=== PATIENT | male | born 1950 | race Caucasian/White ===

== ENCOUNTER 2017-02-25 14:01 | Inpatient (IN) | payer OTHER ==
[~2017-02-25] VITALS: Ht 179.1 cm; Wt 104.2 kg
[2017-02-25] VITALS (11 sets, daily range): BP systolic 132–155; BP diastolic 59–81; PULSE 60–100; RESP 14–20; TEMP 98.4; O2SAT 95–98
[2017-02-25] MEDS ORDERED: SODIUM CHLORIDE 0.9% FLUSH 10 ML FLUSH IVF PRN (14:15)
[2017-02-25] MEDS ORDERED: NITROGLYCERIN 2% OINT 1 GM PACKET TOPICAL ONE (14:15)
[2017-02-25] MEDS ORDERED: ASPIRIN 325 MG TAB PO ONE (14:15)
--- NOTE | 2017-02-25 14:19 | PD ---
HPI Chief Complaint: postcode Time Seen by Provider: 14:11 Travel History International Travel<30 days: No Contact w/Intl Traveler<30days: No Traveled to known affect area: No History of Present Illness HPI 66-year-old male with history of hypertension, presents to the ER today because he states that he was on the beach with [place] when he started not feeling well , collapsed, and his son got help from [employer], and AED was placed and recommended defibrillation, he was defibrillated with return of spontaneous circulation. He is awake, alert, and but does not recall the episode. He is currently complaining of 6 out of 10 substernal sharp left-sided chest pains with some nausea. He denies any shortness of breath or any other symptoms. Modifying Factors: None Associated Signs & Symptoms: Defibrillated, syncope, chest pain Risk Factors: None PFSH Social History Tobacco Use: No Allergies-Medications (Allergen,Severity, Reaction): Coded Allergies: Penicillin (Verified Allergy, Unknown, 02/25/17) Reported Meds & Prescriptions Reported Meds & Active Scripts Active Reported Vitamin E (Vitamin E Acetate) 400 Unit Capsule 400 Units PO DAILY B Complex (B-Complex Vitamins) 1 Cap 1 Cap PO DAILY Ginkgo Biloba (Ginkgo Biloba [place] Extract) 60 Mg Tablet Unknown Dose PO DAILY Ascorbic Acid 500 Mg Tab 500 Mg PO DAILY Vitamin D3 (Cholecalciferol) 1,000 Unit Tab 1,000 Units PO DAILY Turmeric (Turmeric (Curcuma Longa)) 500 Mg Cap 500 Mg PO DAILY Oxycodone (Oxycodone HCl) 10 Mg Tab 10 Mg PO Q6H PRN Review of Systems Except as stated in HPI: all other systems reviewed are Neg Physical Exam Narrative GENERAL: Well-developed elderly white male patient currently in moderate distress. Awake and oriented 3. SKIN: Focused skin assessment warm/dry. HEAD: Atraumatic. Normocephalic. EYES: Pupils equal and round. No scleral icterus. No injection or drainage. ENT: No nasal bleeding or discharge. Mucous membranes pink and moist. NECK: Trachea midline. No JVD. CARDIOVASCULAR: Regular rate and rhythm. No murmur appreciated. Pulses are present and equal bilaterally. RESPIRATORY: No accessory muscle use. Clear to auscultation. Breath sounds equal bilaterally. GASTROINTESTINAL: Abdomen soft, non-tender, nondistended. Hepatic and splenic margins not palpable. MUSCULOSKELETAL: No obvious deformities. No clubbing. No cyanosis. No edema. NEUROLOGICAL: Awake and alert. No obvious cranial nerve deficits. Motor grossly within normal limits. Normal speech. PSYCHIATRIC: Appropriate mood and affect; insight and judgment normal. Data Data Last Documented VS Vital Signs Date Time Temp Pulse Resp B/P Pulse Ox O2 Delivery O2 Flow Rate FiO2 02/25/17 16:28 74 14 136/81 96 Room Air 02/25/17 14:18 2 02/25/17 14:06 98.4 Orders Electrocardiogram (02/25/17 14:11) Ckmb (Isoenzyme) Profile (02/25/17 14:11) Complete Blood Count With Diff (02/25/17 14:11) Comprehensive Metabolic Panel (02/25/17 14:11) Magnesium (Mg) (02/25/17 14:11) Prothrombin Time / Inr (Pt) (02/25/17 14:11) Act Partial Throm Time (Ptt) (02/25/17 14:11) Troponin I (02/25/17 14:11) Chest, Single Ap (02/25/17 14:11) Ecg Monitoring (02/25/17 14:11) Bilateral Bp Monitoring (02/25/17 14:11) Iv Access Insert/Monitor (02/25/17 14:11) Oximetry (02/25/17 14:11) Oxygen Administration (02/25/17 14:11) Sodium Chloride 0.9% Flush (Ns Flush) (02/25/17 14:15) Aspirin (Aspirin) (02/25/17 14:15) Nitroglycerin 2% Oint (Nitroglycerin 2% (02/25/17 14:15) CKMB (02/25/17 14:15) CKMB% (02/25/17 14:15) Heparin Infusion CLAIRE.Q1H (02/25/17 15:34) Heparin Inj (Heparin Inj) (02/25/17 15:45) Heparin Inj (Heparin Inj) (02/25/17 21:45) Heparin Inj (Heparin Inj) (02/25/17 21:45) Heparin-D5w Inj (Heparin-D5w Inj) (02/25/17 15:45) Act Partial Throm Time (Ptt) (02/25/17 15:34) Cbc No Diff, Includes Plts (02/25/17 15:34) Cbc No Diff, Includes Plts (02/28/17 06:00) Act Partial Throm Time (Ptt) (02/25/17 22:34) Occult Blood (Hemoccult) Stool (02/25/17 15:34) Consult Cardiology (02/25/17 ) (Hub Use Only)Inp Phy Cons/Ref (02/25/17 ) Labs Laboratory Tests Test 02/25/17 14:15 White Blood Count 20.5 TH/MM3 Red Blood Count 5.15 MIL/MM3 Hemoglobin 15.6 GM/DL Hematocrit 47.1 % Mean Corpuscular Volume 91.3 FL Mean Corpuscular Hemoglobin 30.3 PG Mean Corpuscular Hemoglobin 33.2 % Concent Red Cell Distribution Width 14.1 % Platelet Count 218 TH/MM3 Mean Platelet Volume 9.1 FL Neutrophils (%) (Auto) 78.0 % Lymphocytes (%) (Auto) 15.8 % Monocytes (%) (Auto) 4.9 % Eosinophils (%) (Auto) 1.0 % Basophils (%) (Auto) 0.3 % Neutrophils # (Auto) 16.0 TH/MM3 Lymphocytes # (Auto) 3.2 TH/MM3 Monocytes # (Auto) 1.0 TH/MM3 Eosinophils # (Auto) 0.2 TH/MM3 Basophils # (Auto) 0.1 TH/MM3 CBC Comment DIFF FINAL Differential Comment Prothrombin Time 10.2 SEC Prothromb Time International 0.9 RATIO Ratio Activated Partial 24.6 SEC Thromboplast Time Sodium Level 143 MEQ/L Potassium Level 3.9 MEQ/L Chloride Level 113 MEQ/L Carbon Dioxide Level 20.0 MEQ/L Anion Gap 10 MEQ/L Blood Urea Nitrogen 22 MG/DL Creatinine 1.33 MG/DL Estimat Glomerular Filtration 54 ML/MIN Rate Random Glucose 177 MG/DL Calcium Level 8.8 MG/DL Magnesium Level 2.1 MG/DL Total Bilirubin 0.7 MG/DL Aspartate Amino Transf 855 U/L (AST/SGOT) Alanine Aminotransferase 946 U/L (ALT/SGPT) Alkaline Phosphatase 82 U/L Total Creatine Kinase 401 U/L Creatine Kinase MB 6.6 NG/ML Creatine Kinase MB % 1.6 % Troponin I 0.07 NG/ML Total Protein 7.1 GM/DL Albumin 3.8 GM/DL MDM Medical Decision Making Medical Screen Exam Complete: Yes Emergency Medical Condition: Yes Medical Record Reviewed: Yes Interpretation(s) EKG shows normal sinus rhythm at a rate of [address] changes in the inferior leads and aVR. Subcentimeter changes. It is unclear whether these are new. Patient has no previous EKG here. Laboratory Tests Test 02/25/17 14:15 White Blood Count 20.5 TH/MM3 (4.0-11.0) Neutrophils (%) (Auto) 78.0 % (16.0-70.0) Neutrophils # (Auto) 16.0 TH/MM3 (1.8-7.7) Monocytes # (Auto) 1.0 TH/MM3 (0-0.9) Chloride Level 113 MEQ/L (98-107) Carbon Dioxide Level 20.0 MEQ/L (21.0-32.0) Blood Urea Nitrogen 22 MG/DL (7-18) Creatinine 1.33 MG/DL (0.60-1.30) Estimat Glomerular Filtration 54 ML/MIN (>89) Rate Random Glucose 177 MG/DL (74-106) Aspartate Amino Transf 855 U/L (15-37) (AST/SGOT) Alanine Aminotransferase 946 U/L (12-78) (ALT/SGPT) Total Creatine Kinase 401 U/L (39-308) Creatine Kinase MB 6.6 NG/ML (0.5-3.6) Troponin I 0.07 NG/ML (0.02-0.05) Last 24 hours Impressions Chest X-Ray 02/25/17 1411 Signed Impressions: Service Date/Time: Saturday, February 25, 2017 14:11 - CONCLUSION: No acute cardiopulmonary disease. Willis Reid MD Differential Diagnosis Defibrillation, chest pain, postcodeACS versus dysrhythmias versus metabolic issues Narrative Course Chest x-ray did not show any signs of acute processes. EKG showed nonspecific ST changes. Lab work shows mild elevation of troponin 0.07. There is mild elevation of LFTs and white blood cell count. His believe this may be secondary to his code, defibrillation, do marginalization. Vital signs are stable in the ER. Case was discussed with Dr. Shrestha who states that he would like the patient to be initiated on heparin. Aspirin and nitroglycerin have been given in the ER. He states that patient will likely need catheterization tomorrow. Planning to admit to medicine [facility]. Case is discussed with Dr. Trinidad for admission. Diagnosis Primary Impression: Cardiac arrest Additional Impression: Chest pain Admitting Information Admitting Physician Requests: Admit Soren Pino MD Feb 25, 2017 14:19 Soren Pino MD Feb 25, 2017 14:19
[2017-02-25 14:57] LABS: BASOPHIL # 0.1 TH/MM3 (0-0.2); BASOPHIL % 0.3 % (0.0-2.0); EOSINOPHIL # 0.2 TH/MM3 (0-0.4); HEMATOCRIT 47.1 % (39.0-51.0); HEMO FLAGS DIFF FINAL; LYMPH % 15.8 % (9.0-44.0); LYMPHOCYTE # 3.2 TH/MM3 (1.0-4.8); MEAN CELL VOLUME 91.3 FL (80.0-100.0); MEAN CORPUSCULAR HEMOGLOBIN 30.3 PG (27.0-34.0); MEAN CORPUSCULAR HGB CONC 33.2 % (32.0-36.0); MONO % 4.9 % (0.0-8.0); PLATELET COUNT 218 TH/MM3 (150-450); RED BLOOD COUNT 5.15 MIL/MM3 (4.50-5.90); RED CELL DISTRIBUTION WIDTH 14.1 % (11.6-17.2); WHITE BLOOD COUNT 20.5 TH/MM3 (4.0-11.0)
--- NOTE | 2017-02-25 14:57 | RADRPT ---
EXAM DATE/TIME: 02/25/2017 14:11 [facility] COMPARISON: No previous studies available for comparison. INDICATIONS : Chest pain and shortness of breath. Passed out in the water at the beach. MEDICAL HISTORY : None. SURGICAL HISTORY : None. ENCOUNTER: Initial ACUITY: 1 day PAIN SCORE: 6/10 LOCATION: Bilateral chest FINDINGS: The lungs are clear without infiltrate, nodule, or mass. There is no appreciable pleural effusion fo r technique. Heart and mediastinum are unremarkable. CONCLUSION: No acute cardiopulmonary disease. Willis Reid MD on February 25, 2017 at 14:55 Board Certified Radiologist. This report was verified electronically.
[2017-02-25 15:04] LABS: APTT (PATIENT) 24.6 SEC (24.3-30.1); INTERNATIONAL NORMALIZED RATIO 0.9 RATIO; PROTHROMBIN TIME - PATIENT 10.2 SEC (9.8-11.6)
[2017-02-25] MEDS ORDERED: TURM500C3 PO (15:14)
[2017-02-25] MEDS ORDERED: GINK60TA10 PO (15:14)
[2017-02-25] MEDS ORDERED: OXYC-395 PO (15:14)
[2017-02-25] MEDS ORDERED: VITA100064 PO (15:14)
[2017-02-25] MEDS ORDERED: ASCO500T PO (15:14)
[2017-02-25 15:16] LABS: ANION GAP 10 MEQ/L (5-15); AST (GOT) 855 U/L (15-37); BLOOD UREA NITROGEN 22 MG/DL (7-18); CHLORIDE 113 MEQ/L (98-107); GLOMERULAR FILTRATION RATE 54 ML/MIN (>89); MAGNESIUM 2.1 MG/DL (1.5-2.5); POTASSIUM 3.9 MEQ/L (3.5-5.1); SODIUM (NA) 143 MEQ/L (136-145)
[2017-02-25 15:17] LABS: ALT (GPT) 946 U/L (12-78)
[2017-02-25] MEDS ORDERED: VITA-136 PO (15:17)
[2017-02-25] MEDS ORDERED: VITACAP7 PO (15:17)
[2017-02-25 15:21] LABS: ALKALINE PHOSPHATASE 82 U/L (45-117); CREATINE KINASE 401 U/L (39-308); TOTAL BILIRUBIN ADULT 0.7 MG/DL (0.2-1.0)
[2017-02-25] MEDS ORDERED: HEPARIN-D5W INJ 250 ML IV SCH (15:45)
[2017-02-25] MEDS ORDERED: HEPARIN SODIUM - IV 10,000 UNITS/10 ML VIAL IV ONE (15:45)
[2017-02-25 15:47] LABS: CKMB 6.6 NG/ML (0.5-3.6)
--- NOTE | 2017-02-25 16:29 | MB ---
cc: RUTHIE RODRIGUEZ MD DATE OF CONSULTATION: 02/25/2017. REASON FOR CONSULTATION: Syncope with apparent ventricular dysrhythmia status post defibrillation HISTORY OF PRESENT ILLNESS: The patient is a very pleasant 66-year gentleman with no prior cardiac history who is visiting from [place]. He was in the water with his son when he began feeling generally unwell as if he might pass out. The next thing he realized was that he is being rushed away by EMS. Apparently per reports of EMS and bystanders, the patient had syncopized, CPR was begun, [employer] used an automatic external defibrillator which indicated defibrillation was required and a shock was delivered. The patient did regain consciousness thereafter. Unfortunately because it was an AED, I do not have any strips or any direct confirmation that it was a ventricular dysrhythmia. Currently the patient is asymptomatic with the exception of reproducible lower chest tenderness where he received CPR. He had no chest pain prior to the syncopal episode. He has no other symptoms such as shortness breath, lightheadedness, dizziness or recent episodes of syncope. PAST MEDICAL HISTORY: As above. CURRENT MEDICATIONS: Heparin drip. ALLERGIES: PENICILLIN. PHYSICAL EXAMINATION: VITAL SIGNS: Afebrile, pulse 97, respiratory rate 19, blood pressure 132/76, satting 96% on two liters. GENERAL: A very pleasant well-appearing gentleman in no distress. NECK: No jugular venous distention. CHEST: Chest wall is reproducibly tender. LUNGS: Clear to auscultation bilaterally. CARDIOVASCULAR: Regular rate and rhythm. No murmurs appreciated. ABDOMEN: Benign. EXTREMITIES: No edema. LABORATORY DATA: White count 20.5, hematocrit 47.1, platelets 218,000. Sodium 143, potassium 3.9, chloride 113, bicarb 20, BUN 22, creatinine 1.3, glucose 177. Liver function tests are notably elevated. Troponin 0.07. IMAGING STUDIES: Chest x-ray shows no acute cardiopulmonary disease. EKGS: EKG shows sinus rhythm with possible old inferior infarct, nonspecific lateral S-T changes. Minimal / nonspecific elevation in aVr. IMPRESSION: Syncope. The patient seems to have had an episode of cardiogenic syncope / aborted sudden cardiac that was successfully defibrillated. He will require a cardiac catheterization to exclude coronary artery disease, which would be the most likely diagnosis for a ventricular dysrhythmia which an AED would determine required defibrillation. He is on a heparin drip currently. He does not have any angina type chest pain and his EKG does not show any definitive S-T elevations. Thus, I believe a cardiac catheterization can occur non- emergently, though if his clinical condition changes then a cardiac catheterization could be done more urgently. He will be monitored closely on a cardiac floor. At the moment, I will hold off on amiodarone given the LFT elevation and also renal insufficiency, but if significant ectopy is seen on the monitor, I would likely initiate it at that time. Further recommendations will be based on the clinical course. Thank you again for the opportunity to participate in this patient's care. MD DEBORAH Fermin/KELECHI /4:08 PM /4:23 PM
[2017-02-25] MEDS ORDERED: MORPHINE SULFATE 4 MG/ML INJ IV PUSH ONE (17:15)
[2017-02-25] MEDS ORDERED: SENNOSIDES 8.6 MG TAB PO PRN (17:15)
[2017-02-25] MEDS ORDERED: ONDANSETRON HCL 4 MG/2 ML VIAL IVP PRN (17:15)
[2017-02-25] MEDS ORDERED: NALOXONE HCL 0.4 MG/ML AMP IV PRN (17:15)
[2017-02-25] MEDS ORDERED: MORPHINE SULFATE 4 MG/ML INJ IV PRN (17:15)
[2017-02-25] MEDS ORDERED: BISACODYL 10 MG SUPP RECTAL PRN (17:15)
[2017-02-25] MEDS ORDERED: LACTULOSE SYRUP 20 GM/30 ML CUP PO PRN (17:15)
[2017-02-25] MEDS ORDERED: MAGNESIUM HYDROXIDE SUSP 30 ML CUP PO PRN (17:15)
[2017-02-25] MEDS ORDERED: SODIUM CHLORIDE 0.9% FLUSH 10 ML FLUSH IV FLUSH PRN (17:15)
--- NOTE | 2017-02-25 17:47 | HHI.HP ---
HPI Service [facility] Hospitalists Primary Care Physician Non-Staff Admission Diagnosis dysrhythmia/chest pain/syncope Diagnoses: Chief Complaint: "I passed out and they did CPR on me." Travel History International Travel<30 Days: No Contact w/Intl Traveler <30 Da: No Traveled to Known Affected Are: No History of Present Illness Written by Ham Coronel, acting as scribe for Dr. Preston Knowles on 02/25/17 at 17:45. Mr. Reyes is 66, visiting from [place] with previous history of hypertension and stenosis of L4-L5. Mr. Reyes reported waking well except for some pain leading him to take an Aleve. He then reportedly went to a local beach to watch his son surf. He stated he was standing in the water watching his son with the development of dizziness and "I felt like I was going to go down." Pt stated he started to walk into shore and then does not recall succeeding events. Per reports, he did collapse and the [employer] began CPR, placed an AED on him and it indicated shock was required. One shock was delivered and Mr. Reyes's had spontaneous return of circulation. He was subsequently brought to [facility] ED for further treatment. At present, Mr. Reyes reports rib pain and noted "it feels like I got the crap kicked out of me." He denied headache, blurred vision, nausea, vomiting , shortness of breath. He did endorse "maybe having some diarrhea." Review of Systems Except as stated in HPI: all other systems reviewed are Neg Past Family Social History Past Medical History Hypertension. Past Surgical History Bilateral wrist repair Hernia repair Reported Medications Reported Meds & Active Scripts Active Reported Vitamin E (Vitamin E Acetate) 400 Unit Capsule 400 Units PO DAILY B Complex (B-Complex Vitamins) 1 Cap 1 Cap PO DAILY Ginkgo Biloba (Ginkgo Biloba [place] Extract) 60 Mg Tablet Unknown Dose PO DAILY Ascorbic Acid 500 Mg Tab 500 Mg PO DAILY Vitamin D3 (Cholecalciferol) 1,000 Unit Tab 1,000 Units PO DAILY Turmeric (Turmeric (Curcuma Longa)) 500 Mg Cap 500 Mg PO DAILY Oxycodone (Oxycodone HCl) 10 Mg Tab 10 Mg PO Q6H PRN Allergies: Coded Allergies: Penicillin (Verified Allergy, Unknown, 02/25/17) Active Ordered Medications Current Medications Medications (Trade) Dose Ordered Sig/Esteban Route Start Time Stop Time Status Last Admin (NS Flush) 2 ml UNSCH PRN IVF 02/25/17 14:15 (Heparin Inj) 5,000 units UNSCH PRN IV 02/25/17 21:45 Heparin Sodium (Porcine) 2500 units 2,500 units UNSCH PRN IV 02/25/17 21:45 (Heparin-D5W Inj) 250 ml @ 0 mls/hr TITRATE IV 02/25/17 15:45 02/25/17 16:40 (Morphine Inj) 2 mg ONCE ONCE IV PUSH 02/25/17 17:15 02/25/17 17:16 Family History Half brother reported to have hypertension and hyperlipidemia. Otherwise, he denied significant family medical history Social History He endorsed smoking cigarettes (pack year history and length of use not disclosed) two years ago. Currently, he "vapes." No alcohol use for the past 13 years. Recreational and illicit drug use was denied. Physical Exam Vital Signs Vital Signs Date Time Temp Pulse Resp B/P Pulse Ox O2 Delivery O2 Flow Rate FiO2 02/25/17 16:28 74 14 136/81 96 Room Air 02/25/17 15:30 90 141/72 02/25/17 14:18 97 132/76 96 Nasal Cannula 2 02/25/17 14:18 99 19 134/75 02/25/17 14:18 96 Nasal Cannula 2 02/25/17 14:06 98.4 100 16 132/76 95 Physical Exam GENERAL: This is a well-nourished, well-developed patient, in no apparent distress. SKIN: No rashes, ecchymoses or lesions. Cool and dry. HEAD: Atraumatic. Normocephalic. EYES: Pupils equal round and reactive. Extraocular motions intact. No scleral icterus. No injection or drainage. ENT: Nose without bleeding or purulent drainage. Uvula midline. Airway patent. Bite graves noted on surface of tongue. NECK: Trachea midline. No JVD or lymphadenopathy. Supple and nontender. CARDIOVASCULAR: Regular rate and rhythm without murmurs, gallops, or rubs. RESPIRATORY: Clear to auscultation. Breath sounds equal bilaterally. No wheezes , rales, or rhonchi. GASTROINTESTINAL: Abdomen soft, non-tender, nondistended. No hepato- splenomegaly or guarding. MUSCULOSKELETAL: Extremities without clubbing, cyanosis, or edema. No joint tenderness, effusion, or edema noted. NEUROLOGICAL: Awake, alert and oriented x3. Cranial nerves II through XII intact. Motor and sensory grossly within normal limits. Five out of 5 muscle strength in all muscle groups. Speech was clear and fluent. Laboratory Laboratory Tests Test 02/25/17 14:15 White Blood Count 20.5 Red Blood Count 5.15 Hemoglobin 15.6 Hematocrit 47.1 Mean Corpuscular Volume 91.3 Mean Corpuscular Hemoglobin 30.3 Mean Corpuscular Hemoglobin 33.2 Concent Red Cell Distribution Width 14.1 Platelet Count 218 Mean Platelet Volume 9.1 Neutrophils (%) (Auto) 78.0 Lymphocytes (%) (Auto) 15.8 Monocytes (%) (Auto) 4.9 Eosinophils (%) (Auto) 1.0 Basophils (%) (Auto) 0.3 Neutrophils # (Auto) 16.0 Lymphocytes # (Auto) 3.2 Monocytes # (Auto) 1.0 Eosinophils # (Auto) 0.2 Basophils # (Auto) 0.1 CBC Comment DIFF FINAL Differential Comment Prothrombin Time 10.2 Prothromb Time International 0.9 Ratio Activated Partial 24.6 Thromboplast Time Sodium Level 143 Potassium Level 3.9 Chloride Level 113 Carbon Dioxide Level 20.0 Anion Gap 10 Blood Urea Nitrogen 22 Creatinine 1.33 Estimat Glomerular Filtration 54 Rate Random Glucose 177 Calcium Level 8.8 Magnesium Level 2.1 Total Bilirubin 0.7 Aspartate Amino Transf 855 (AST/SGOT) Alanine Aminotransferase 946 (ALT/SGPT) Alkaline Phosphatase 82 Total Creatine Kinase 401 Creatine Kinase MB 6.6 Creatine Kinase MB % 1.6 Troponin I 0.07 Total Protein 7.1 Albumin 3.8 Result Diagram: 02/25/17 1415 02/25/17 1415 Imaging Last Impressions Chest X-Ray 02/25/17 1411 Signed Impressions: Service Date/Time: Saturday, February 25, 2017 14:11 - CONCLUSION: No acute cardiopulmonary disease. Willis Reid MD Assessment and Plan Problem List: (1) Cardiac arrest ICD Code: I46.9 Status: Acute (2) Chest pain ICD Code: R07.9 Status: Acute (3) Creatinine elevation ICD Code: R79.89 Status: Acute (4) Shock liver ICD Code: K72.00 Status: Acute Assessment and Plan Mr. Reyes is 66, visiting from [place] with previous history of hypertension and stenosis of L4-L5. Cardiac arrest Chest pain Creatine elevation Shock liver -Admit to Cardiac unit -Telemetry -Serial troponin and CPK ordered, trend -Cardiology consulted, seen, and following pt, cardiac catheterization likely in near future. -Heparin drip -Hepatitis panel, liver ultrasound ordered. -Labs ordered for am -Gentle IV hydration -Avoid nephrotoxic agents. Diet: healthy heart DVT prophylaxis: Heparin I spoke with Dr. Shrestha, Cardiology, who recommended admission to [facility] for close monitoring. This note was transcribed by suad Coronel. I, Dr. Greg Knowles personally performed the history, physical exam, and medical decision making; and confirmed the accuracy of the information in the transcribed note. Authenticated by Dr. Greg Knowles on 02/25/17 at 17:54. Code Status Full Discussed Condition With Pt and ED staff Physician Certification 2 Midnight Certification Type: Admission for Inpatient Services Order for Inpatient Services The services are ordered in accordance with Medicare regulations or non- Medicare payer requirements, as applicable. In the case of services not specified as inpatient-only, they are appropriately provided as inpatient services in accordance with the 2-midnight benchmark. Estimated LOS (days): 3 Three days is the estimated time the patient will need to remain in the hospital , assuming treatment plan goals are met and no additional complications. Post-Hospital Plan: Not yet determined Problem Qualifiers (1) Chest pain: Qualified Code: R07.89 - Other chest pain Ham Coronel Jr. Feb 25, 2017 17:47 Greg Knowles MD Feb 25, 2017 17:55
[2017-02-25] MEDS ORDERED: MORPHINE SULFATE 8 MG/ML INJ IV PUSH ONE (18:00)
[2017-02-25] MEDS ORDERED: NS + KCL 20 MEQ INJ 1,000 ML IV SCH (20:00)
[2017-02-25] MEDS: SODIUM CHLORIDE 0.9% FLUSH 10 ML FLUSH IV FLUSH SCH (21:17)
[2017-02-25] MEDS: DOCUSATE SODIUM 50 MG/SENNA 8.6 MG TAB PO SCH (21:17)
[2017-02-25] MEDS ORDERED: HEPARIN SODIUM - IV 10,000 UNITS/10 ML VIAL IV PRN ×2 (21:45)
[2017-02-25 21:57] LABS: CKMB 10.6 NG/ML (0.5-3.6)
[2017-02-25] MEDS: MORPHINE SULFATE 4 MG/ML INJ IV PRN (22:14)
--- NOTE | 2017-02-25 23:13 | RADRPT ---
EXAM DATE/TIME: 02/25/2017 22:28 [facility] COMPARISON: No previous studies available for comparison. INDICATIONS : Increased lab values. MEDICAL HISTORY : Hypertension. SURGICAL HISTORY : Tonsillectomy. Hernia repair. Bilateral wrist repair. ENCOUNTER: Initial ACUITY: 1 day PAIN SCORE: 10/10 LOCATION: Right upper quadrant MEASUREMENTS: LIVER: 16.5 cm length COMMON DUCT: 3 mm RIGHT KIDNEY: 11.1 x 6.4 x 6.0 cm SPLEEN: 9.6 cm length FINDINGS: LIVER: Increased echotexture without focal mass or ductal dilatation. The liver parenchyma is inhomogeneous and there is mild hepatomegaly. Main portal vein is patent with hepatofugal flow. COMMON DUCT: No intraluminal mass or stone visualized. GALLBLADDER: Contains no stones, or pericholecystic fluid. Mild wall thickening PANCREAS: The visualized portions are within normal limits. RIGHT KIDNEY: No hydronephrosis, stone or mass. SPLEEN: No focal lesion. CONCLUSION: 1. Increased echotexture of the liver parenchyma which is inhomogeneous and there is borderline hepat omegaly. This can be seen with hepatocellular disease or hepatic steatosis. 2. Mild gallbladder wall thickening is noted. No stones are identified. Yves Zepeda MD on February 25, 2017 at 23:10 Board Certified Radiologist. This report was verified electronically.
[2017-02-25 23:35] LABS: APTT (PATIENT) 35.5 SEC (24.3-30.1)
[2017-02-26] VITALS (19 sets, daily range): BP systolic 156–180; BP diastolic 76–90; PULSE 53–75; RESP 18–20; TEMP 97.5–98.7; O2SAT 95–100
[2017-02-26 02:15] LABS: AUTOMATED NEUTROPHIL # 7.9 TH/MM3 (1.8-7.7); BASOPHIL # 0.1 TH/MM3 (0-0.2); BASOPHIL % 0.5 % (0.0-2.0); EOSINOPHIL # 0.1 TH/MM3 (0-0.4); EOSINOPHIL % 0.6 % (0.0-4.0); HEMATOCRIT 39.1 % (39.0-51.0); HEMO FLAGS DIFF FINAL; LYMPH % 16.2 % (9.0-44.0); LYMPHOCYTE # 1.8 TH/MM3 (1.0-4.8); MEAN CELL VOLUME 90.2 FL (80.0-100.0); MEAN CORPUSCULAR HEMOGLOBIN 30.3 PG (27.0-34.0); MEAN CORPUSCULAR HGB CONC 33.6 % (32.0-36.0); MONO % 10.8 % (0.0-8.0); NEUT % 71.9 % (16.0-70.0); PLATELET COUNT 169 TH/MM3 (150-450); RED BLOOD COUNT 4.34 MIL/MM3 (4.50-5.90); RED CELL DISTRIBUTION WIDTH 14.1 % (11.6-17.2)
[2017-02-26 03:02] LABS: ALT (GPT) 632 U/L (12-78); ANION GAP 10 MEQ/L (5-15); AST (GOT) 496 U/L (15-37); BICARBONATE 21.5 MEQ/L (21.0-32.0); BLOOD UREA NITROGEN 23 MG/DL (7-18); CHLORIDE 113 MEQ/L (98-107); GLOMERULAR FILTRATION RATE 82 ML/MIN (>89); POTASSIUM 4.1 MEQ/L (3.5-5.1); SODIUM (NA) 144 MEQ/L (136-145)
[2017-02-26 03:17] LABS: ALKALINE PHOSPHATASE 51 U/L (45-117); CREATINE KINASE 637 U/L (39-308); TOTAL BILIRUBIN ADULT 0.6 MG/DL (0.2-1.0)
[2017-02-26 03:37] LABS: CKMB 10.5 NG/ML (0.5-3.6)
[2017-02-26] MEDS: MORPHINE SULFATE 4 MG/ML INJ IV PRN ×3 (05:06→12:57)
[2017-02-26 05:50] LABS: APTT (PATIENT) 41.3 SEC (24.3-30.1)
--- NOTE | 2017-02-26 08:40 | HHI.PR ---
Subjective Remarks Follow up cardiac arrest, elevated LFTs. The patient states that he is still having significant chest pain, worse with movement and coughing. Denies shortness of breath. Denies nausea, vomiting, abdominal pain. Objective Vitals Vital Signs Date Time Temp Pulse Resp B/P Pulse Ox O2 Delivery O2 Flow Rate FiO2 02/26/17 08:00 56 02/26/17 07:00 61 02/26/17 07:00 98.6 62 20 156/85 97 02/26/17 06:00 60 02/26/17 05:31 18 02/26/17 05:00 64 02/26/17 04:00 64 02/26/17 03:00 98.7 75 18 159/76 98 02/26/17 03:00 74 02/26/17 02:00 60 02/26/17 01:00 62 02/26/17 00:00 62 02/25/17 23:00 80 02/25/17 23:00 98.4 61 18 148/74 98 02/25/17 22:00 60 02/25/17 21:00 66 02/25/17 20:00 64 02/25/17 19:00 72 02/25/17 19:00 98.4 71 20 150/77 97 02/25/17 18:49 74 16 155/76 96 02/25/17 18:02 78 20 147/59 02/25/17 16:28 74 14 136/81 96 Room Air 02/25/17 15:30 90 141/72 02/25/17 14:18 97 132/76 96 Nasal Cannula 2 02/25/17 14:18 99 19 134/75 02/25/17 14:18 96 Nasal Cannula 2 02/25/17 14:06 98.4 100 16 132/76 95 I/O 02/25/17 02/25/17 02/25/17 02/26/17 02/26/17 02/26/17 07:00 15:00 23:00 07:00 15:00 23:00 Intake Total 785 ml Output Total 175 ml Balance 610 ml Intake Oral 240 ml IV Total 545 ml Output Urine Total 175 ml # Voids 1 # Bowel Movements 1 Result Diagram: 02/26/17 0154 02/26/17 0154 Imaging Last Impressions Chest X-Ray 02/25/17 1411 Signed Impressions: Service Date/Time: Saturday, February 25, 2017 14:11 - CONCLUSION: No acute cardiopulmonary disease. Willis Reid MD Liver Ultrasound 02/25/17 0000 Signed Impressions: Service Date/Time: Saturday, February 25, 2017 22:28 - CONCLUSION: 1. Increased echotexture of the liver parenchyma which is inhomogeneous and there is borderline hepatomegaly. This can be seen with hepatocellular disease or hepatic steatosis. 2. Mild gallbladder wall thickening is noted. No stones are identified. Yves Zepeda MD Objective Remarks General: No acute distress. Heart: Regular rate and rhythm. No murmur. Lungs: Clear to auscultation bilaterally. No wheezes, rales, or rhonchi. Breathing is nonlabored. Abdomen: Soft, nontender, nondistended. Extremities: No lower extremity edema. Psych: Alert and oriented. Procedures None Urinary Catheter: No Vascular Central Line Catheter: No A/P Problem List: (1) Cardiac arrest ICD Code: I46.9 Status: Acute (2) Chest pain ICD Code: R07.9 Status: Acute (3) Creatinine elevation ICD Code: R79.89 Status: Acute (4) Shock liver ICD Code: K72.00 Status: Acute (5) Leukocytosis ICD Code: D72.829 Status: Acute (6) Elevated LFTs ICD Code: R79.89 Status: Acute (7) Acute kidney injury ICD Code: N17.9 Status: Acute (8) Elevated troponin I level ICD Code: R74.8 Status: Acute Assessment and Plan 1. Cardiac arrest: [place] AED was applied and determined a shockable rhythm. One shock was delivered. He continues to report significant chest pain with movement, deep breaths, coughing. Appreciate cardiology recommendations. Serial cardiac enzymes show increased troponin. Continue heparin drip. Patient will likely need cardiac catheterization soon. Continue telemetry monitoring. 2. Elevated LFTs: Likely secondary to shock liver. Improving. Liver ultrasound noted. Hepatitis panel pending. 3. Acute kidney injury: BUN/creatinine improving. Continue gentle IV fluid hydration. 4. DVT prophylaxis: On heparin drip. 5. Leukocytosis: Resolved. Likely stress reaction. Problem Qualifiers (1) Chest pain: Qualified Code: R07.89 - Other chest pain Greg Knowles MD Feb 26, 2017 08:39
[2017-02-26] MEDS: DOCUSATE SODIUM 50 MG/SENNA 8.6 MG TAB PO SCH ×2 (08:59→21:00)
[2017-02-26] MEDS: SODIUM CHLORIDE 0.9% FLUSH 10 ML FLUSH IV FLUSH SCH ×2 (09:00→21:00)
--- NOTE | 2017-02-26 12:46 | EKG ---
Date Performed: 02/25/2017 Time Performed: 14:15:06 PTAGE: 66 years EKG: SINUS TACHYCARDIA POSSIBLE LEFT ATRIAL ENLARGEMENT INFERIOR MYOCARDIAL INFARCTION ABNORMAL ECG INTERPRETATION BASED ON A DEFAULT AGE OF 40 YEARS NO PREVIOUS TRACING Lateral and anterolateral changes are suggestive of ischemia DOCTOR: Christian Shrestha Interpretating Date/Time 02/26/2017 12:45:00
--- NOTE | 2017-02-26 12:47 | EKG ---
Date Performed: 02/25/2017 Time Performed: 21:51:34 PTAGE: 66 years EKG: Sinus rhythm Leftward axis Inferior infarct - age undetermined Abnormal ECG PREVIOUS TRACING : 02/25/2017 14.15 Since prior tracing, sinus rate has slowed. Previously seen ST changes have improved. DOCTOR: Christian Shrestha Interpretating Date/Time 02/26/2017 12:45:38
--- NOTE | 2017-02-26 12:47 | EKG ---
Date Performed: 02/26/2017 Time Performed: 03:41:08 PTAGE: 66 years EKG: Sinus rhythm Inferior infarct - age undetermined Abnormal ECG PREVIOUS TRACING : 02/25/2017 21.51 Compared to prior tracing no significant change. DOCTOR: Christian Shrestha Interpretating Date/Time 02/26/2017 12:45:51
--- NOTE | 2017-02-26 13:17 | MB ---
cc: ELMER ARCOS DATE OF CONSULTATION: 02/26/2017. REASON FOR CONSULTATION: Ventricular fibrillation arrest / syncope status post defibrillation. HISTORY OF PRESENT ILLNESS: 66-year-old male with no prior cardiac medical history who was brought into the emergency department via EMS after a witnessed syncopal event. The patient has no recollection of the event that brought him into the hospital; however, per records [place] when all of a sudden he loss consciousness, he got CPR and automated external defibrillator indicated the fibrillation and he was shocked apparently once; however, there is no documentation on the chart. The patient regained a spontaneous circulation. He was admitted to the hospital and admitted to [facility] on telemetry. No acute S-T changes. Troponins are elevated. He has no complaints of chest pain, shortness of breath, dizziness or recent episode syncope. He does report chest pain on palpation today. Interventional cardiology has been consulted for left heart catheterization. REVIEW OF SYSTEMS: Negative except for what is mentioned in the history of present illness. PAST MEDICAL HISTORY: None. CARDIAC MEDICATIONS AT HOME: None. ALLERGIES: PENICILLIN. FAMILY HISTORY: No cardiac history. SOCIAL HISTORY: Denies illicit drug use, smoking or alcohol use. PHYSICAL EXAMINATION: VITAL SIGNS: Temperature 98, pulse 61, respiratory rate 20, blood pressure 156/ 85, O2 sat 97% room air. GENERAL: He is awake, alert and oriented times three in no acute distress. NECK: No jugular venous distention. CHEST: Regular rate and rhythm. No murmurs, rubs or gallops. He is tender on palpation across the chest. LUNGS: Clear to auscultation bilaterally. No wheezing. No rales. No rhonchi. ABDOMEN: The abdomen is soft, nontender and nondistended with positive bowel sounds. EXTREMITIES: There is no cyanosis or edema. Pulses throughout. LABS: CBC: White count 11, hemoglobin 13, hematocrit 39, platelet count 169,000. Chemistries: Sodium 144, potassium 4.1, BUN 23, creatinine 0.92. Troponin 0.07, 1.7 and 1.7. INR 0.9 Microbiology - none. IMAGING STUDIES: Chest x-ray: No acute cardiopulmonary process. Liver ultrasound: There is borderline hepatomegaly. EKGS: EKG shows normal sinus rhythm with nonspecific S-T changes. ASSESSMENT AND PLAN: 66-year-old male presented with syncope aborted with successful AED. His cardiac risk factors are age, hypertension. Troponins elevated. Unclear in the reason for the syncope, but likely to be cardiac in nature. I think it is reasonable to risk stratify coronary artery disease with a left heart catheterization. The risks and benefits of left cardiac catheterization and possible PCI including but not limited to neurovascular trauma, infection, bleeding acute kidney injury, stroke, emergent bypass surgery and have been explained to the patient. The patient understands the risks and is willing to proceed new. Will keep him n.p.o. We will take him to the orthodontic laboratory technician today. Further therapy to be determined. MD GERTRUDIS Funes/KELECHI /12:33 PM /1:08 PM IVONE
[2017-02-26 13:42] LABS: APTT (PATIENT) 40.9 SEC (24.3-30.1)
[2017-02-26] MEDS ORDERED: IOHEXOL 350 MG/ML 100 ML BTL (for Cath Lab) OTHER ONE (14:20)
[2017-02-26] MEDS ORDERED: IOHEXOL 350 MG/ML 50 ML BTL (for Cath Lab) OTHER ONE (14:20)
[2017-02-26] MEDS ORDERED: HEPARIN-NS/PF INJ 500 ML ONE (14:27)
[2017-02-26] MEDS ORDERED: MIDAZOLAM HCL 2 MG/2 ML VIAL ONE ×2 (14:28→14:47)
[2017-02-26] MEDS ORDERED: HEPARIN SODIUM - IV 10,000 UNITS/10 ML VIAL ONE (14:47)
[2017-02-26] MEDS ORDERED: SODIUM CHLOR 0.9% 1000 ML INJ 1,000 ML IV SCH (15:49)
--- NOTE | 2017-02-26 15:50 | CATHPROC ---
[employer] HIS Report Study Information Study Number Admission Scheduled Start Study Start [id number] Feb 25 2017 4:37PM 02/26/2017 Feb 26 2017 2:26PM Study Type [place] Service Left Heart Cath Cardiac Catheterization Admit Source Facility Department Emergency department [facility] [place] Physician and Clinical Staff Initial Aris Cedeño Critical Care Registered Nurse Francisco Jewell,[place] Critical Care Registered Nurse Lakia Do RN Recorder Ileana Estrella,RT(R) Scrub Zunilda Ordoñez,EULALIA TECH2 Procedures Performed Procedure Location (Site) Vessel Name Coronary Angiograms RCA Right Coronary LV Gram-hand inj. LV LV Ventricle PTCA ADD ON'S Wire insertion Fem Art (right) Femoral Art Equipment Time Purse Maker Description Size Mfg Part Number Used/Scraped PERCLOSE, PRO GLIDE CLOSER 15:35 [employer] FR 6 [id number] *[id number] Used DEVICE WIRE, BALANCE MIDDLEWEIGHT [id number] 14:48 [employer] 190CM Used 190CM *[id number] WIRE, BALANCE MIDDLEWEIGHT [id number] 14:48 [employer] 190CM Used 190CM *[id number] 15:22 [employer] WIRE, DOC EXTENSION 145CM 145CM 53515 *[id number] Used TRANSDUCER, TRUWAVE [id number] 14:34 PEREZ DO * Used W/STOCKCOCK *[id number] 15:15 [employer] WIRE, CHOICE EXTRA 182CM 182CM Used *[id number]-502-10.0- INTRODUCER SET, 14:34 [employer] FR 5 SC-NT-U-SST Used MICROPUNCTURE, STIFFENED *[id number] 534-520T *[id number] 534-521T *[id number] 14:34 [employer] PACK, CCL CUSTOM * Used *[id number] BALLOON, 1.25 X 6MM SPRINTER [id number] 15:22 MEDTRONIC 6MM Used LEGEND OTW *[id number] 15:11 [employer] BALLOON, 2.0 X 6MM EUPHORA 6MM Used *[id number] 14:48 [employer]/AVE EBU 3.0 Z2 GUIDE CATHETER FR 6 Used *[id number] 15:06 [employer]/AVE EBU 4.0 Z2 GUIDE CATHETER FR 6 Used *[id number] 14:49 [employer] 30 AMITA INDEFLATOR Used *[id number] 15:34 [employer] - Dein Lernprogramm im Leben MEDICAL SHEATH, FR6.5 PRELUDE 11CM FR 6.5 038ACT Used *[id number] 14:34 [employer] - Dein Lernprogramm im Leben MEDICAL WIRE, 3MMJ .035 180CM 180CM Used *[id number] [id number] 14:34 NAMIC MANIFOLD, 4 PORT * Used *[id number] 14:34 NYCOMED OMNIPAQUE, 350 MG, 150ML 150ML [id number] Used 14:49 NYCOMED OMNIPAQUE, 350 MG, 150ML 150ML [id number] Used 14:50 NYCOMED OMNIPAQUE, 350 MG, 150ML 150ML [id number] Used [id number] 14:34 [employer] BL[employer]ET,WARM AIR CCL * Used *[id number] 14:34 [employer]ox MEDICAL SHEATH, FR5 TERUMO (10CM) FR 5 [id number] Used WIRE, RUNTHROUGH NS FLOPPY 25-1011 15:01 TERUMO MEDICAL 180CM Used .014 180CM *[id number] History: Allergies Allergy Reaction Penicillin History: Risk Factors Family History of Hypertension Dyslipidemia Previous OR Previous Heart Failure Premature CAD Yes Yes No No No Prior Valve Prior PCI Prior CABG Surgery No No No Cerebrovascular Peripheral Artery Chronic Lung On Dialysis Diabetes Disease Disease Disease No No No No No History: Stress Tests Stress or Imaging Studies Performed No History: Arrhythmias Selection Items Sustained VT History: Other Disease Selection Items HTN History: Other Current Smoker Method Yes Cigarettes Labs Hgb (g/dl) Hct (%) RBC (MIL/MM3) WBC (l/cumm) Platelets (thousands) 11.60-17.00 35.00-51.00 4.00-5.90 4.00-11.00 150.00-450.00 13.1 39.1 4.3 11 169 Glucose (mg/dl) BUN (mg/dl) Creatinine (mg/dl) BUN:Creatinine (1:x) 74.00-106.00 7.00-18.00 0.50-1.30 10.00-20.00 106 23 0.9 25.6 Na (meq/l) K (meq/l) Cl (meq/l) CO2 (mmol/L) Ca (mg/dl) 136.00-145.00 3.50-5.10 98.00-107.00 21.00-32.00 8.50-10.10 144 4.1 113 21.5 7.9 PT (sec) PTT (sec) INR (PTT:PT) 9.80-11.60 24.30-30.10 0.90-1.10 10.2 40.9 0.9 Troponin I (ng/ml) CPK (u/l) CPK-MB (ng/ML) 0.02-0.05 26.00-308.00 0.50-3.60 1.7 637 10.5 Medication Medication Total Dose (Bolus/Oral) Medication Total Dosage/Unit 1% XYLOCAINE 20 mL FENTANYL 50 mcg HEPARIN 8000 units VERSED 4 mg Medications (Bolus/Oral) Medication Time Given Dosage/Unit Administered By Reason VERSED 02/26/2017 2:31:17 PM 2 mg Lakia Do 2 mg VERSED given in lab by Lakia Do RN via Peripheral IV. FENTANYL 02/26/2017 2:32:00 PM 50 mcg Lakia Do 50 mcg FENTANYL given in lab by Lakia Do RN via Peripheral IV. 1% XYLOCAINE 02/26/2017 2:35:50 PM 20 mL Aris Henriquez 20 mL 1% XYLOCAINE given in lab by Aris Henriquez in Right Groin via Subcutaneous. VERSED 02/26/2017 2:48:37 PM 1 mg Francisco Jewell 1 mg VERSED given in lab by Francisco Jewell RN via Peripheral IV. HEPARIN 02/26/2017 2:49:46 PM 5000 units Francisco Jewell 5000 units HEPARIN given in lab by Francisco Jewell RN via Peripheral IV. VERSED 02/26/2017 3:06:30 PM 0.5 mg Francisco Jewell 0.5 mg VERSED given in lab by Francisco Jewell RN via Peripheral IV. HEPARIN 02/26/2017 3:09:15 PM 3000 units Lakia Do 3000 units HEPARIN given in lab by Lakia Do RN via Peripheral IV. VERSED 02/26/2017 3:25:23 PM 0.5 mg Francisco Jewell 0.5 mg VERSED given in lab by Francisco Jewell RN via Peripheral IV. Medication (Drip) Medication Time Given Dosage/Unit Concentration/Unit Diluent (ml) Solution IV Solutions 02/26/2017 2:34:28 PM 0 mL (IV) 500 NaCl .9 Patient arrived on IV Solutions in Left Antecubital via Peripheral IV. Pump/Drip Flow = 20 ml/hr usin g NaCl .9. Initial Case Assessment Cardiovascular HR Rhythm NIBP Chest Pain 46 eliud 180/80 0 Edema Present Skin color Skin None Normal Warm Circulatory - Right Pulses Dorsalis Pedis Femoral 2 2 Scale (0,1,2,3,4,d) Circulatory - Left Pulses Dorsalis Pedis Femoral 2 2 Scale (0,1,2,3,4,d) Circulatory - Lower Extremities Color Lower Right Color Lower Left Normal Normal Neurological State Oriented to time-place- Alert Moves all extremities person Respiration - General Respiration Rate SpO2 (%) O2 (lpm) (B/min) 15 98 2 Final Case Assessment Cardiovascular HR Rhythm Chest Pain 54 ELIUD 0 Edema Present Skin color Skin None Normal Warm Circulatory - Right Pulses Dorsalis Pedis Femoral 2 2 Scale (0,1,2,3,4,d) Circulatory - Left Pulses Dorsalis Pedis Femoral 2 2 Scale (0,1,2,3,4,d) Circulatory - Lower Extremities Color Lower Right Color Lower Left Normal Normal Neurological State Oriented to time-place- Alert Moves all extremities person Respiration - General Respiration Rate SpO2 (%) O2 (lpm) (B/min) 18 93 2 Chronological Log Time Study Chronological Log 14:20:57 Patient arrived via Bed. Vitals capture started with the following parameters, Patient=Adult, Interval=5 min, Initial Pr mfevnd=426 mmHg, 14:25:52 Deflation Rate=5 mmHg Vitals capture started with the following parameters, Patient=Adult, Interval=5 min, Initial Pr jzodtx=743 mmHg, 14:27:46 Deflation Rate=5 mmHg 14:28:28 HR=54 bpm, XPDZ=489/74 mmhg, SpO2=99.0 %, Resp=13 B/min, Pain=0, Miki=10, Abdullahi=2 14:31:17 2 mg VERSED given in lab by Lakia Do, RN via Peripheral IV. 14:32:00 50 mcg FENTANYL given in lab by Lakia Do, RN via Peripheral IV. 14:32:53 Reference ECG taken 14:33:10 Patient Name, D.O.B, / Armband Verified By R.N. 14:33:11 Consent signed by the physician and the patient and verified by the [place] staff. 14:33:13 Pre-op and post- op instructions given; patient acknowledges understanding of instructions. 14:33:14 Skin Breakdown-none 14:33:29 HR=63 bpm, XLOH=515/80 mmhg, SpO2=97.0 %, Resp=13 B/min, Pain=0, Miki=10, Abdullahi=2 14:33:55 Pressure channel 1 zeroed. 14:34:15 Patient Warmer Placed on the Table. 14:34:17 A # 20 IV was noted in the Antecubital (left). Grade = 0 14:34:28 Patient arrived on IV Solutions in Left Antecubital via Peripheral IV. Pump/Drip Flow = 20 ml/hr using NaCl .9. 14:34:41 History and physical on the chart or being dictated. Assessment: Initial Case, HR=46 BPM, Rhythm=eliud, RIMG=556/80 mmhg, Chest Pain=0, Edema=None, Color=Normal, Skin = Warm Right Pulses: Jonas Ped=2, Femoral=2 Left Pulses: Jonas Ped=2, Femoral=2 14:34:51 Lower Right Extremities: Color=Normal Lower Left Extremities: Color=Normal Neurological: State=Alert, Ox3, HERBERT Respiration: Resp=15 B/min, SpO2=98 %, O2=2 lpm 14:35:25 Bilateral groins prepped with 2% chlorhexidine, and with a 3 min. waiting time. 14:35:30 MD arrived. Time Out. Correct patient, correct procedure,correct physician, ,power injector not loaded with contrast with surgical 14:35:34 team present. Time Out Concurred by MD, individual staff and NETWORK DEVELOPER in procedure 14:35:42 Case Start 14:35:43 Verbal Stimulation=2 Physical Stimulation=2 Airway=2 Respiration=2 TOTAL=8. (0=absent, 1=li mited, 2=present) 14:35:50 20 mL 1% XYLOCAINE given in lab by Aris Henriquez in Right Groin via Subcutaneous. 14:36:01 Access site was Right Femoral Artery. 14:36:11 A wire was inserted via Fem Art (right). 14:36:13 A SHEATH, FR5 TERUMO (10CM) FR 5 was advanced into the Fem Art (right) using the Percutaneo us technique. A JR 4.0 INFINITI CATHETER FR 5 was advanced over a wire. OMNIPAQUE, 350 MG, 150ML 150ML was us ed for 14:36:19 injections. Recorded Pressure: LV, HR=58, Condition=Condition 1 14:36:42 (Left Ventricle) LV 145/10/22 14:37:23 The LV was manually injected with 10 cc's and visualized. OMNIPAQUE, 350 MG, 150ML 150ML us ed. Recorded Pressure: LV, Ao, HR=55, Condition=Condition 1 14:37:52 (Left Ventricle) LV 124/9/22, (Aorta) Ao 112/53/78 14:38:34 HR=55 bpm, MMUT=797/72 mmhg, SpO2=96.0 %, Resp=21 B/min, Pain=0, Miki=10, Abdullahi=2 14:38:37 The RCA was injected and visualized at various angles. OMNIPAQUE, 350 MG, 150ML 150ML used . 14:39:02 Catheter was removed A JL 4.0 INFINITI CATHETER FR 5 was advanced over a wire. OMNIPAQUE, 350 MG, 150ML 150ML was us ed for 14:39:16 injections. Recorded Pressure: Ao, HR=54, Condition=Condition 1 14:39:30 (Aorta) Ao 124/48/77 14:44:14 HR=56 bpm, GAWJ=078/60 mmhg, SpO2=95.0 %, Resp=24 B/min, Pain=0, Miki=10, Abdullahi=2 14:47:40 Catheter was removed 14:48:28 HR=55 bpm, VBKD=657/70 mmhg, SpO2=96.0 %, Resp=20 B/min, Pain=0, Miki=10, Abdullahi=2 A SHEATH, FR6.5 PRELUDE 11CM FR 6.5 was exchanged in the Fem Art (right). This was necessary in order to 14:48:30 accomodate a larger catheter. 14:48:37 1 mg VERSED given in lab by Francisco Jewell, RN via Peripheral IV. A EBU 3.0 Z2 GUIDE CATHETER FR 6 was advanced over a wire. OMNIPAQUE, 350 MG, 150ML 150ML was u sed for 14:49:09 injections. 14:49:16 OMNIPAQUE, 350 MG, 150ML 150ML and 30 AMITA INDEFLATOR added. 14:49:45 A WIRE, BALANCE MIDDLEWEIGHT 190CM 190CM was inserted via Fem Art (right). 14:49:46 5000 units HEPARIN given in lab by Francisco Jewell, RN via Peripheral IV. 14:53:06 Interventional wire has crossed the lesion 14:53:29 HR=57 bpm, XXTB=692/69 mmhg, SpO2=96.0 %, Resp=21 B/min, Pain=0, Miki=10, Abdullahi=2 14:55:39 A WIRE, BALANCE MIDDLEWEIGHT 190CM 190CM was inserted via Fem Art (right). 14:58:31 HR=54 bpm, PWSA=264/69 mmhg, SpO2=96.0 %, Resp=13 B/min, Pain=0, Miki=10, Abdullahi=2 14:59:41 Wire removed 15:03:32 HR=53 bpm, RTKQ=331/68 mmhg, SpO2=97.0 %, Resp=17 B/min, Pain=0, Miki=10, Abdullahi=2 15:04:23 A WIRE, RUNTHROUGH NS FLOPPY .014 180CM 180CM was inserted via Fem Art (right). 15:05:33 Wire removed 15:05:39 Wire removed After removing the current catheter a EBU 4.0 Z2 GUIDE CATHETER FR 6 was advanced over a WIRE, 3MMJ .035 15:05:50 180CM 180CM. 15:06:30 0.5 mg VERSED given in lab by Francisco Jewell, ENR[place] via Peripheral IV. 15:06:47 A WIRE, RUNTHROUGH NS FLOPPY .014 180CM 180CM was inserted via Fem Art (right). 15:08:35 HR=53 bpm, AHPU=204/73 mmhg, SpO2=96.0 %, Resp=13 B/min, Pain=0, Miki=10, Abdullahi=2 A BALLOON, 2.0 X 6MM EUPHORA 6MM was inserted over WIRE, RUNTHROUGH NS FLOPPY .014 180CM 180CM via 15:08:49 the CIRC Prox. 15:09:15 3000 units HEPARIN given in lab by Lakia Do, RN via Peripheral IV. 15:13:36 HR=52 bpm, CIPO=879/75 mmhg, SpO2=97.0 %, Resp=13 B/min, Pain=0, Miki=10, Abdullahi=2 15:14:08 Wire removed 15:14:13 A WIRE, CHOICE EXTRA 182CM 182CM was inserted via Fem Art (right). 15:18:33 HR=50 bpm, GMEI=840/67 mmhg, SpO2=97.0 %, Resp=19 B/min, Pain=0, Miki=10, Abdullahi=2 15:23:36 HR=51 bpm, BQNE=155/72 mmhg, SpO2=99.0 %, Resp=18 B/min, Pain=0, Miki=10, Abdullahi=2 15:23:54 DOC wire attached to CHOICE WIRE A BALLOON, 1.25 X 6MM SPRINTER LEGEND OTW 6MM was inserted over WIRE, DOC EXTENSION 145CM 145CM via 15:24:21 the CIRC Prox. 15:25:23 0.5 mg VERSED given in lab by Francisco Jewell, RN via Peripheral IV. 15:25:49 Wire removed 15:28:35 HR=58 bpm, YBUC=675/74 mmhg, SpO2=93.0 %, Resp=21 B/min, Pain=0, Miki=10, Abdullahi=2 15:32:18 Catheter was removed 15:32:27 An injection in the Fem Art (right) was made through the SHEATH, FR6.5 PRELUDE 11CM FR 6.5. Assessment: Final Case, HR=54 BPM, Rhythm=ELIUD, Chest Pain=0, Edema=None, Color=Normal, Skin = Warm Right Pulses: Jonas Ped=2, Femoral=2 Left Pulses: Jonas Ped=2, Femoral=2 15:33:43 Lower Right Extremities: Color=Normal Lower Left Extremities: Color=Normal Neurological: State=Alert, Ox3, HERBERT Respiration: Resp=18 B/min, SpO2=93 %, O2=2 lpm 15:34:23 HR=58 bpm, GROR=144/96 mmhg, SpO2=96 %, Resp=13 B/min, Pain=0, Miki=10, Abdullahi=2 15:34:39 PERCLOSE, PRO GLIDE CLOSER DEVICE FR 6 placement in the Fem Art (right) 15:35:03 ACT (Normal Range 90-180) = 1533 15:39:22 HR=55 bpm, HEUZ=916/71 mmhg, SpO2=94.0 %, Resp=26 B/min, Pain=0, Miki=10, Abdullahi=2 End Study - Contrast Media Used In Study Contrast Total Opened (mL) Total Used (mL) Total Wasted (mL) Omnipaque 135 135 0 End Study - Maximum Contrast Load Max Contrast Load (mL) 533.3 End Study - Radiation Exposure Fluoro Time (minutes) 21.9 End Study - Sheaths Sheaths Pulled By Sheath Hold Time (min) Aris Henriquez End Study - Patient Disposition Complications Transferred To No Critical Care Bed
[2017-02-26] MEDS ORDERED: LIDOCAINE HCL 1% 50 ML VIAL INFIL PRN (16:00)
[2017-02-26] MEDS ORDERED: ONDANSETRON HCL 4 MG/2 ML VIAL IV PRN (16:00)
[2017-02-26] MEDS ORDERED: ATROPINE SULFATE 1 MG/ML VIAL IV PRN (16:00)
[2017-02-26] MEDS ORDERED: MISC INFORMATION XX ONE (16:00)
[2017-02-26] MEDS ORDERED: MORPHINE SULFATE 4 MG/ML INJ ONE (16:40)
[2017-02-26] MEDS ORDERED: MORPHINE SULFATE 8 MG/ML INJ IV PUSH PRN (16:45)
[2017-02-26] MEDS: MORPHINE SULFATE 8 MG/ML INJ IV PUSH PRN (16:48)
[2017-02-26 19:34] LABS: BLOOD, URINE NEG (NEG); COMMENT (UR) CULT NOT INDICATED; CULTURE IF INDICATED CULT NOT INDICATED; GLUCOSE,URINE NEG (NEG); KETONE, URINE 10 mg/dL (NEG); MUCUS URINE MOD /lpf (OCC); NITRITE,URINE NEG (NEG); PH, URINE 5.5 (5.0-8.5); SQUAMOUS EPITHELIAL CELL URINE <1 /hpf (0-5); URINE COLOR YELLOW (YELLW/STRAW)
--- NOTE | 2017-02-26 20:05 | RADRPT ---
EXAM DATE/TIME: 02/26/2017 18:25 [place] COMPARISON: No previous studies available for comparison. INDICATIONS : Pre-op cardiac surgery. MEDICAL HISTORY : Hypertension. Syncope. Gastrointestinal disorder. Nephrolithiasis. Musculoskeletal disorder. SURGICAL HISTORY : Tonsillectomy. Hernia repair. Bilateral wrist repair. ENCOUNTER: Initial ACUITY: 1 day PAIN SCORE: 7/10 LOCATION: Bilateral neck PEAK SYSTOLIC VELOCITIES (cm/sec): ICA/CCA RATIO: Right: 1.2 Left: 1.5 ICA: Right: 122.6 Left: 120.1 CCA: Right: 100.00 Left: 77.9 ECA: Right: 106.9 Left: 88.3 VERTEBRAL: Right: 94.7 antegrade Left: 59.0 antegrade Elevated flow velocities and ICA/CCA ratios have been found to correlate with increased degrees of vessel stenosis, calculated as percentage of diameter relative to a normal segment of distal ICA/CCA FINDINGS: Antegrade flow is seen in both vertebral arteries. There is mild to moderate atherosclerotic plaquing at the origin of both ICAs without any significant stenosis. CONCLUSION: No evidence for hemodynamically significant stenosis. Willis Reid MD on February 26, 2017 at 20:04 Board Certified Radiologist. This report was verified electronically.
[2017-02-26 21:06] LABS: BLOOD GAS BASE EXCESS -3.4 mmol/L (-2-2); BLOOD GAS CARBOXYHEMOGLOBIN 1.7 % (0-4); BLOOD GAS HCO3 20 mmol/L (22-26); BLOOD GAS O2 HGB SATURATION 94 % (90-100); BLOOD GAS OXYGEN CONTENT 16.4 Vol % (12.0-20.0); BLOOD GAS PCO2 32 mmHg (38-42); BLOOD GAS PO2 80 mmHg (61-120); BLOOD GAS TOTAL HGB 12.4 G/DL (12.0-16.0); CRITICAL VALUE NO; DRAW SITE LT RADIAL; FIO2 21 %; NUMBER OF ARTERIAL PUNCTURES 1; TEMP CORR TO 98.6
[2017-02-26 21:07] LABS: STAT NO
[2017-02-26 22:45] LABS: MRSA PCR NEGATIVE (NEGATIVE); STAPH AUREUS PCR POSITIVE (NEGATIVE)
--- NOTE | 2017-02-26 23:43 | RADRPT ---
EXAM DATE/TIME: 02/26/2017 18:49 [facility] COMPARISON: No previous studies available for comparison. INDICATIONS : Pre-op cardiac surgery. MEDICAL HISTORY : Hypertension. Syncope. Gastrointestinal disorder. Nephrolithiasis. Musculoskeletal disorder. SURGICAL HISTORY : Tonsillectomy. Hernia repair. Bilateral wrist repair. ENCOUNTER: Initial ACUITY: 2 day PAIN SCORE: 10/10 LOCATION: Bilateral legs. TECHNIQUE: Venous ultrasound of the left and right leg was performed from the inguinal ligament to the proximal calf. Real-time, color Doppler and spectral tracing, compression and augmentation techniques were us ed. FINDINGS: RIGHT LEG: There is normal compressibility of the deep venous system from the inguinal region to the proximal ca lf. No echogenic clot is seen in the lumen of the common femoral, femoral, popliteal, and posterior tibial veins. There is a normal response of the venous system to proximal and distal augmentation an d respiration. There is a large well-defined Pack's cyst in the popliteal f trent measuring 5.7 x 4.3 x 1.5 cm. LEFT LEG: There is normal compressibility of the deep venous system from the inguinal region to the proximal ca lf. No echogenic clot is seen in the lumen of the common femoral, femoral, popliteal, and posterior tibial veins. There is a normal response of the venous system to proximal and distal augmentation an d respiration. CONCLUSION: 1. No evidence of DVT. 2. Large well-defined Pack's cyst right popliteal fossa. Nish Nevarez MD on February 26, 2017 at 23:40 Board Certified Radiologist. This report was verified electronically.
--- NOTE | 2017-02-26 23:51 | RADRPT ---
EXAM DATE/TIME: 02/26/2017 19:03 [facility] COMPARISON: No previous studies available for comparison. INDICATIONS : Pre-op cardiac surgery. MEDICAL HISTORY : Hypertension. Syncope. Gastrointestinal disorder. Nephrolithiasis. Musculoskeletal disorder. SURGICAL HISTORY : Tonsillectomy. Hernia repair. Bilateral wrist repair. ENCOUNTER: Initial ACUITY: 2 day PAIN SCORE: 10/10 LOCATION: Bilateral legs. GREATER SAPHENOUS VEIN THIGH: PROXIMAL: Right 6 mm Left 5 mm MID: Right 3 mm Left 4 mm DISTAL: Right 3 mm Left 4 mm CALF: PROXIMAL: Right 3 mm Left 4 mm MID: Right 2 mm Left 2 mm DISTAL: Right 2 mm Left 2 mm FINDINGS: The venous system of the lower extremities are patent by color Doppler imaging. Measurements of the leg veins (in mm) are listed above. CONCLUSION: Venous mapping as above. Nish Nevarez MD on February 26, 2017 at 23:49 Board Certified Radiologist. This report was verified electronically.
[2017-02-27] VITALS (8 sets, daily range): BP systolic 152–198; BP diastolic 72–90; PULSE 57–87; RESP 18–24; TEMP 98–99.1; O2SAT 94–96
[2017-02-27 06:01] LABS: AUTOMATED NEUTROPHIL # 6.7 TH/MM3 (1.8-7.7); BASOPHIL # 0.1 TH/MM3 (0-0.2); BASOPHIL % 0.8 % (0.0-2.0); EOSINOPHIL # 0.2 TH/MM3 (0-0.4); EOSINOPHIL % 1.9 % (0.0-4.0); HEMATOCRIT 39.5 % (39.0-51.0); HEMO FLAGS DIFF FINAL; LYMPH % 13.5 % (9.0-44.0); LYMPHOCYTE # 1.3 TH/MM3 (1.0-4.8); MEAN CELL VOLUME 89.9 FL (80.0-100.0); MEAN CORPUSCULAR HEMOGLOBIN 30.6 PG (27.0-34.0); MEAN CORPUSCULAR HGB CONC 34.1 % (32.0-36.0); NEUT % 70.8 % (16.0-70.0); PLATELET COUNT 145 TH/MM3 (150-450); RED BLOOD COUNT 4.39 MIL/MM3 (4.50-5.90); RED CELL DISTRIBUTION WIDTH 13.7 % (11.6-17.2); WHITE BLOOD COUNT 9.5 TH/MM3 (4.0-11.0)
[2017-02-27 06:25] LABS: ANION GAP 9 MEQ/L (5-15); AST (GOT) 241 U/L (15-37); BICARBONATE 22.1 MEQ/L (21.0-32.0); BLOOD UREA NITROGEN 14 MG/DL (7-18); CHLORIDE 112 MEQ/L (98-107); GLOMERULAR FILTRATION RATE 114 ML/MIN (>89); POTASSIUM 3.8 MEQ/L (3.5-5.1); SODIUM (NA) 143 MEQ/L (136-145)
[2017-02-27 06:30] LABS: ALKALINE PHOSPHATASE 49 U/L (45-117); ALT (GPT) 521 U/L (12-78); CREATINE KINASE 610 U/L (39-308); TOTAL BILIRUBIN ADULT 0.7 MG/DL (0.2-1.0)
[2017-02-27 06:47] LABS: CKMB 4.2 NG/ML (0.5-3.6)
[2017-02-27] MEDS: SODIUM CHLORIDE 0.9% FLUSH 10 ML FLUSH IV FLUSH SCH ×2 (09:00→20:20)
[2017-02-27] MEDS: DOCUSATE SODIUM 50 MG/SENNA 8.6 MG TAB PO SCH ×2 (09:00→20:19)
--- NOTE | 2017-02-27 09:15 | PD.CARD.PN ---
Subjective Subjective Remarks Pt feels well, no complaints. Objective Medications Administered Medications Medications (Trade) Dose Ordered Sig/Esteban Route PRN Reason Start Time Stop Time Status Last Admin Dose Admin Sodium Chloride (NS Flush) 2 ml BID IV FLUSH 02/25/17 21:00 02/26/17 21:00 Senna/Docusate Sodium (Devika-Colace) 1 tab BID PO 02/25/17 21:00 02/26/17 21:00 Morphine Sulfate (Morphine Inj) 4 mg Q3H PRN IV PUSH PAIN SCALE 6-10 02/26/17 16:45 02/26/17 16:48 Vital Signs / I&O Vital Signs Date Time Temp Pulse Resp B/P Pulse Ox O2 Delivery O2 Flow Rate FiO2 02/27/17 07:00 94 Room Air 02/27/17 07:00 59 02/27/17 04:00 86 02/27/17 04:00 95 Room Air 02/27/17 04:00 98.5 87 22 172/73 95 02/27/17 00:00 60 02/27/17 00:00 98.8 60 18 175/72 95 02/27/17 00:00 95 Room Air 02/26/17 20:00 98.4 69 20 160/76 95 02/26/17 20:00 95 Room Air 02/26/17 20:00 68 02/26/17 18:00 67 02/26/17 17:00 54 02/26/17 16:58 18 02/26/17 16:00 55 02/26/17 16:00 97.5 55 20 180/90 97 02/26/17 14:00 60 02/26/17 13:00 59 02/26/17 12:00 53 02/26/17 11:00 66 02/26/17 11:00 97.9 61 20 175/88 100 02/26/17 10:00 55 I/O 02/26/17 02/26/17 02/26/17 02/27/17 02/27/17 02/27/17 07:00 15:00 23:00 07:00 15:00 23:00 Intake Total 785 ml 1440 ml Output Total 175 ml 800 ml Balance 610 ml 640 ml Intake Oral 240 ml 440 ml IV Total 545 ml 1000 ml Output Urine Total 175 ml 800 ml # Voids 1 # Bowel Movements 2 Physical Exam GENERAL: This is a well-nourished, well-developed patient, in no apparent distress. CARDIOVASCULAR: Regular rate and rhythm without murmurs, gallops, or rubs. RESPIRATORY: Clear to auscultation. Breath sounds equal bilaterally. No wheezes , rales, or rhonchi. GASTROINTESTINAL: Abdomen soft, non-tender, nondistended. Normal active bowel sounds MUSCULOSKELETAL: Extremities without clubbing, cyanosis, or edema. NEURO: Alert & Oriented x4 to person, place, time, situation. Moves all ext x4 Laboratory Laboratory Tests Test 02/26/17 02/26/17 02/26/17 02/26/17 13:05 17:34 18:40 19:44 Activated Partial 40.9 SEC Thromboplast Time Nasal Screen MRSA (PCR) NEGATIVE Staphylococcus aureus POSITIVE (PCR)(LAB) Urine Color YELLOW Urine Turbidity CLEAR Urine pH 5.5 Urine Specific [place] GREATER THAN 1.050 Urine Protein 30 mg/dL Urine Glucose (UA) NEG mg/dL Urine Ketones 10 mg/dL Urine Occult Blood NEG Urine Nitrite NEG Urine Bilirubin NEG Urine Urobilinogen LESS THAN 2.0 MG/DL Urine Leukocyte Esterase NEG Urine RBC 1 /hpf Urine WBC 1 /hpf Urine Squamous Epithelial <1 /hpf Cells Urine Mucus MOD /lpf Microscopic Urinalysis Comment CULT NOT INDICATED Blood Type A POSITIVE Antibody Screen NEGATIVE Blood Bank Comment Test 02/26/17 02/27/17 21:00 05:00 Blood Gas Puncture Site LT RADIAL Blood Gas Patient Temperature 98.6 Blood Gas HCO3 20 mmol/L Blood Gas Base Excess -3.4 mmol/L Blood Gas Oxygen Saturation 94 % Arterial Blood pH 7.42 Arterial Blood Partial 32 mmHg Pressure CO2 Arterial Blood Partial 80 mmHg Pressure O2 Arterial Blood Oxygen Content 16.4 Vol % Arterial Blood 1.7 % Carboxyhemoglobin Arterial Blood Methemoglobin 1.0 % Blood Gas Hemoglobin 12.4 G/DL Blood Gas Inspired Oxygen 21 % White Blood Count 9.5 TH/MM3 Red Blood Count 4.39 MIL/MM3 Hemoglobin 13.5 GM/DL Hematocrit 39.5 % Mean Corpuscular Volume 89.9 FL Mean Corpuscular Hemoglobin 30.6 PG Mean Corpuscular Hemoglobin 34.1 % Concent Red Cell Distribution Width 13.7 % Platelet Count 145 TH/MM3 Mean Platelet Volume 9.5 FL Neutrophils (%) (Auto) 70.8 % Lymphocytes (%) (Auto) 13.5 % Monocytes (%) (Auto) 13.0 % Eosinophils (%) (Auto) 1.9 % Basophils (%) (Auto) 0.8 % Neutrophils # (Auto) 6.7 TH/MM3 Lymphocytes # (Auto) 1.3 TH/MM3 Monocytes # (Auto) 1.2 TH/MM3 Eosinophils # (Auto) 0.2 TH/MM3 Basophils # (Auto) 0.1 TH/MM3 CBC Comment DIFF FINAL Differential Comment Sodium Level 143 MEQ/L Potassium Level 3.8 MEQ/L Chloride Level 112 MEQ/L Carbon Dioxide Level 22.1 MEQ/L Anion Gap 9 MEQ/L Blood Urea Nitrogen 14 MG/DL Creatinine 0.69 MG/DL Estimat Glomerular Filtration 114 ML/MIN Rate Random Glucose 95 MG/DL Calcium Level 8.3 MG/DL Total Bilirubin 0.7 MG/DL Aspartate Amino Transf 241 U/L (AST/SGOT) Alanine Aminotransferase 521 U/L (ALT/SGPT) Alkaline Phosphatase 49 U/L Total Creatine Kinase 610 U/L Creatine Kinase MB 4.2 NG/ML Creatine Kinase MB % 0.7 % Total Protein 6.1 GM/DL Albumin 3.3 GM/DL Imaging Last Impressions Lower Extremity Ultrasound 02/26/17 0000 Signed Impressions: Service Date/Time: Sunday, February 26, 2017 18:49 - CONCLUSION: 1. No evidence of DVT. 2. Large well-defined Pack's cyst right popliteal fossa. Nish Nevarez MD Carotid Artery Ultrasound 02/26/17 0000 Signed Impressions: Service Date/Time: Sunday, February 26, 2017 18:25 - CONCLUSION: No evidence for hemodynamically significant stenosis. Willis Reid MD Chest X-Ray 02/25/17 1411 Signed Impressions: Service Date/Time: Saturday, February 25, 2017 14:11 - CONCLUSION: No acute cardiopulmonary disease. Willis Reid MD Liver Ultrasound 02/25/17 0000 Signed Impressions: Service Date/Time: Saturday, February 25, 2017 22:28 - CONCLUSION: 1. Increased echotexture of the liver parenchyma which is inhomogeneous and there is borderline hepatomegaly. This can be seen with hepatocellular disease or hepatic steatosis. 2. Mild gallbladder wall thickening is noted. No stones are identified. Yves Zepeda MD Assessment and Plan Problem List: (1) Cardiac arrest Assessment and Plan: s/p AED defibrillation (2) CAD (coronary artery disease) Assessment and Plan: multi ves dz; on asa/bb, holding statin for now due to LFT elevation Assessment and Plan multi-ves dz by cath, for CABG. Christian Shrestha MD Feb 27, 2017 09:15
--- NOTE | 2017-02-27 09:16 | HHI.PR ---
Subjective Remarks Follow-up coronary artery disease, V. fib arrest. Patient had cardiac catheterization yesterday, which showed 80% blockage of the LAD and 90% blockage of the circumflex artery. He reports ongoing chest discomfort, unchanged compared to yesterday. Shortness of breath is secondary to pain with taking a deep breath. Objective Vitals Vital Signs Date Time Temp Pulse Resp B/P Pulse Ox O2 Delivery O2 Flow Rate FiO2 02/27/17 07:00 94 Room Air 02/27/17 07:00 59 02/27/17 04:00 86 02/27/17 04:00 95 Room Air 02/27/17 04:00 98.5 87 22 172/73 95 02/27/17 00:00 60 02/27/17 00:00 98.8 60 18 175/72 95 02/27/17 00:00 95 Room Air 02/26/17 20:00 98.4 69 20 160/76 95 02/26/17 20:00 95 Room Air 02/26/17 20:00 68 02/26/17 18:00 67 02/26/17 17:00 54 02/26/17 16:58 18 02/26/17 16:00 55 02/26/17 16:00 97.5 55 20 180/90 97 02/26/17 14:00 60 02/26/17 13:00 59 02/26/17 12:00 53 02/26/17 11:00 66 02/26/17 11:00 97.9 61 20 175/88 100 02/26/17 10:00 55 I/O 02/26/17 02/26/17 02/26/17 02/27/17 02/27/17 02/27/17 07:00 15:00 23:00 07:00 15:00 23:00 Intake Total 785 ml 1440 ml Output Total 175 ml 800 ml Balance 610 ml 640 ml Intake Oral 240 ml 440 ml IV Total 545 ml 1000 ml Output Urine Total 175 ml 800 ml # Voids 1 # Bowel Movements 2 Result Diagram: 02/27/17 0500 02/27/17 0500 Imaging Last Impressions Lower Extremity Ultrasound 02/26/17 0000 Signed Impressions: Service Date/Time: Sunday, February 26, 2017 18:49 - CONCLUSION: 1. No evidence of DVT. 2. Large well-defined Pack's cyst right popliteal fossa. Nish J. Siragusa, MD Carotid Artery Ultrasound 02/26/17 0000 Signed Impressions: Service Date/Time: Sunday, February 26, 2017 18:25 - CONCLUSION: No evidence for hemodynamically significant stenosis. Willis Reid MD Chest X-Ray 02/25/17 1411 Signed Impressions: Service Date/Time: Saturday, February 25, 2017 14:11 - CONCLUSION: No acute cardiopulmonary disease. Willis Reid MD Liver Ultrasound 02/25/17 0000 Signed Impressions: Service Date/Time: Saturday, February 25, 2017 22:28 - CONCLUSION: 1. Increased echotexture of the liver parenchyma which is inhomogeneous and there is borderline hepatomegaly. This can be seen with hepatocellular disease or hepatic steatosis. 2. Mild gallbladder wall thickening is noted. No stones are identified. Yves Zepeda MD Objective Remarks General: No acute distress. Sitting up in a chair. Heart: Regular rate and rhythm. No murmur. Lungs: Clear to auscultation bilaterally. No wheezes, rales, or rhonchi. Breathing is nonlabored. Abdomen: Soft, nontender, nondistended. Extremities: No lower extremity edema. Psych: Alert and oriented. Procedures None Urinary Catheter: No Vascular Central Line Catheter: No A/P Problem List: (1) Cardiac arrest ICD Code: I46.9 Status: Resolved (2) Chest pain ICD Code: R07.9 Status: Acute (3) Creatinine elevation ICD Code: R79.89 Status: Acute (4) Shock liver ICD Code: K72.00 Status: Acute (5) Leukocytosis ICD Code: D72.829 Status: Acute (6) Elevated LFTs ICD Code: R79.89 Status: Acute (7) Acute kidney injury ICD Code: N17.9 Status: Acute (8) Elevated troponin I level ICD Code: R74.8 Status: Acute Assessment and Plan 1. Cardiac arrest: [place] An AED was applied and determined a shockable rhythm. One shock was delivered. He continues to report chest pain with movement, deep breaths, coughing. Appreciate cardiology recommendations. Serial cardiac enzymes show increased troponin. Cardiac catheterization shows 80% blockage of the LAD and 90% of the circumflex. Cardiothoracic surgery consulted for CABG. Heparin drip discontinued by cardiology. 2. Elevated LFTs: Likely secondary to shock liver. LFTs are trending down. Liver ultrasound noted. Hepatitis panel pending. 3. Acute kidney injury: BUN/creatinine improving. Continue gentle IV fluid hydration. 4. Leukocytosis: Resolved. Likely stress reaction. 5. DVT prophylaxis: Will need anticoagulation postoperatively. Problem Qualifiers (1) Chest pain: Qualified Code: R07.89 - Other chest pain Greg Knowles MD Feb 27, 2017 09:16
--- NOTE | 2017-02-27 10:05 | MA ---
cc: JOSSELYNYSDNEYELMER DATE: 02/26/2017 DATE OF 1950 PROCEDURE PERFORMED 1. Left heart catheterization. 2. Selective right and left coronary angiography. 3. Left ventriculogram. INDICATIONS Syncope outside hospital ventricular fibrillation arrest. DESCRIPTION OF PROCEDURE Consent signed. The patient was taken to the cardiac manager labor delivery in a fasting state. The right groin was prepped and draped in sterile fashion. Using 1% lidocaine for local anesthesia and micropuncture kit a 6-[place] sheath was inserted into the right common femoral artery. Selective right common femoral artery angiography was performed to confirm position of the sheath. Then selective right and left coronary angiography was performed with a JR-4 and JL- 4 diagnostic catheters. Angiography was taken in multiple views. The JR-4 catheter was introduced over a wire to the ventricle followed by pressure recordings, ventriculogram and pullback. The patient had a lesion in the left circumflex artery which was calcified, however, having some ALONSO II flow. On discussing it with the patient before coming to the catheterization lab he wanted to try a stent first so we tried to do a percutaneous intervention. For this we engaged the left main with an EBU 3.5 6Fr. We did use heparin for IV anticoagulation. We tried to wire the circumflex several times, however, this proximal segment lesion of the left circumflex was significantly calcified with collaterals coming from the septals of the LAD that looked like a chronic total occlusion. Different wires were used and techniques to cross the TESTER ELECTRONIC SCALE, however, we were not successful. Thus procedure was aborted. The patient tolerated procedure well. Blood loss less than 40 mL. Total contrast 150 cc. The right groin access site was closed with a Perclose device. RESULTS LEFT VENTRICLE The left ventricle pressure was 124/9 with an LVEDP of 22. The aortic pressure was 124/40 with a mean of 77. Left ventriculogram revealed a symmetric carmen ventricle with an estimated ejection fraction of 50%. ANGIOGRAPHIC RESULTS 1. Right coronary artery is a nondominant vessel. It is diffusely diseased. 2. Left main. The left main is patent with nonobstructive coronary artery disease to LAD. The LAD is a transapical vessel giving off two diagonals and a prominent first septal. The LAD has a significant 90% lesion in its proximal segment. 3. Left circumflex artery. The left circumflex artery is diffusely diseased. It has significant 90% lesion in its proximal segment. This seemed to be calcified and chronic. Beside the lesion the vessel is diffusely diseased however, getting collaterals from the septals. There are two OM branches which are of significant size and patent. 4. The ramus. The ramus is a tortuous vessel. It is patent with nonobstructive coronary artery disease. CONCLUSION 1. 2 Vessel CAD. The patient has a severe stenosis in the proximal left main and TESTER ELECTRONIC SCALE of the left circumflex artery. 2. Elevated LVEDP. RECOMMENDATIONS The patient has been consulted to CT surgery for two-vessel bypass surgery. Currently he is stable, hemodynamically stable, chest pain free. He will be admitted to [facility] ICU pending open heart surgery tomorrow. MD GERTRUDIS Funes/KK /3:49 PM /9:53 AM [facility]
[2017-02-27] MEDS: ASPIRIN EC 81 MG TABEC PO SCH (10:54)
[2017-02-27] MEDS: METOPROLOL TARTRATE 25 MG TAB PO SCH ×2 (10:54→20:19)
--- NOTE | 2017-02-27 13:20 | PD.CAR.PN ---
CVT Progress Note Subjective/Hospital Course: sts data discussed with pt RISK SCORES About the STS Risk Calculator Procedure: CAB Only Risk of Mortality: 0.504% Morbidity or Mortality: 6.109% Long Length of Stay: 2.203% Short Length of Stay: 67.144% Permanent Stroke: 0.372% Prolonged Ventilation: 4.005% DSW Infection: 0.301% Renal Failure: 0.52% Reoperation: 3.373% Objective: Vital Signs Date Time Temp Pulse Resp B/P Pulse Ox O2 Delivery O2 Flow Rate FiO2 02/27/17 11:13 94 Room Air 02/27/17 11:13 73 02/27/17 11:00 99.1 76 24 198/90 94 02/27/17 07:00 94 Room Air 02/27/17 07:00 99.0 59 18 184/74 94 02/27/17 07:00 59 02/27/17 04:00 86 02/27/17 04:00 95 Room Air 02/27/17 04:00 98.5 87 22 172/73 95 02/27/17 00:00 60 02/27/17 00:00 98.8 60 18 175/72 95 02/27/17 00:00 95 Room Air 02/26/17 20:00 98.4 69 20 160/76 95 02/26/17 20:00 95 Room Air 02/26/17 20:00 68 02/26/17 18:00 67 02/26/17 17:00 54 02/26/17 16:58 18 02/26/17 16:00 55 02/26/17 16:00 97.5 55 20 180/90 97 02/26/17 14:00 60 Labs: Laboratory Tests Test 02/27/17 05:00 White Blood Count 9.5 TH/MM3 (4.0-11.0) Red Blood Count 4.39 MIL/MM3 (4.50-5.90) Hemoglobin 13.5 GM/DL (13.0-17.0) Hematocrit 39.5 % (39.0-51.0) Mean Corpuscular Volume 89.9 FL (80.0-100.0) Mean Corpuscular Hemoglobin 30.6 PG (27.0-34.0) Mean Corpuscular Hemoglobin 34.1 % Concent (32.0-36.0) Red Cell Distribution Width 13.7 % (11.6-17.2) Platelet Count 145 TH/MM3 (150-450) Mean Platelet Volume 9.5 FL (7.0-11.0) Neutrophils (%) (Auto) 70.8 % (16.0-70.0) Lymphocytes (%) (Auto) 13.5 % (9.0-44.0) Monocytes (%) (Auto) 13.0 % (0.0-8.0) Eosinophils (%) (Auto) 1.9 % (0.0-4.0) Basophils (%) (Auto) 0.8 % (0.0-2.0) Neutrophils # (Auto) 6.7 TH/MM3 (1.8-7.7) Lymphocytes # (Auto) 1.3 TH/MM3 (1.0-4.8) Monocytes # (Auto) 1.2 TH/MM3 (0-0.9) Eosinophils # (Auto) 0.2 TH/MM3 (0-0.4) Basophils # (Auto) 0.1 TH/MM3 (0-0.2) CBC Comment DIFF FINAL Differential Comment Sodium Level 143 MEQ/L (136-145) Potassium Level 3.8 MEQ/L (3.5-5.1) Chloride Level 112 MEQ/L (98-107) Carbon Dioxide Level 22.1 MEQ/L (21.0-32.0) Anion Gap 9 MEQ/L (5-15) Blood Urea Nitrogen 14 MG/DL (7-18) Creatinine 0.69 MG/DL (0.60-1.30) Estimat Glomerular Filtration 114 ML/MIN Rate (>89) Random Glucose 95 MG/DL (74-106) Calcium Level 8.3 MG/DL (8.5-10.1) Total Bilirubin 0.7 MG/DL (0.2-1.0) Aspartate Amino Transf 241 U/L (15-37) (AST/SGOT) Alanine Aminotransferase 521 U/L (12-78) (ALT/SGPT) Alkaline Phosphatase 49 U/L (45-117) Total Creatine Kinase 610 U/L (39-308) Creatine Kinase MB 4.2 NG/ML (0.5-3.6) Creatine Kinase MB % 0.7 % (0.0-4.0) Total Protein 6.1 GM/DL (6.4-8.2) Albumin 3.3 GM/DL (3.4-5.0) Result Diagram: 02/27/17 05002/27/17499 (1) Cardiac arrest Plan: s/p AED defibrillation (2) CAD (coronary artery disease) Plan: multi ves dz; on asa/bb, holding statin for now due to LFT elevation Milana Brush Feb 27, 2017 13:20
--- NOTE | 2017-02-27 14:39 | MB ---
cc: EVELYN BARRON DATE OF CONSULTATION: 02/27/2017 DATE OF : 1950 HISTORY OF PRESENT ILLNESS A 66-year-old male visiting from [place] with a history of some hypertension who complained of a little bit of pain the morning of admission on the . He took Aleve, went to a local beach to watch his son surf. While he was standing n the water watching his son he felt a little bit dizzy like he was going to go down. He started walking to shore and apparently he collapsed and had a syncopal episode per report. He did collapse and the beach patrol began CPR, placed an AED on him and it indicated shock. One shock was delivered and he had spontaneous return of circulation. He was subsequently brought to [facility] for further treatment. The patient complained afterwards of chest discomfort related to the CPR. On admission he had some elevated troponins, no acute ST changes. The patient underwent a cardiac cath yesterday and was found to have 80% proximal LAD and 90% circumflex. We were consulted to evaluate for coronary artery bypass grafting x2, ejection fraction of 60%. PAST MEDICAL HISTORY 1. Hypertension. 2. Chronic back pain. PAST SURGICAL HISTORY 1. Bilateral wrist repair due to some fractures from participating in martial arts. 2. Right inguinal hernia repair. ALLERGIES PENICILLIN. MEDICATIONS Home medications include: 1. Vitamin-E. 2. Vitamin-B complex. 3. Ginkgo biloba, 4. Vitamin-D3. 5. Tumeric. 6. Oxycodone p.r.n. for chronic back pain. FAMILY HISTORY Mother at his . Father at 52 from alcoholism. SOCIAL HISTORY The patient , two children. Smoked for 10 years one pack, now smoking vapor cigarettes. No alcohol. 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 No illicit drugs. REVIEW OF SYSTEMS GENERAL: In general no night sweats, fever, heat or cold intolerance. SKIN: No psoriasis, itching or hives. HEENT: No blurred vision or hearing loss. RESPIRATORY: No cough or shortness of breath. CARDIOVASCULAR: As above in the HPI. GASTROINTESTINAL: No diarrhea or vomiting. GENITOURINARY: No burning, frequency, urgency. RADIO INTERFERENCE TROUBLE SHOOTER: No history of TIA, CVA, seizure disorder. ENDOCRINE: No history of diabetes and/or hypothyroidism. PHYSICAL EXAMINATION VITAL SIGNS: Blood pressure 180/70, heart rate 76. GENERAL: Patient is awake and alert, in no acute distress. HEENT: Head is normocephalic, atraumatic. Pupils equal and reactive. Oral mucosa pink and moist. NECK: Supple. No JVD. HEART: Heart sounds S1, S2, regular rate and rhythm. No audible rubs, murmurs or gallops. LUNGS: Clear to auscultation. No wheezes, rales or rhonchi. ABDOMEN: Soft. He does have some tenderness across his chest from the CPR. ABDOMEN: Nontender. No hepatosplenomegaly. EXTREMITIES: No cyanosis, clubbing or edema. Good distal pulses. No focal deficits. Moves all extremities 5/5. LABORATORY Hemoglobin 13, hematocrit 39, white cell count 9.5, platelet count 145. Sodium 143, potassium 3.8, BUN 14, creatinine 0.69, was 1.3 on admission. Hemoglobin A1c is pending. AST 855, ALT 946. The AST is down to 241 and the ALT is down to 521. CPK is 610. Troponin 1.70. INR 0.9. Urinalysis is unremarkable. MRSA screen PCR negative. Hepatitis C, B and A are all negative. Blood gas on arrival showed pH 742, CO2 32, PO2 80. Heme negative stools. IMAGING Carotid ultrasound: No significant hemodynamic stenosis. Lower extremity ultrasound with adequate vein mapping and no evidence of DVT. Chest x-ray: No acute process. Ultrasound of the liver: Some increased echotexture of the liver parenchyma which is inhomogeneous and borderline hepatomegaly, can be seen with hepatocellular disease and hepatic steatosis. Mild gallbladder thickening with no stones identified. IMPRESSION This is a very pleasant 66-year-old male visiting from [place] with a syncopal episode resulting in a ventricular fibrillation arrest which was successfully shocked with an AED with return of spontaneous circulation, elevated troponins, nonspecific ST changes. He underwent a cardiac cath by Dr. Gaona with two-vessel disease, EF of 60%. The cardiac films will be evaluated by Dr. Evelyn Barron and evaluation for coronary artery bypass graft x2. Will repeat and follow his LFTs. His hepatitis screen is negative. No statin at this time because of his elevated LFTs. Continue aspirin and beta zulma. Further planning as per Dr. Evelyn Barron as far as timing of surgery. Dictated by: BLANCO Amezcua Evelyn MD ANJANA Perez /1:28 PM /2:42 PM
[2017-02-27] MEDS: MORPHINE SULFATE 8 MG/ML INJ IV PUSH PRN ×2 (16:19→20:27)
[2017-02-27] MEDS ORDERED: CHLORHEXIDINE GLUCONATE 4% SOLN 120 ML BTL TOPICAL SCH (16:45)
[2017-02-27] MEDS ORDERED: PAPAVERINE INJ 60 MG, NITROGLYCERIN INJ 100 MCG, DILTIAZEM INJ 100 MG in SODIUM CHLORID... IRRIGATION SCH (16:45)
[2017-02-27] MEDS ORDERED: INSULIN REGULAR (IV INFUSION) 100 UNITS in SODIUM CHLORIDE 0.9% INJ 100 ML IV SCH (16:45)
[2017-02-27] MEDS ORDERED: VANCOMYCIN INJ 1,000 MG in SODIUM CHLOR 0.9% 250 ML INJ 250 ML IV SCH (16:45)
[2017-02-27] MEDS ORDERED: METOPROLOL TARTRATE 25 MG TAB PO SCH (16:45)
[2017-02-27] MEDS ORDERED: VANCOMYCIN INJ 1,000 MG in SODIUM CHLORIDE 0.9% IRR BTL 1,000 ML IRRIGATION SCH (16:45)
[2017-02-27] MEDS ORDERED: SODIUM CHLORIDE 0.9% FLUSH 10 ML FLUSH IV FLUSH PRN (16:45)
[2017-02-27 16:57] LABS: HEMOGLOBIN A1a 1.1 %; HEMOGLOBIN A1b 1.7 %; HEMOGLOBIN Ao 85.4 %; HEMOGLOBIN LA1C 1.8 %; HEMOGLOBIN P3 3.9 %
[2017-02-27 22:05] LABS: HEMOGLOBIN A1a 0.9 %; HEMOGLOBIN A1b 1.7 %; HEMOGLOBIN Ao 85.3 %; HEMOGLOBIN LA1C 1.9 %; HEMOGLOBIN P3 4.1 %
[2017-02-28] VITALS (16 sets, daily range): BP systolic 119–161; BP diastolic 58–91; PULSE 55–88; RESP 16–20; TEMP 98.2–98.9; O2SAT 93–98
[2017-02-28] MEDS: MORPHINE SULFATE 8 MG/ML INJ IV PUSH PRN ×2 (02:17→09:08)
[2017-02-28 04:43] LABS: HEMATOCRIT 40.8 % (39.0-51.0); MEAN CELL VOLUME 90.8 FL (80.0-100.0); MEAN CORPUSCULAR HEMOGLOBIN 30.3 PG (27.0-34.0); MEAN CORPUSCULAR HGB CONC 33.4 % (32.0-36.0); PLATELET COUNT 162 TH/MM3 (150-450); RED CELL DISTRIBUTION WIDTH 13.7 % (11.6-17.2); REVIEW FLAG FINAL; WHITE BLOOD COUNT 11.3 TH/MM3 (4.0-11.0)
--- NOTE | 2017-02-28 08:56 | HHI.PR ---
Subjective Remarks Follow up CAD. Patient still reporting significant chest discomfort with movement, coughing, deep breaths. Denies dyspnea, other than difficulty with deep breaths due to pain. No nausea/vomiting. Objective Vitals Vital Signs Date Time Temp Pulse Resp B/P Pulse Ox O2 Delivery O2 Flow Rate FiO2 02/28/17 03:00 55 02/28/17 03:00 98.2 55 18 119/58 95 02/28/17 03:00 95 Room Air 02/27/17 23:00 57 02/27/17 23:00 94 Room Air 02/27/17 23:00 98.0 67 20 152/75 95 02/27/17 19:00 98.6 76 20 177/77 95 02/27/17 19:00 80 02/27/17 19:00 95 Room Air 02/27/17 16:24 14 02/27/17 15:00 96 Room Air 02/27/17 15:00 98.8 87 20 163/74 96 02/27/17 15:00 58 02/27/17 11:13 94 Room Air 02/27/17 11:13 73 02/27/17 11:00 99.1 76 24 198/90 94 I/O 02/27/17 02/27/17 02/27/17 02/28/17 02/28/17 02/28/17 07:00 15:00 23:00 07:00 15:00 23:00 Intake Total 1440 ml 480 ml 480 ml Output Total 800 ml 700 ml Balance 640 ml 480 ml -220 ml Intake Oral 440 ml 480 ml 480 ml IV Total 1000 ml Output Urine Total 800 ml 700 ml # Voids 4 1 # Bowel Movements 2 3 1 Result Diagram: 02/28/17 0424 02/27/17 0500 Imaging Last Impressions Lower Extremity Ultrasound 02/26/17 0000 Signed Impressions: Service Date/Time: Sunday, February 26, 2017 18:49 - CONCLUSION: 1. No evidence of DVT. 2. Large well-defined Pack's cyst right popliteal fossa. Nish Nevarez MD Carotid Artery Ultrasound 02/26/17 0000 Signed Impressions: Service Date/Time: Sunday, February 26, 2017 18:25 - CONCLUSION: No evidence for hemodynamically significant stenosis. Willis Reid MD Chest X-Ray 02/25/17 1411 Signed Impressions: Service Date/Time: Saturday, February 25, 2017 14:11 - CONCLUSION: No acute cardiopulmonary disease. Willis Reid MD Liver Ultrasound 02/25/17 0000 Signed Impressions: Service Date/Time: Saturday, February 25, 2017 22:28 - CONCLUSION: 1. Increased echotexture of the liver parenchyma which is inhomogeneous and there is borderline hepatomegaly. This can be seen with hepatocellular disease or hepatic steatosis. 2. Mild gallbladder wall thickening is noted. No stones are identified. Yves Zepeda MD Objective Remarks General: No acute distress. Sitting up in a chair. Heart: Regular rate and rhythm. No murmur. Lungs: Clear to auscultation bilaterally. No wheezes, rales, or rhonchi. Breathing is nonlabored. Abdomen: Soft, nontender, nondistended. Extremities: No lower extremity edema. Psych: Alert and oriented. Procedures None Urinary Catheter: No Vascular Central Line Catheter: No A/P Problem List: (1) Cardiac arrest ICD Code: I46.9 Status: Resolved (2) Chest pain ICD Code: R07.9 Status: Acute (3) Creatinine elevation ICD Code: R79.89 Status: Acute (4) Shock liver ICD Code: K72.00 Status: Acute (5) Leukocytosis ICD Code: D72.829 Status: Acute (6) Elevated LFTs ICD Code: R79.89 Status: Acute (7) Acute kidney injury ICD Code: N17.9 Status: Acute (8) Elevated troponin I level ICD Code: R74.8 Status: Acute Assessment and Plan 1. Cardiac arrest: [place] AED was applied and determined a shockable rhythm. One shock was delivered. He continues to report chest pain with movement, deep breaths, coughing. Appreciate cardiology recommendations. Serial cardiac enzymes show increased troponin. Cardiac catheterization shows 80% blockage of the LAD and 90% of the circumflex. Cardiothoracic surgery consulted for CABG, planning surgery tomorrow. Heparin drip discontinued by cardiology. 2. Elevated LFTs: Likely secondary to shock liver. LFTs are trending down. Liver ultrasound noted. Hepatitis panel is negative. 3. Acute kidney injury: Improved. 4. Leukocytosis: Resolved. Likely stress reaction. 5. DVT prophylaxis: Will need anticoagulation postoperatively. Problem Qualifiers (1) Chest pain: Qualified Code: R07.89 - Other chest pain Greg Knowles MD Feb 28, 2017 08:56
[2017-02-28] MEDS ORDERED: oxyCODONE/ACETAMINOPHEN 5 MG/325 MG TAB PO PRN (09:00)
[2017-02-28] MEDS: DOCUSATE SODIUM 50 MG/SENNA 8.6 MG TAB PO SCH ×2 (09:00→21:23)
[2017-02-28] MEDS: SODIUM CHLORIDE 0.9% FLUSH 10 ML FLUSH IV FLUSH SCH ×2 (09:08→21:23)
[2017-02-28] MEDS: METOPROLOL TARTRATE 25 MG TAB PO SCH ×2 (09:08→21:23)
[2017-02-28] MEDS: ASPIRIN EC 81 MG TABEC PO SCH (09:08)
[2017-02-28] MEDS ORDERED: MORPHINE SULFATE 4 MG/ML INJ IV PUSH PRN (09:47)
--- NOTE | 2017-02-28 12:04 | PD.CARD.PN ---
Subjective Subjective Remarks Pt feels well, still pain from cpr Administered Medications Medications (Trade) Dose Ordered Sig/Esteban Route PRN Reason Start Time Stop Time Status Last Admin Dose Admin Senna/Docusate Sodium (Devika-Colace) 1 tab BID PO 02/25/17 21:00 02/26/17 21:00 Metoprolol Tartrate (Lopressor) 25 mg Q12HR PO 02/27/17 10:00 02/28/17 09:08 Aspirin (Ecotrin Ec) 81 mg DAILY PO 02/27/17 10:00 02/28/17 09:08 Sodium Chloride (NS Flush) 2 ml BID IV FLUSH 02/27/17 21:00 02/28/17 09:08 Objective Medications Administered Medications Medications (Trade) Dose Ordered Sig/Esteban Route PRN Reason Start Time Stop Time Status Last Admin Dose Admin Senna/Docusate Sodium (Devika-Colace) 1 tab BID PO 02/25/17 21:00 02/26/17 21:00 Metoprolol Tartrate (Lopressor) 25 mg Q12HR PO 02/27/17 10:00 02/28/17 09:08 Aspirin (Ecotrin Ec) 81 mg DAILY PO 02/27/17 10:00 02/28/17 09:08 Sodium Chloride (NS Flush) 2 ml BID IV FLUSH 02/27/17 21:00 02/28/17 09:08 Vital Signs / I&O Vital Signs Date Time Temp Pulse Resp B/P Pulse Ox O2 Delivery O2 Flow Rate FiO2 02/28/17 08:00 98 Nasal Cannula 3.00 02/28/17 07:00 94 Nasal Cannula 2.00 02/28/17 07:00 68 02/28/17 07:00 98.7 68 18 152/68 94 02/28/17 03:00 55 02/28/17 03:00 98.2 55 18 119/58 95 02/28/17 03:00 95 Room Air 02/27/17 23:00 57 02/27/17 23:00 94 Room Air 02/27/17 23:00 98.0 67 20 152/75 95 02/27/17 19:00 98.6 76 20 177/77 95 02/27/17 19:00 80 02/27/17 19:00 95 Room Air 02/27/17 16:24 14 02/27/17 15:00 96 Room Air 02/27/17 15:00 98.8 87 20 163/74 96 02/27/17 15:00 58 I/O 02/27/17 02/27/17 02/27/17 02/28/17 02/28/17 02/28/17 07:00 15:00 23:00 07:00 15:00 23:00 Intake Total 1440 ml 480 ml 480 ml Output Total 800 ml 700 ml Balance 640 ml 480 ml -220 ml Intake Oral 440 ml 480 ml 480 ml IV Total 1000 ml Output Urine Total 800 ml 700 ml # Voids 4 1 # Bowel Movements 2 3 1 Physical Exam GENERAL: This is a well-nourished, well-developed patient, in no apparent distress. CARDIOVASCULAR: Regular rate and rhythm without murmurs, gallops, or rubs. RESPIRATORY: Clear to auscultation. Breath sounds equal bilaterally. No wheezes , rales, or rhonchi. GASTROINTESTINAL: Abdomen soft, non-tender, nondistended. Normal active bowel sounds MUSCULOSKELETAL: Extremities without clubbing, cyanosis, or edema. NEURO: Alert & Oriented x4 to person, place, time, situation. Moves all ext x4 Laboratory Laboratory Tests Test 02/28/17 04:24 White Blood Count 11.3 TH/MM3 Red Blood Count 4.50 MIL/MM3 Hemoglobin 13.6 GM/DL Hematocrit 40.8 % Mean Corpuscular Volume 90.8 FL Mean Corpuscular Hemoglobin 30.3 PG Mean Corpuscular Hemoglobin 33.4 % Concent Red Cell Distribution Width 13.7 % Platelet Count 162 TH/MM3 Mean Platelet Volume 8.8 FL Blood Type A POSITIVE Antibody Screen NEGATIVE Crossmatch Leukocyte-Reduced Red Blood Cells Blood Bank Comment Imaging Last Impressions Lower Extremity Ultrasound 02/26/17 0000 Signed Impressions: Service Date/Time: Sunday, February 26, 2017 18:49 - CONCLUSION: 1. No evidence of DVT. 2. Large well-defined Pack's cyst right popliteal fossa. Nish Nevarez MD Carotid Artery Ultrasound 02/26/17 0000 Signed Impressions: Service Date/Time: Sunday, February 26, 2017 18:25 - CONCLUSION: No evidence for hemodynamically significant stenosis. Willis Reid MD Chest X-Ray 02/25/17 1411 Signed Impressions: Service Date/Time: Saturday, February 25, 2017 14:11 - CONCLUSION: No acute cardiopulmonary disease. Willis Reid MD Liver Ultrasound 02/25/17 0000 Signed Impressions: Service Date/Time: Saturday, February 25, 2017 22:28 - CONCLUSION: 1. Increased echotexture of the liver parenchyma which is inhomogeneous and there is borderline hepatomegaly. This can be seen with hepatocellular disease or hepatic steatosis. 2. Mild gallbladder wall thickening is noted. No stones are identified. Yves Zepeda MD Assessment and Plan Problem List: (1) Cardiac arrest (2) CAD (coronary artery disease) Assessment and Plan multi-ves dz by cath, for CABG. Christian Shrestha MD Feb 28, 2017 12:04
[2017-02-28] MEDS: oxyCODONE/ACETAMINOPHEN 10 MG/325 MG TAB PO PRN ×2 (13:18→21:34)
--- NOTE | 2017-02-28 16:04 | PD.CAR.PN ---
CVT Progress Note Subjective/Hospital Course: 66/ male visiting from [place], s/p vfib arrest while at [place], successfully resuscitated and ROSC after AED defib, underwent cardia cath by Dr Gaona : EF 60% prox LAD 80%, CX 90% eval for coronary artery bypass grafting, ECG q waves inferior leads PMH: HTN, chronic back pain , prior tobacco abuse, now uses vapor cigs, recovering alcoholic 02/28 pt denies chest pain last pm scheduled for surgery 03/01 carotid US : ok elevated LFT's ? post shock liver/ neg Hep panel / enzymes improving / no statin with elevated LFT Objective: GENERAL: c/o of chest soreness SKIN: Warm and dry. HEAD: Normocephalic. EYES: No scleral icterus. No injection or drainage. NECK: Supple, trachea midline. No JVD or lymphadenopathy. CARDIOVASCULAR: Regular rate and rhythm without murmurs, gallops, or rubs. RESPIRATORY: Breath sounds equal bilaterally. No accessory muscle use. GASTROINTESTINAL: Abdomen soft, non-tender, nondistended. MUSCULOSKELETAL: No cyanosis, or edema. BACK: Nontender without obvious deformity. No CVA tenderness. Vital Signs Date Time Temp Pulse Resp B/P Pulse Ox O2 Delivery O2 Flow Rate FiO2 02/28/17 15:00 98 Nasal Cannula 1.50 02/28/17 15:00 98.6 75 20 159/91 98 02/28/17 15:00 68 02/28/17 14:08 77 02/28/17 11:00 98.9 88 20 161/70 93 02/28/17 11:00 93 Nasal Cannula 2.00 02/28/17 11:00 68 02/28/17 08:00 98 Nasal Cannula 3.00 02/28/17 07:00 94 Nasal Cannula 2.00 02/28/17 07:00 68 02/28/17 07:00 98.7 68 18 152/68 94 02/28/17 03:00 55 02/28/17 03:00 98.2 55 18 119/58 95 02/28/17 03:00 95 Room Air 02/27/17 23:00 57 02/27/17 23:00 94 Room Air 02/27/17 23:00 98.0 67 20 152/75 95 02/27/17 19:00 98.6 76 20 177/77 95 02/27/17 19:00 80 7/17/17 19:00 95 Room Air 02/27/17 16:24 14 Labs: Laboratory Tests Test 02/28/17 04:24 White Blood Count 11.3 TH/MM3 (4.0-11.0) Red Blood Count 4.50 MIL/MM3 (4.50-5.90) Hemoglobin 13.6 GM/DL (13.0-17.0) Hematocrit 40.8 % (39.0-51.0) Mean Corpuscular Volume 90.8 FL (80.0-100.0) Mean Corpuscular Hemoglobin 30.3 PG (27.0-34.0) Mean Corpuscular Hemoglobin 33.4 % Concent (32.0-36.0) Red Cell Distribution Width 13.7 % (11.6-17.2) Platelet Count 162 TH/MM3 (150-450) Mean Platelet Volume 8.8 FL (7.0-11.0) Blood Type A POSITIVE Antibody Screen NEGATIVE Crossmatch Leukocyte-Reduced Red Blood Cells Blood Bank Comment Result Diagram: 02/28/17 0424 02/27/17 0500 Telemetry: NSR (1) Cardiac arrest (2) CAD (coronary artery disease) Plan: on ASA, BB no statin 2/2 elevated LFT for surgery in am (3) Elevated LFTs Plan: indices improving / hep panel pending Milana Brush Feb 28, 2017 16:04
[2017-02-28 18:42] LABS: INTERNATIONAL NORMALIZED RATIO 0.9 RATIO; PROTHROMBIN TIME - PATIENT 10.3 SEC (9.8-11.6)
[2017-02-28 19:01] LABS: ANION GAP 7 MEQ/L (5-15); AST (GOT) 79 U/L (15-37); BICARBONATE 25.4 MEQ/L (21.0-32.0); BLOOD UREA NITROGEN 18 MG/DL (7-18); CHLORIDE 108 MEQ/L (98-107); GLOMERULAR FILTRATION RATE 96 ML/MIN (>89); POTASSIUM 3.7 MEQ/L (3.5-5.1); SODIUM (NA) 140 MEQ/L (136-145)
[2017-02-28 19:02] LABS: ALT (GPT) 301 U/L (12-78)
[2017-02-28 19:04] LABS: ALKALINE PHOSPHATASE 52 U/L (45-117); TOTAL BILIRUBIN ADULT 0.6 MG/DL (0.2-1.0)
[2017-03-01] VITALS (23 sets, daily range): BP systolic 97–150; BP diastolic 44–79; PULSE 53–77; RESP 16–18; TEMP 98.1–98.7; O2SAT 93–96
[2017-03-01] MEDS: oxyCODONE/ACETAMINOPHEN 10 MG/325 MG TAB PO PRN (04:28)
[2017-03-01] MEDS ORDERED: NEOSTIGMINE METHYLSULFATE 10 MG/10 ML VIAL IV PUSH ONE (05:00)
[2017-03-01] MEDS ORDERED: VECURONIUM BROMIDE 10 MG VIAL IV ONE (05:00)
[2017-03-01] MEDS ORDERED: EPINEPHrine HCL (1:1000) 1 MG/ML VIAL IV ONE (05:00)
[2017-03-01] MEDS ORDERED: HEPARIN SODIUM - SQ 10,000 UNITS/ML VIAL SQ ONE (05:00)
[2017-03-01] MEDS ORDERED: MAGNESIUM SULFATE 1000 MG/2 ML VIAL (PED) IV ONE (05:00)
[2017-03-01] MEDS ORDERED: AMINOCAPROIC ACID INJ 250 MG/ML 20 ML VIAL IV ONE (05:00)
[2017-03-01] MEDS ORDERED: PROTAMINE SULFATE 250 MG/25 ML VIAL IV ONE (05:00)
[2017-03-01] MEDS ORDERED: CALCIUM CHLORIDE 10% SOLN 1 GRAM/10 ML SYR IV ONE (05:00)
[2017-03-01] MEDS ORDERED: PHENYLEPHRINE HCL 10 MG/ML VIAL IV ONE (05:00)
[2017-03-01] MEDS ORDERED: GLYCOPYRROLATE 0.2 MG/ML VIAL IV ONE (05:00)
[2017-03-01] MEDS ORDERED: NITROGLYCERIN-DEXTROSE INJ 250 ML IV ONE (05:00)
[2017-03-01] MEDS ORDERED: FUROSEMIDE 100 MG/10 ML VIAL IV PUSH ONE (05:00)
[2017-03-01] MEDS: SODIUM CHLORIDE 0.9% FLUSH 10 ML FLUSH IV FLUSH SCH ×3 (08:45→21:35)
[2017-03-01] MEDS: METOPROLOL TARTRATE 25 MG TAB PO SCH (08:45)
[2017-03-01] MEDS: DOCUSATE SODIUM 50 MG/SENNA 8.6 MG TAB PO SCH ×2 (08:45→21:35)
[2017-03-01] MEDS: ASPIRIN EC 81 MG TABEC PO SCH (08:45)
--- NOTE | 2017-03-01 09:36 | RSPPFT ---
DATE OF PROCEDURE: 02/28/17 COMMENTS: Spirometry with FVC of 1.4 predicted 4.3, FEV1 of 0.5 predicted 3.2, FEV1/FVC ratio 41% predicted 74%. IMPRESSION: On the basis of the above, patient has a very severe obstructive lung defect. Post-bronchodilator values have not been measured.
--- NOTE | 2017-03-01 11:10 | PD.CAR.PN ---
CVT Progress Note Subjective/Hospital Course: 66/ male visiting from [place], s/p vfib arrest while at [place], successfully resuscitated and ROSC after AED defib, underwent cardia cath by Dr Gaona : EF 60% prox LAD 80%, CX 90% eval for coronary artery bypass grafting, ECG q waves inferior leads PMH: HTN, chronic back pain , prior tobacco abuse, now uses vapor cigs, recovering alcoholic 02/28 pt denies chest pain last pm scheduled for surgery 03/01 carotid US : ok elevated LFT's ? post shock liver/ neg Hep panel / enzymes improving / no statin with elevated LFT 03/01 LFT's improving , for surgery today no statin 2/2 elevated LFT no chest pain during the night Objective: Vital Signs Date Time Temp Pulse Resp B/P Pulse Ox O2 Delivery O2 Flow Rate FiO2 03/01/17 10:07 55 03/01/17 09:09 67 03/01/17 08:03 55 03/01/17 07:47 96 Room Air 03/01/17 07:30 98.4 60 18 150/76 96 03/01/17 07:03 53 03/01/17 06:16 18 03/01/17 06:14 60 03/01/17 05:00 60 03/01/17 04:00 58 03/01/17 03:30 98.4 69 16 144/69 94 03/01/17 03:27 94 Room Air 03/01/17 03:00 57 03/01/17 02:00 55 03/01/17 01:00 54 03/01/17 00:00 75 02/28/17 23:51 98.5 63 16 143/73 93 02/28/17 23:48 93 Room Air 02/28/17 23:00 73 02/28/17 22:00 70 02/28/17 21:00 75 02/28/17 20:00 70 02/28/17 19:30 96 Room Air 02/28/17 19:30 98.9 61 16 148/62 96 02/28/17 19:00 73 02/28/17 18:01 63 02/28/17 17:17 76 02/28/17 16:07 63 02/28/17 15:00 98 Nasal Cannula 1.50 02/28/17 15:00 98.6 75 20 159/91 98 02/28/17 15:00 68 02/28/17 14:08 77 Result Diagram: 02/28/17 0424 02/28/17 1830 Telemetry: NSR (1) Cardiac arrest (2) CAD (coronary artery disease) Plan: on ASA, BB no statin 2/2 elevated LFT for surgery today (3) Elevated LFTs Plan: indices improving / hep panel neg Milana Brush Mar 01, 2017 11:10
--- NOTE | 2017-03-01 11:40 | HHI.PR ---
Subjective Remarks Follow-up CAD, cardiac arrest. Patient still having musculoskeletal chest discomfort. Going for CABG this afternoon. Denies dyspnea, cough. Objective Vitals Vital Signs Date Time Temp Pulse Resp B/P Pulse Ox O2 Delivery O2 Flow Rate FiO2 03/01/17 11:38 96 Room Air 03/01/17 11:30 98.2 62 18 135/79 96 03/01/17 11:00 62 03/01/17 10:07 55 03/01/17 09:09 67 03/01/17 08:03 55 03/01/17 07:47 96 Room Air 03/01/17 07:30 98.4 60 18 150/76 96 03/01/17 07:03 53 03/01/17 06:16 18 03/01/17 06:14 60 03/01/17 05:00 60 03/01/17 04:00 58 03/01/17 03:30 98.4 69 16 144/69 94 03/01/17 03:27 94 Room Air 03/01/17 03:00 57 03/01/17 02:00 55 03/01/17 01:00 54 03/01/17 00:00 75 02/28/17 23:51 98.5 63 16 143/73 93 02/28/17 23:48 93 Room Air 02/28/17 23:00 73 02/28/17 22:00 70 02/28/17 21:00 75 02/28/17 20:00 70 02/28/17 19:30 96 Room Air 02/28/17 19:30 98.9 61 16 148/62 96 02/28/17 19:00 73 02/28/17 18:01 63 02/28/17 17:17 76 02/28/17 16:07 63 02/28/17 15:00 98 Nasal Cannula 1.50 02/28/17 15:00 98.6 75 20 159/91 98 02/28/17 15:00 68 02/28/17 14:08 77 I/O 02/28/17 02/28/17 02/28/17 03/01/17 03/01/17 03/01/17 07:00 15:00 23:00 07:00 15:00 23:00 Intake Total 480 ml 680 ml 100 ml Output Total 700 ml 100 ml Balance -220 ml 680 ml 0 ml Intake Oral 480 ml 680 ml 100 ml Output Urine Total 700 ml 100 ml # Voids 1 6 # Bowel Movements 1 1 Result Diagram: 02/28/17 0424 02/28/17 1830 Imaging Last Impressions Lower Extremity Ultrasound 02/26/17 0000 Signed Impressions: Service Date/Time: Sunday, February 26, 2017 18:49 - CONCLUSION: 1. No evidence of DVT. 2. Large well-defined Pack's cyst right popliteal fossa. Nish Nevarez MD Carotid Artery Ultrasound 02/26/17 0000 Signed Impressions: Service Date/Time: Sunday, February 26, 2017 18:25 - CONCLUSION: No evidence for hemodynamically significant stenosis. Willis Reid MD Chest X-Ray 02/25/17 1411 Signed Impressions: Service Date/Time: Saturday, February 25, 2017 14:11 - CONCLUSION: No acute cardiopulmonary disease. Willis Reid MD Liver Ultrasound 02/25/17 0000 Signed Impressions: Service Date/Time: Saturday, February 25, 2017 22:28 - CONCLUSION: 1. Increased echotexture of the liver parenchyma which is inhomogeneous and there is borderline hepatomegaly. This can be seen with hepatocellular disease or hepatic steatosis. 2. Mild gallbladder wall thickening is noted. No stones are identified. Yves Zepeda MD Objective Remarks General: No acute distress. Sitting up in a chair. Heart: Regular rate and rhythm. No murmur. Chest wall: Tender to palpation bilaterally. Lungs: Clear to auscultation bilaterally. No wheezes, rales, or rhonchi. Breathing is nonlabored. Abdomen: Soft, nontender, nondistended. Extremities: No lower extremity edema. Psych: Alert and oriented. Procedures None Urinary Catheter: No Vascular Central Line Catheter: No A/P Problem List: (1) Cardiac arrest ICD Code: I46.9 Status: Resolved (2) Chest pain ICD Code: R07.9 Status: Acute (3) Creatinine elevation ICD Code: R79.89 Status: Acute (4) Shock liver ICD Code: K72.00 Status: Acute (5) Leukocytosis ICD Code: D72.829 Status: Acute (6) Elevated LFTs ICD Code: R79.89 Status: Acute (7) Acute kidney injury ICD Code: N17.9 Status: Acute (8) Elevated troponin I level ICD Code: R74.8 Status: Acute Assessment and Plan 1. Cardiac arrest[place]ED was applied and determined a shockable rhythm. One shock was delivered. He continues to report chest pain with movement, deep breaths, coughing. Appreciate cardiology recommendations. Serial cardiac enzymes show increased troponin. Cardiac catheterization shows 80% blockage of the LAD and 90% of the circumflex. CABG today. Heparin drip discontinued by cardiology. 2. Elevated LFTs: Likely secondary to shock liver. LFTs are trending down. Liver ultrasound noted. Hepatitis panel is negative. 3. Acute kidney injury: Improved. 4. Leukocytosis: Resolved. Likely stress reaction. 5. DVT prophylaxis: Will need anticoagulation postoperatively. Problem Qualifiers (1) Chest pain: Qualified Code: R07.89 - Other chest pain Greg Knowles MD Mar 01, 2017 11:40
[2017-03-01] MEDS ORDERED: CARDIOPLEGIC IRR 1,000 ML ONE (12:33)
[2017-03-01] MEDS ORDERED: POTASSIUM CHLORIDE 40 MEQ/20 ML VIAL ONE (12:34)
[2017-03-01] MEDS ORDERED: POTASSIUM CHLORIDE 20 MEQ/10 ML VIAL ONE (12:34)
[2017-03-01] MEDS ORDERED: MANNITOL INJ 50 ML ONE (12:35)
[2017-03-01] MEDS ORDERED: ALBUMIN HUMAN 25% 12.5 GM/50 ML BAGP IV ONE (12:35)
[2017-03-01] MEDS ORDERED: HEPARIN SODIUM - IV 10,000 UNITS/10 ML VIAL ONE (12:36)
[2017-03-01] MEDS ORDERED: HEPARIN SODIUM - SQ 10,000 UNITS/ML VIAL ONE ×2 (12:36→13:02)
[2017-03-01] MEDS ORDERED: methylPREDNISolone SOD SUCC 125 MG/2 ML VIAL ONE (13:02)
[2017-03-01] MEDS ORDERED: VANCOMYCIN HCL 1000 MG VIAL ONE ×2 (13:02→13:35)
[2017-03-01] MEDS ORDERED: LACTATED RINGER'S 1000 ML INJ 500 ML IV PRN (17:47)
[2017-03-01] MEDS ORDERED: DEXTROSE 50% IN WATER 50 ML VIAL(D50) IV PUSH PRN (18:00)
[2017-03-01] MEDS ORDERED: ACETAMINOPHEN 650 MG SUPP RECTAL PRN (18:00)
[2017-03-01] MEDS ORDERED: Post-op Orders (for Pharmacy) MISC OTHER ONE (18:00)
[2017-03-01] MEDS ORDERED: INSULIN REGULAR (IV INFUSION) 100 UNITS in SODIUM CHLORIDE 0.9% INJ 99 ML IV SCH (18:00)
[2017-03-01] MEDS ORDERED: ONDANSETRON HCL 4 MG/2 ML VIAL IV PUSH PRN (18:00)
[2017-03-01] MEDS ORDERED: SODIUM CHLORIDE 0.9% FLUSH 10 ML FLUSH IV FLUSH PRN (18:00)
[2017-03-01] MEDS ORDERED: RESP: ALBUTEROL 2.5 MG/IPRATROPIUM 0.5 MG NEB (PRN) NEB (18:00)
[2017-03-01] MEDS ORDERED: CALCIUM CHLORIDE 10% 1 GRAM/10 ML VIAL IV PRN (18:00)
[2017-03-01] MEDS ORDERED: RESP: RACEPINEPHRINE 2.25% 0.5 ML NEB NEB PRN (18:00)
[2017-03-01] MEDS ORDERED: MAGNESIUM SULFATE INJ 2 GM in SODIUM CHLORIDE 0.9% INJ 100 ML IV PRN ×4 (18:00)
[2017-03-01] MEDS ORDERED: ACETAMINOPHEN 325 MG TAB PO PRN (18:00)
[2017-03-01] MEDS ORDERED: EPINEPHrine (1:1000) INJ 4 MG in DEXTROSE 5% IN WATER INJ 246 ML IV SCH ×2 (18:00)
[2017-03-01] MEDS ORDERED: hydrALAZINE HCL 20 MG/ML VIAL IV PRN (18:00)
[2017-03-01] MEDS ORDERED: METOPROLOL TARTRATE 5 MG/5 ML VIAL IV PUSH PRN (18:00)
[2017-03-01] MEDS ORDERED: CLEVIDIPINE INJ 50 ML IV SCH (18:00)
[2017-03-01] MEDS ORDERED: CALCIUM CHLORIDE INJ 1 GM in SODIUM CHLORIDE 0.9% INJ 100 ML IV PRN (18:00)
[2017-03-01] MEDS ORDERED: POTASSIUM CHLOR 20 MEQ PREMIX 100 ML IV PRN ×2 (18:00)
[2017-03-01] MEDS ORDERED: POTASSIUM CHLORIDE 20 MEQ CONTROLLED RELEASE TAB PO PRN ×2 (18:00)
--- NOTE | 2017-03-01 18:02 | PD.OP ---
cc: Aris Henriquez MD; Evelyn Barron MD Operative Report Date of Surgery: Mar 01, 2017 Preoperative Diagnosis: (1) Cardiac arrest (2) CAD (coronary artery disease) (3) NSTEMI (non-ST elevated myocardial infarction) Postoperative Diagnosis: same Procedure: CABG x 3 LEYVA to LAD - good SVG to OM1 - good SVG to PDA - good EVH Anesthesia: Dr. Chavarria Surgeon: Evelyn Barron [employer]ulic [employer] Mechanic(s): Jeremías Sanford Operation and Findings: The risks, benefits, complications, treatment options, and expected outcomes were discussed with the patient. The possibilities of reaction to medication, pulmonary aspiration, perforation of viscus, bleeding, recurrent infection, the need for additional procedures, failure to diagnose a condition, and creating a complication requiring transfusion or operation were discussed with the patient. The patient concurred with the proposed plan, giving informed consent. The site of surgery properly noted/marked. The patient was taken to Operating Room, identified as Zaid Reyes and the procedure verified as CABG, EVH. A Time Out was held and the above information confirmed. Standard monitoring lines and Hendricks catheter were placed. General anesthesia was induced. The patient was prepped and draped in a sterile fashion. A median sternotomy was performed and electrocautery was used to obtain hemostasis. The left internal mammary artery was procured as a pedicle from the 7th rib to the 1st rib in the usual manner. Simultaneously left greater saphenous vein was procured from the left leg using a minimally invasive endoscopic technique. The vein was prepared for anastomosis and the leg wound was irrigated and closed in 2 layers. The pericardium was opened and a pericardial sling was created using interrupted 0 silk sutures. The patient was heparinized for cardiopulmonary bypass and the distal mammary pedicle was instrumented for anastomosis. The heart was instrumented for cardiopulmonary bypass in the usual manner. Antegrade blood cardioplegia was employed. The patient was placed on cardiopulmonary bypass. An aortic cross-clamp was applied and the heart was arrested using cold blood cardioplegia. Antegrade cardioplegia was administered after he each anastomosis. After adequate arrest, the distal right coronary circulation was investigated and the PDA was opened with a [place]am blade and found to be a 1.5 millimeter good target. Saphenous vein was approximated to the RCA artery using a running 7 0 Prolene suture. The graft was measured for length and orientation and the proximal anastomosis was constructed to the ascending aorta using a running 5 0 Prolene suture after creating an aortotomy with a 5 millimeter punch. The 1st circumflex marginal artery was then opened with a [place]am blade and found to be a 1.5 millimeter good target. The OM1 artery was intramyocardial. Saphenous vein was approximated to the OM1 artery using a running 7 0 Prolene suture. The graft was measured for length and orientation and was suspended from the pericardium. The distal LAD was opened with a [place]am blade and found to be a 1.5 millimeter good target. The left internal mammary artery was approximated to the LAD using a running 7 0 Prolene suture. The pedicle was attached to the epicardium using interrupted 5 0 silk suture. The patient was systemically rewarmed and received a hotshot dose of warm blood cardioplegia. The aorta was vented and the proximal anastomosis to the OM1 graft was accomplished using a running 5 0 Prolene suture after creating an aortotomy was a 5 millimeter punch. The cross-clamp was removed and all proximal and distal anastomoses were examined for hemostasis. The patient was weaned from cardiopulmonary bypass. Protamine was given. There was no adverse reaction. Decannulation was carried out without incident. Wound was checked for hemostasis which was obtained using electrocautery. A 36 [place] mediastinal and 32 [place] left pleural chest tubes were placed and secured to the skin with 0 silk suture. The sternum was closed with stainless steel wire. The fascia was closed with 1. PDS. The subcutaneous tissue was closed using a running 2-0 Vicryl suture. The skin was closed with 4-0 Monocryl. Sterile dressings were placed. At the end of the operation, all sponge, instruments, and needle counts were correct. The patient was transferred to the CVICU in stable condition. Findings: good distal targets, edema and soft tissue contusion of the anterior chest wall related to chest compressions XC: 56 min CPB: 62 min Drains: mediastinal x 1 pleural x 1 Complications: none Disposition: to CVICU in stable condition Evelyn Barron MD Mar 01, 2017 18:02
[2017-03-01] MEDS ORDERED: fentaNYL CITRATE 1000 MCG/20 ML VIAL ONE (18:29)
[2017-03-01] MEDS ORDERED: MIDAZOLAM HCL 5 MG/5 ML VIAL ONE (18:29)
[2017-03-01] MEDS ORDERED: DEXMEDETOMIDINE HCL 200 MCG/2 ML VIAL ONE (18:44)
[2017-03-01] MEDS: POTASSIUM CHLOR 20 MEQ PREMIX 100 ML IV PRN ×3 (19:15→23:10)
[2017-03-01] MEDS: ACETAMINOPHEN 1000 MG/100 ML VIAL IV SCH (19:20)
--- NOTE | 2017-03-01 19:29 | RADRPT ---
EXAM DATE/TIME: 03/01/2017 18:22 [facility] COMPARISON: CHEST SINGLE AP, February 25, 2017, 14:11. INDICATIONS : Post op open heart surgery. MEDICAL HISTORY : Hypertension. Syncope. Gastrointestinal disorder. Nephrolithiasis. Musculoskeletal disorder. SURGICAL HISTORY : Tonsillectomy. Hernia repair. Bilateral wrist repair. ENCOUNTER: Subsequent ACUITY: 1 day PAIN SCORE: Non-responsive. LOCATION: Bilateral chest FINDINGS: Endotracheal tube tip at the inferior margin of the clavicles. Enteric tube courses to at least the l evel of the EEG junction, not clearly seen distal to this point. Mediastinal tube suspected. Left-bi ed chest tube is present. I do not see a pneumothorax. Left lower lobe consolidation. Right jugular l ine tip overlies the SVC. CONCLUSION: Lines and tubes as above. Left lower lobe airspace disease the Yves Zepeda MD on March 01, 2017 at 19:27 Board Certified Radiologist. This report was verified electronically.
[2017-03-01] MEDS ORDERED: DEXMEDETOMIDINE IV SCH (20:15)
[2017-03-01] MEDS ORDERED: SODIUM CHLOR 0.9% IV SCH (20:15)
[2017-03-01] MEDS: ATORVASTATIN 40 MG TAB PO SCH (21:34)
[2017-03-01] MEDS: METOCLOPRAMIDE HCL 10 MG/2 ML VIAL IV PUSH SCH (21:34)
[2017-03-01] MEDS: AMIODARONE 200 MG TAB PO SCH (21:34)
[2017-03-01] MEDS: RESP: ALBUTEROL 2.5 MG/IPRATROPIUM 0.5 MG NEB (SCH) NEB (22:15)
[2017-03-01] MEDS: oxyCODONE/ACETAMINOPHEN 5 MG/325 MG TAB PO PRN (23:44)
[2017-03-02] VITALS (12 sets, daily range): BP systolic 108–147; BP diastolic 54–76; PULSE 57–89; RESP 18–20; TEMP 98.2–99.5; O2SAT 91–100
[2017-03-02] MEDS: ACETAMINOPHEN 1000 MG/100 ML VIAL IV SCH ×3 (00:45→13:35)
[2017-03-02] MEDS: VANCOMYCIN INJ 1,000 MG in SODIUM CHLOR 0.9% 250 ML INJ 250 ML IV SCH ×2 (02:11→13:35)
[2017-03-02] MEDS: RESP: ALBUTEROL 2.5 MG/IPRATROPIUM 0.5 MG NEB (SCH) NEB ×3 (03:23→19:52)
[2017-03-02] MEDS: oxyCODONE/ACETAMINOPHEN 5 MG/325 MG TAB PO PRN ×5 (04:42→21:39)
[2017-03-02 05:07] LABS: HEMATOCRIT 32.8 % (39.0-51.0); MEAN CELL VOLUME 89.3 FL (80.0-100.0); MEAN CORPUSCULAR HEMOGLOBIN 30.5 PG (27.0-34.0); MEAN CORPUSCULAR HGB CONC 34.1 % (32.0-36.0); PLATELET COUNT 115 TH/MM3 (150-450); RED BLOOD COUNT 3.67 MIL/MM3 (4.50-5.90); RED CELL DISTRIBUTION WIDTH 13.2 % (11.6-17.2); REVIEW FLAG FINAL; WHITE BLOOD COUNT 13.3 TH/MM3 (4.0-11.0)
--- NOTE | 2017-03-02 05:10 | RADRPT ---
EXAM DATE/TIME: 03/02/2017 04:07 [facility] COMPARISON: CHEST SINGLE AP, March 01, 2017, 18:22. INDICATIONS : Post CABG. MEDICAL HISTORY : Hypertension. SURGICAL HISTORY : CABG. Hernia repair. ENCOUNTER: Subsequent ACUITY: 2 days PAIN SCORE: Non-responsive. LOCATION: Bilateral chest FINDINGS: The ET tube and NG tube have been removed. The left chest tube remains in place. There is no pneumoth orax. The lungs are grossly clear. The heart size is stable. The bony structures are stable. CONCLUSION: Left chest tube in place with no pneumothorax. The lungs are grossly clear. Nish Nevarez MD on March 02, 2017 at 5:08 Board Certified Radiologist. This report was verified electronically.
[2017-03-02 05:59] LABS: MAGNESIUM 2.3 MG/DL (1.5-2.5); POTASSIUM 4.3 MEQ/L (3.5-5.1)
[2017-03-02] MEDS: METOCLOPRAMIDE HCL 10 MG/2 ML VIAL IV PUSH SCH (06:08)
[2017-03-02] MEDS: AMIODARONE 200 MG TAB PO SCH ×3 (06:09→21:39)
[2017-03-02] MEDS: PANTOPRAZOLE SOD 40 MG DELAYED RELEASE TAB PO SCH (06:09)
--- NOTE | 2017-03-02 08:33 | HHI.PR ---
Subjective Remarks Follow up CAD, cardiac arrest. S/P CABG x 3 vessels yesterday. Reporting chest pain from surgery. No dyspnea at this time. Denies nausea/vomiting. Objective Vitals Vital Signs Date Time Temp Pulse Resp B/P Pulse Ox O2 Delivery O2 Flow Rate FiO2 03/02/17 07:00 68 03/02/17 06:40 18 03/02/17 06:40 18 03/02/17 05:45 18 03/02/17 03:23 95 Simple Mask 10.00 03/02/17 03:00 94 Simple Mask 10.00 03/02/17 03:00 98.2 57 20 108/56 94 111/54 03/01/17 23:00 98.1 74 18 97/44 94 103/53 03/01/17 23:00 94 Simple Mask 10.00 03/01/17 22:15 95 Simple Mask 10.00 03/01/17 19:30 93 Mask 10 03/01/17 19:10 95 70 03/01/17 19:00 94 Mechanical Ventilator 70 03/01/17 19:00 98.7 77 18 115/69 94 137/61 03/01/17 18:45 70 03/01/17 18:45 60 16 104/58 93 121/59 03/01/17 18:45 96 Mechanical Ventilator 70 03/01/17 13:08 69 03/01/17 12:00 65 03/01/17 11:38 96 Room Air 03/01/17 11:30 98.2 62 18 135/79 96 03/01/17 11:00 62 03/01/17 10:07 55 03/01/17 09:09 67 I/O 03/01/17 03/01/17 03/01/17 03/02/17 03/02/17 03/02/17 07:00 15:00 23:00 07:00 15:00 23:00 Intake Total 100 ml 1644 ml Output Total 100 ml 1006 ml 1269 ml Balance 0 ml -1006 ml 375 ml Intake Oral 100 ml 300 ml IV Total 1344 ml Output Urine Total 100 ml 900 ml 875 ml Chest Tube Drainage Total 106 ml 394 ml # Bowel Movements 0 Result Diagram: 03/02/17 0420 03/02/17 042 Imaging Last Impressions Chest X-Ray 03/02/17 0500 Signed Impressions: Service Date/Time: February 04:07 - CONCLUSION: Left chest tube in place with no pneumothorax. The lungs are grossly clear. Nish Nevarez MD Lower Extremity Ultrasound 02/26/17 0000 Signed Impressions: Service Date/Time: Sunday, February 26, 2017 18:49 - CONCLUSION: 1. No evidence of DVT. 2. Large well-defined Pack's cyst right popliteal fossa. Nish Nevarez MD Carotid Artery Ultrasound 02/26/17 0000 Signed Impressions: Service Date/Time: Sunday, February 26, 2017 18:25 - CONCLUSION: No evidence for hemodynamically significant stenosis. Willis Reid MD Liver Ultrasound 02/25/17 0000 Signed Impressions: Service Date/Time: Saturday, February 25, 2017 22:28 - CONCLUSION: 1. Increased echotexture of the liver parenchyma which is inhomogeneous and there is borderline hepatomegaly. This can be seen with hepatocellular disease or hepatic steatosis. 2. Mild gallbladder wall thickening is noted. No stones are identified. Yves Zepeda MD Objective Remarks General: No acute distress. Sitting up in a chair. Heart: Regular rate and rhythm. No murmur. Chest wall: Tender to palpation bilaterally. Lungs: Clear to auscultation bilaterally. No wheezes, rales, or rhonchi. Breathing is nonlabored. Chest tube in place. Abdomen: Soft, nontender, nondistended. Extremities: No lower extremity edema. Psych: Alert and oriented. Procedures None Urinary Catheter: No Vascular Central Line Catheter: No A/P Problem List: (1) Cardiac arrest ICD Code: I46.9 Status: Resolved (2) Chest pain ICD Code: R07.9 Status: Acute (3) Creatinine elevation ICD Code: R79.89 Status: Acute (4) Shock liver ICD Code: K72.00 Status: Acute (5) Leukocytosis ICD Code: D72.829 Status: Acute (6) Elevated LFTs ICD Code: R79.89 Status: Acute (7) Acute kidney injury ICD Code: N17.9 Status: Acute (8) Elevated troponin I level ICD Code: R74.8 Status: Acute Assessment and Plan 1. Cardiac arrest: [place]ED was applied and determined a shockable rhythm. One shock was delivered. He continues to report chest pain with movement, deep breaths, coughing. Appreciate cardiology recommendations. Serial cardiac enzymes show increased troponin. Cardiac catheterization shows 80% blockage of the LAD and 90% of the circumflex. S/P CABG x 3 vessels. Postoperative management per cardiovascular surgery. 2. Elevated LFTs: Likely secondary to shock liver. LFTs are trending down. Liver ultrasound noted. Hepatitis panel is negative. 3. Acute kidney injury: Improved. 4. Leukocytosis: Likely stress reaction. No other signs of infection at this time. Afebrile. Monitor labs. Continue incentive spirometer. 5. DVT prophylaxis: Per CV surgery. Problem Qualifiers (1) Chest pain: Qualified Code: R07.89 - Other chest pain Greg Knowles MD Mar 02, 2017 08:33
[2017-03-02] MEDS: DOCUSATE SODIUM 100 MG CAP PO SCH ×2 (09:30→21:39)
[2017-03-02] MEDS ORDERED: GLUCAGON 1 MG/ML VIAL OTHER PRN (09:30)
[2017-03-02] MEDS ORDERED: DEXTROSE 50% IN WATER 50 ML VIAL(D50) IV PRN (09:30)
[2017-03-02] MEDS ORDERED: BISACODYL 10 MG SUPP RECTAL PRN (09:30)
[2017-03-02] MEDS ORDERED: SOD PHOSPHATE/SOD BIPHOSPHATE (ADULT) ENEMA 133ML RECTAL PRN (09:30)
[2017-03-02] MEDS ORDERED: PILL SPLITTER OTHER PRN (09:45)
[2017-03-02] MEDS: INSULIN ASPART SUPPLEMENTAL SCALE SQ SCH ×5 (10:00→21:50)
[2017-03-02] MEDS: KETOROLAC TROMETHAMINE 30 MG/ML (IVP) VIAL IV PUSH PRN ×2 (10:02→17:49)
[2017-03-02] MEDS: SODIUM CHLORIDE 0.9% FLUSH 10 ML FLUSH IV FLUSH SCH ×2 (10:09→21:00)
[2017-03-02] MEDS: METOPROLOL TARTRATE 25 MG TAB PO SCH ×2 (10:09→21:39)
[2017-03-02] MEDS: ASPIRIN 81 MG CHEW TAB PO SCH (10:09)
[2017-03-02] MEDS: MAGNESIUM HYDROXIDE SUSP 30 ML CUP PO SCH (10:09)
[2017-03-02] MEDS: METOCLOPRAMIDE HCL 10 MG/2 ML VIAL IV SCH ×2 (12:00→17:14)
--- NOTE | 2017-03-02 13:27 | PD.CAR.PN ---
CVT Progress Note CVT: POD #: 1 Subjective/Hospital Course: 66/ male visiting from [place], [place], successfully resuscitated and ROSC after AED defib, underwent cardia cath by Dr Gaona : EF 60% prox LAD 80%, CX 90% eval for coronary artery bypass grafting, ECG q waves inferior leads PMH: HTN, chronic back pain , prior tobacco abuse, now uses vapor cigs, recovering alcoholic 02/28 pt denies chest pain last pm scheduled for surgery 03/01 carotid US : ok elevated LFT's ? post shock liver/ neg Hep panel / enzymes improving / no statin with elevated LFT 03/01 LFT's improving , for surgery today no statin 2/2 elevated LFT no chest pain during the night surgery : CABG x 3, LEYVA to LAD - good, SVG to OM1 - good, SVG to PDA - good, EVH 03/01/17 extubated after surgery , crystalloid 3000cc, 250 EBL, pump time 62min 03/02 up in chair , remains in NSR hold statin , recheck LFT if stable then start statin if still elevated , will need to hold remains in NSR, will transfer to stepdown Objective: GENERAL: SKIN: Warm and dry.prevena to chest , incision intact ot leg HEAD: Normocephalic. EYES: No scleral icterus. No injection or drainage. NECK: Supple, trachea midline. No JVD or lymphadenopathy. CARDIOVASCULAR: Regular rate and rhythm without murmurs, gallops, or rubs. RESPIRATORY: Breath sounds equal bilaterally. No accessory muscle use. chest tube to wall suction, no air leak , drained 390cc/ 12 hrs GASTROINTESTINAL: Abdomen soft, non-tender, nondistended. MUSCULOSKELETAL: No cyanosis, or edema. BACK: Nontender without obvious deformity. No CVA tenderness. Vital Signs Date Time Temp Pulse Resp B/P Pulse Ox O2 Delivery O2 Flow Rate FiO2 03/02/17 12:21 18 03/02/17 11:23 18 03/02/17 11:00 79 03/02/17 11:00 Nasal Cannula 3.00 70 03/02/17 11:00 98.9 77 18 114/76 94 03/02/17 08:30 93 Nasal Cannula 3.00 03/02/17 07:00 68 03/02/17 07:00 98.2 63 20 135/65 97 147/59 03/02/17 07:00 94 Nasal Cannula 2.00 03/02/17 06:40 18 03/02/17 06:40 18 03/02/17 03:23 95 Simple Mask 10.00 03/02/17 03:00 94 Simple Mask 10.00 03/02/17 03:00 98.2 57 20 108/56 94 111/54 03/01/17 23:00 98.1 74 18 97/44 94 103/53 03/01/17 23:00 94 Simple Mask 10.00 03/01/17 22:15 95 Simple Mask 10.00 03/01/17 19:30 93 Mask 10 03/01/17 19:10 95 70 03/01/17 19:00 94 Mechanical Ventilator 70 03/01/17 19:00 98.7 77 18 115/69 94 137/61 03/01/17 18:45 70 03/01/17 18:45 60 16 104/58 93 121/59 03/01/17 18:45 96 Mechanical Ventilator 70 Labs: Laboratory Tests Test 03/02/17 04:20 White Blood Count 13.3 TH/MM3 (4.0-11.0) Red Blood Count 3.67 MIL/MM3 (4.50-5.90) Hemoglobin 11.2 GM/DL (13.0-17.0) Hematocrit 32.8 % (39.0-51.0) Mean Corpuscular Volume 89.3 FL (80.0-100.0) Mean Corpuscular Hemoglobin 30.5 PG (27.0-34.0) Mean Corpuscular Hemoglobin 34.1 % Concent (32.0-36.0) Red Cell Distribution Width 13.2 % (11.6-17.2) Platelet Count 115 TH/MM3 (150-450) Mean Platelet Volume 9.4 FL (7.0-11.0) Sodium Level 141 MEQ/L (136-145) Potassium Level 4.3 MEQ/L (3.5-5.1) Chloride Level 109 MEQ/L (98-107) Carbon Dioxide Level 24.0 MEQ/L (21.0-32.0) Anion Gap 8 MEQ/L (5-15) Blood Urea Nitrogen 20 MG/DL (7-18) Creatinine 0.71 MG/DL (0.60-1.30) Estimat Glomerular Filtration 111 ML/MIN Rate (>89) Random Glucose 127 MG/DL (74-106) Calcium Level 8.0 MG/DL (8.5-10.1) Magnesium Level 2.3 MG/DL (1.5-2.5) Result Diagram: 03/02/1741903/02/17419 Telemetry: NSR (1) Cardiac arrest (2) CAD (coronary artery disease) Plan: on ASA, BB no statin 2/2 elevated LFT for surgery today (3) S/P CABG x 3 Plan: multi ves dz; on asa/bb, holding statin for now due to LFT elevation/ recheck lft in am pulm toileting nebs ezpap acapella OOB, ambulate eval for HHC / will be staying at a friends house (4) Elevated LFTs Plan: indices improving / hep panel neg (5) NSTEMI (non-ST elevated myocardial infarction) Milana Brush Mar 02, 2017 13:27
--- NOTE | 2017-03-02 13:31 | HHI.FF ---
Face to Face Verification Diagnosis: (1) NSTEMI (non-ST elevated myocardial infarction) (2) S/P CABG x 3 (3) Acute kidney injury (4) Elevated LFTs Home Health Nursing Order: Signs/symptoms of disease process Wound care and dressing changes Nursing assessment with vital signs Instructions: Heart and Vascular Surgery patients *Special attention to sternal dressing Mandatory frequency Assess and evaluation, 4 days in a row The next week 3X week 2 times a week for 4 weeks 1 time a week for 5 weeks Schedule Heart and Vascular patients for full 60 day certification period Initial visit Review Open Heart Surgery Discharge Instructions (Sternal precautions, Activity, Elastic hose, Incision care, Driving, Incentive spirometry, Smoking, Watchung, Work and other) Need Betadine to paint incision Medication reconciliation Importance of follow up care/ check on appointments Make calendar record temperature daily When to call [facility] at Home nurse, review instructions, phone list Incentive Spirometry, demonstration Visit 1- Begin discharge instruction for patient family and/ or caregiver using teach back method- Signs and symptoms of infection Disease characteristics Medicines and side effects Foods and nutrition/ appetite Infection control/ hand washing/ hygiene Visit 2- Continue teaching Discharge instructions- include additional information on smoking cessation , sternal dressing (sternal vac) Visit 3- Continue teaching- Cough and deep breathing, incision monitoring. Choose my plate Visit 4- Continue teaching- Discuss limitations Discuss how they are feeling Discuss progress toward goals Remaining visits- continue teaching and monitoring PREVENA Single Use Negative Wound Therapy System Caregiver Instruction Sheet 1. A Prevena dressing system was applied to the chest incision during surgery , to promote wound healing. It works via a suction device (negative pressure wound therapy) to remove low to moderate levels of exudate (drainage) and infectious materials. We recommend that the device stay in place for up to seven days, from day of surgery. 2. Day of Surgery_/ Day of Removal ___03/08/17 3. The dressing should only be removed by a health animal care assistant. Please arrange removal of device to coincide with Home Health visit and or with Nursing staff at Rehab 4. If skin reddening or irritation of skin occurs, or excessive drainage, please notify the Cardiovascular Surgeons office at [phone]. 5. Light showering is permissible; however the pump should be disconnected and placed in safe location, where it will not get wet. The dressing should not be exposed to direct spray or submerged in water. No bath tub / shower only. Ensure the end of the tubing attached to the dressing is facing down so that water does not enter the top of the tube. 6. To remove Prevena dressing: press purple button to turn off device / remove the suction. Then disconnect the tubing from the pump. The fixation strips should be stretched away from the skin and the dressing lifted at one corner and peeled back until it has been fully removed. 7. After removal, it is ok to shower daily using liquid dial soap and clean wash cloth, rinse and pat dry, and leave incision open to air dry. For any concerns regarding Prevena dressing, and or wounds, please contact Tamie Olivas, patient navigator at [phone] or notify the Cardiovascular Surgeons office at [phone]. Incentive spirometry Q1 hr x 10, while awake, also use acapella device hourly whole awake Sternal Breast Bone Precautions: NO pushing or pulling, ( pt must use sternal pillow to support chest with all activities and with coughing ( takes up to 3 months breast bone to heal ) All females to wear sternal bra , launder as needed Daily incision care: ok to shower daily, no tub bath. Wash all incisions with liquid dial soap, clean wash cloth to each site, rinse and pat dry. Observe for any signs of infection, such as drainage which is dark yellow, hopkins, green or foul smelling. Immediately report to the surgeon any drainage from the chest incision, or legs, and for any abnormal drainage from the chest tube sites. Notify surgeon if any temp >101.5 degrees F. When specialty dressing removed/ or if you do not have one, continue to shower daily as above, then rinse and pat incision dry and paint with betadine daily x 5 days. Allow steri strips to fall off if you have any. Avoid lotions, creams, salves, oils, etc. for the first month Please see attached forms for additional instructions regarding post Open Heart specialty wound vacuum dressings. STEPHANIE or Prevena , Dressing to be removed by Nursing staff on ___03/08/17____ For Dr. Barron patients , please obtain CBC, BMP, PA & Lat CXR in 2 weeks, results to Dr. Barron ( prescription will be given) ( ) (Tele: [phone]) , Valve replacement pts will need 2decho in 2 weeks with results to Dr. Barron . Please obtain 2 d echo at your lot associate office if possible F/U appointment: as per HI instructions: PCP in 2 weeks, CV surgeon 2 weeks, Gun [employer] Manager 3-4 weeks For any questions regarding incisions/ dressing / meds / post op care or above Symptoms, Monday 8am-5pm Heart & Vascular Surgery Office ( Dr. Martinez & Dr. Barron), After Hours / Nights (5pm -8am) Weekends and Holidays Please call [facility] Card[facility] ([facility]) Charge Nurse I have seen patient Zaid Reyes on 03/02/17. My clinical findings support the need for the requested home health care services because: Deconditioned w/ increased weakness I certify that my clinical findings support that this patient is homebound because: Post-op weakness Milana Brush Mar 02, 2017 13:31
--- NOTE | 2017-03-02 15:00 | EKG ---
Date Performed: 03/02/2017 Time Performed: 04:53:34 PTAGE: 66 years EKG: Sinus bradycardia with PVC(s). Leftward axis Inferior infarct - age undetermined Nonspecifi c ST-T wave changes Compared to previous tracing, the patient now has new lateral T wave inversions. Abnormal ECG PREVIOUS TRACING : 02/26/2017 03.41 DOCTOR: Valentina Hager Interpretating Date/Time 03/02/2017 14:56:12
[2017-03-02] MEDS ORDERED: ALPRAZolam 0.5 MG TAB PO PRN (18:45)
[2017-03-02] MEDS: SENNOSIDES 8.6 MG TAB PO SCH (21:00)
[2017-03-03] VITALS (29 sets, daily range): BP systolic 108–155; BP diastolic 58–73; PULSE 62–95; RESP 16–20; TEMP 98.1–99.5; O2SAT 92–95
[2017-03-03] MEDS: INSULIN ASPART SUPPLEMENTAL SCALE SQ SCH ×5 (02:00→21:13)
[2017-03-03] MEDS: oxyCODONE/ACETAMINOPHEN 5 MG/325 MG TAB PO PRN ×5 (03:25→21:02)
[2017-03-03] MEDS: VANCOMYCIN INJ 1,000 MG in SODIUM CHLOR 0.9% 250 ML INJ 250 ML IV SCH (03:25)
[2017-03-03] MEDS: METOCLOPRAMIDE HCL 10 MG/2 ML VIAL IV SCH ×2 (06:00)
[2017-03-03] MEDS: AMIODARONE 200 MG TAB PO SCH ×3 (06:38→21:02)
[2017-03-03] MEDS: PANTOPRAZOLE SOD 40 MG DELAYED RELEASE TAB PO SCH (06:38)
[2017-03-03 07:01] LABS: BASOPHIL % 0.2 % (0.0-2.0); EOSINOPHIL # 0.1 TH/MM3 (0-0.4); EOSINOPHIL % 0.6 % (0.0-4.0); HEMATOCRIT 30.3 % (39.0-51.0); HEMO FLAGS DIFF FINAL; LYMPH % 10.5 % (9.0-44.0); LYMPHOCYTE # 1.3 TH/MM3 (1.0-4.8); MEAN CELL VOLUME 89.6 FL (80.0-100.0); MEAN CORPUSCULAR HEMOGLOBIN 31.1 PG (27.0-34.0); MEAN CORPUSCULAR HGB CONC 34.6 % (32.0-36.0); MONO % 13.7 % (0.0-8.0); PLATELET COUNT 139 TH/MM3 (150-450); RED BLOOD COUNT 3.38 MIL/MM3 (4.50-5.90); RED CELL DISTRIBUTION WIDTH 13.5 % (11.6-17.2)
[2017-03-03] MEDS: RESP: ALBUTEROL 2.5 MG/IPRATROPIUM 0.5 MG NEB (SCH) NEB ×3 (07:10→20:14)
[2017-03-03 07:26] LABS: ALKALINE PHOSPHATASE 40 U/L (45-117); ALT (GPT) 105 U/L (12-78); ANION GAP 8 MEQ/L (5-15); AST (GOT) 44 U/L (15-37); BICARBONATE 24.2 MEQ/L (21.0-32.0); BLOOD UREA NITROGEN 28 MG/DL (7-18); CHLORIDE 105 MEQ/L (98-107); GLOMERULAR FILTRATION RATE 90 ML/MIN (>89); MAGNESIUM 2.3 MG/DL (1.5-2.5); POTASSIUM 4.3 MEQ/L (3.5-5.1); SODIUM (NA) 137 MEQ/L (136-145); TOTAL BILIRUBIN ADULT 0.5 MG/DL (0.2-1.0)
--- NOTE | 2017-03-03 08:27 | HHI.PR ---
Subjective Remarks Follow up CAD, cardiac arrest. Patient states that his chest pain is "about the same". Having trouble taking deep breaths due to discomfort. Some dyspnea as well. Has been ambulating. Objective Vitals Vital Signs Date Time Temp Pulse Resp B/P Pulse Ox O2 Delivery O2 Flow Rate FiO2 03/03/17 07:37 72 03/03/17 07:37 98.2 72 20 146/67 92 Arterial Line 03/03/17 07:12 94 21 03/03/17 06:00 75 03/03/17 05:07 20 03/03/17 05:00 75 03/03/17 04:00 71 03/03/17 03:00 99.5 78 20 132/65 93 03/03/17 03:00 68 03/03/17 02:00 72 03/03/17 01:00 74 03/03/17 00:00 74 03/02/17 23:00 74 03/02/17 23:00 98.9 79 20 146/76 93 03/02/17 22:00 76 03/02/17 21:00 78 03/02/17 20:00 80 03/02/17 19:54 93 03/02/17 19:00 86 03/02/17 19:00 99.5 80 20 133/55 91 03/02/17 18:52 18 03/02/17 15:00 89 03/02/17 15:00 98.6 89 18 136/74 100 03/02/17 14:11 18 03/02/17 11:00 79 03/02/17 11:00 Nasal Cannula 3.00 70 03/02/17 11:00 98.9 77 18 114/76 94 03/02/17 08:30 93 Nasal Cannula 3.00 I/O 03/02/17 03/02/17 03/02/17 03/03/17 03/03/17 03/03/17 06:59 14:59 22:59 06:59 14:59 22:59 Intake Total 1644 ml 575 ml 240 ml Output Total 1269 ml 525 ml 785 ml Balance 375 ml 50 ml -545 ml Intake Oral 300 ml 275 ml 240 ml IV Total 1344 ml 300 ml Output Urine Total 875 ml 275 ml 525 ml Chest Tube Drainage Total 394 ml 250 ml 260 ml # Bowel Movements 0 Result Diagram: 03/03/17 0615 03/03/17 0615 Imaging Last Impressions Chest X-Ray 03/02/17 0500 Signed Impressions: Service Date/Time: February 04:07 - CONCLUSION: Left chest tube in place with no pneumothorax. The lungs are grossly clear. Nish Nevarez MD Lower Extremity Ultrasound 02/26/17 0000 Signed Impressions: Service Date/Time: Sunday, February 26, 2017 18:49 - CONCLUSION: 1. No evidence of DVT. 2. Large well-defined Pack's cyst right popliteal fossa. Nish Nevarez MD Carotid Artery Ultrasound 02/26/17 0000 Signed Impressions: Service Date/Time: Sunday, February 26, 2017 18:25 - CONCLUSION: No evidence for hemodynamically significant stenosis. Willis Reid MD Liver Ultrasound 02/25/17 0000 Signed Impressions: Service Date/Time: Saturday, February 25, 2017 22:28 - CONCLUSION: 1. Increased echotexture of the liver parenchyma which is inhomogeneous and there is borderline hepatomegaly. This can be seen with hepatocellular disease or hepatic steatosis. 2. Mild gallbladder wall thickening is noted. No stones are identified. Yves Zepeda MD Objective Remarks General: No acute distress. Sitting up in a chair. Heart: Regular rate and rhythm. No murmur. Chest wall: Tender to palpation bilaterally. Lungs: Clear to auscultation bilaterally. No wheezes, rales, or rhonchi. Breathing is nonlabored. Chest tube in place. Abdomen: Soft, nontender, nondistended. Extremities: No lower extremity edema. Psych: Alert and oriented. Procedures 02/27/17 Cardiac catheterization 03/01/17 CABG x 3 vessels Urinary Catheter: No Vascular Central Line Catheter: No A/P Problem List: (1) Cardiac arrest ICD Code: I46.9 Status: Resolved (2) Chest pain ICD Code: R07.9 Status: Acute (3) Creatinine elevation ICD Code: R79.89 Status: Acute (4) Shock liver ICD Code: K72.00 Status: Acute (5) Leukocytosis ICD Code: D72.829 Status: Acute (6) Elevated LFTs ICD Code: R79.89 Status: Acute (7) Acute kidney injury ICD Code: N17.9 Status: Acute (8) Elevated troponin I level ICD Code: R74.8 Status: Acute (9) CAD (coronary artery disease) ICD Code: I25.10 Status: Acute (10) NSTEMI (non-ST elevated myocardial infarction) ICD Code: I21.4 Status: Acute Assessment and Plan 1. Cardiac arrest: [place] An AED was applied and determined a shockable rhythm. One shock was delivered. He continues to report chest pain with movement, deep breaths, coughing. Appreciate cardiology recommendations. Serial cardiac enzymes show increased troponin. Cardiac catheterization showed 80% blockage of the LAD and 90% of the circumflex. S/P CABG x 3 vessels. Postoperative management per cardiovascular surgery. Chest tube in place. Statin on hold due to elevated LFTs. 2. Elevated LFTs: Likely secondary to shock liver. LFTs are trending down. Liver ultrasound noted. Hepatitis panel is negative. 3. Acute kidney injury: Improved. 4. Leukocytosis: Likely stress reaction. No other signs of infection at this time. Afebrile. Monitor labs. Continue incentive spirometer. 5. DVT prophylaxis: Per CV surgery. Discharge Planning Plan for discharge with home health when cleared by CV surgery. Problem Qualifiers (1) Chest pain: Qualified Code: R07.89 - Other chest pain Greg Knowles MD Mar 03, 2017 08:27
[2017-03-03] MEDS: KETOROLAC TROMETHAMINE 30 MG/ML (IVP) VIAL IV PUSH PRN ×2 (08:59→23:26)
[2017-03-03] MEDS: MAGNESIUM HYDROXIDE SUSP 30 ML CUP PO SCH (09:04)
[2017-03-03] MEDS: MULTIVITAMINS/MINERALS THERAPEUTIC TAB PO SCH (09:05)
[2017-03-03] MEDS: ASPIRIN 81 MG CHEW TAB PO SCH (09:05)
[2017-03-03] MEDS: DOCUSATE SODIUM 100 MG CAP PO SCH ×2 (09:05→21:02)
[2017-03-03] MEDS: POLYETHYLENE GLYCOL 17 GM PKG PO SCH (09:05)
[2017-03-03] MEDS: METOPROLOL TARTRATE 25 MG TAB PO SCH ×2 (09:09→21:02)
[2017-03-03] MEDS ORDERED: LEVA500T20 PO (13:13)
[2017-03-03] MEDS ORDERED: OXYC1TAB63 PO (13:13)
[2017-03-03] MEDS ORDERED: DOCU1CAP39 PO (13:13)
[2017-03-03] MEDS ORDERED: AMIO200T PO (13:13)
[2017-03-03] MEDS ORDERED: METO25TA3 PO (13:13)
[2017-03-03] MEDS ORDERED: ASPI81CH25 PO (13:13)
[2017-03-03] MEDS ORDERED: THERM PO (13:13)
[2017-03-03] MEDS ORDERED: LISI-519 PO (13:17)
[2017-03-03] MEDS ORDERED: FUROSEMIDE 40 MG/4 ML VIAL IV PUSH ONE (13:30)
[2017-03-03] MEDS ORDERED: POTASSIUM CHLORIDE 20 MEQ CONTROLLED RELEASE TAB PO ONE (13:30)
--- NOTE | 2017-03-03 13:30 | PD.CAR.PN ---
CVT Progress Note Subjective/Hospital Course: 66/ male visiting from [place], s/p vfib arrest while at [place], successfully resuscitated and ROSC after AED defib, underwent cardia cath by Dr Gaona : EF 60% prox LAD 80%, CX 90% eval for coronary artery bypass grafting, ECG q waves inferior leads PMH: HTN, chronic back pain , prior tobacco abuse, now uses vapor cigs, recovering alcoholic 02/28 pt denies chest pain last pm scheduled for surgery 03/01 carotid US : ok elevated LFT's ? post shock liver/ neg Hep panel / enzymes improving / no statin with elevated LFT 03/01 LFT's improving , for surgery today no statin 2/2 elevated LFT no chest pain during the night surgery : CABG x 3, LEYVA to LAD - good, SVG to OM1 - good, SVG to PDA - good, EVH 03/01/17 extubated after surgery , crystalloid 3000cc, 250 EBL, pump time 62min 03/02 up in chair , remains in NSR hold statin , recheck LFT if stable then start statin if still elevated , will need to hold remains in NSR, will transfer to stepdown 03/03 pt coughing up thick green sputum , sputum culture sent will start po levaquin, check CXR in am eval for dc on Monday add lisinopril for BP control, continue amiodarone for prophylaxis x 2 weeks gentle diuresis today leave chest tube in today Objective: GENERAL: SKIN: Warm and dry. prevena to chest , incision intact left leg, some ecchymosis to [facility] site director: Normocephalic. EYES: No scleral icterus. No injection or drainage. NECK: Supple, trachea midline. No JVD or lymphadenopathy. CARDIOVASCULAR: Regular rate and rhythm without murmurs, gallops, or rubs. RESPIRATORY: Breath sounds equal bilaterally. No accessory muscle use. coarse bilateral breath sounds, thick green sputum, chest tube to wall suction , no air leak, drained 260cc/ 12hrs GASTROINTESTINAL: Abdomen soft, non-tender, nondistended. MUSCULOSKELETAL: No cyanosis, or edema. BACK: Nontender without obvious deformity. No CVA tenderness. Vital Signs Date Time Temp Pulse Resp B/P Pulse Ox O2 Delivery O2 Flow Rate FiO2 03/03/17 11:20 98.1 62 20 144/66 95 03/03/17 11:20 62 03/03/17 07:37 72 03/03/17 07:37 98.2 72 20 146/67 92 Arterial Line 03/03/17 07:12 94 21 03/03/17 06:00 75 03/03/17 05:07 20 03/03/17 05:00 75 03/03/17 04:00 71 03/03/17 03:00 99.5 78 20 132/65 93 03/03/17 03:00 68 03/03/17 02:00 72 03/03/17 01:00 74 03/03/17 00:00 74 03/02/17 23:00 74 03/02/17 23:00 98.9 79 20 146/76 93 03/02/17 22:00 76 03/02/17 21:00 78 03/02/17 20:00 80 03/02/17 19:54 93 03/02/17 19:00 86 03/02/17 19:00 99.5 80 20 133/55 91 03/02/17 18:52 18 03/02/17 15:00 89 03/02/17 15:00 98.6 89 18 136/74 100 03/02/17 14:11 18 Labs: Laboratory Tests Test 03/03/17 06:15 White Blood Count 12.0 TH/MM3 (4.0-11.0) Red Blood Count 3.38 MIL/MM3 (4.50-5.90) Hemoglobin 10.5 GM/DL (13.0-17.0) Hematocrit 30.3 % (39.0-51.0) Mean Corpuscular Volume 89.6 FL (80.0-100.0) Mean Corpuscular Hemoglobin 31.1 PG (27.0-34.0) Mean Corpuscular Hemoglobin 34.6 % Concent (32.0-36.0) Red Cell Distribution Width 13.5 % (11.6-17.2) Platelet Count 139 TH/MM3 (150-450) Mean Platelet Volume 9.5 FL (7.0-11.0) Neutrophils (%) (Auto) 75.0 % (16.0-70.0) Lymphocytes (%) (Auto) 10.5 % (9.0-44.0) Monocytes (%) (Auto) 13.7 % (0.0-8.0) Eosinophils (%) (Auto) 0.6 % (0.0-4.0) Basophils (%) (Auto) 0.2 % (0.0-2.0) Neutrophils # (Auto) 9.0 TH/MM3 (1.8-7.7) Lymphocytes # (Auto) 1.3 TH/MM3 (1.0-4.8) Monocytes # (Auto) 1.6 TH/MM3 (0-0.9) Eosinophils # (Auto) 0.1 TH/MM3 (0-0.4) Basophils # (Auto) 0.0 TH/MM3 (0-0.2) CBC Comment DIFF FINAL Differential Comment Sodium Level 137 MEQ/L (136-145) Potassium Level 4.3 MEQ/L (3.5-5.1) Chloride Level 105 MEQ/L (98-107) Carbon Dioxide Level 24.2 MEQ/L (21.0-32.0) Anion Gap 8 MEQ/L (5-15) Blood Urea Nitrogen 28 MG/DL (7-18) Creatinine 0.85 MG/DL (0.60-1.30) Estimat Glomerular Filtration 90 ML/MIN (>89) Rate Random Glucose 114 MG/DL (74-106) Calcium Level 7.9 MG/DL (8.5-10.1) Magnesium Level 2.3 MG/DL (1.5-2.5) Total Bilirubin 0.5 MG/DL (0.2-1.0) Aspartate Amino Transf 44 U/L (15-37) (AST/SGOT) Alanine Aminotransferase 105 U/L (12-78) (ALT/SGPT) Alkaline Phosphatase 40 U/L (45-117) Total Protein 5.2 GM/DL (6.4-8.2) Albumin 2.4 GM/DL (3.4-5.0) Result Diagram: 03/03/1761403/03/17614 Telemetry: NSR (1) Cardiac arrest (2) CAD (coronary artery disease) Plan: on ASA, BB no statin 2/2 elevated LFT (3) S/P CABG x 3 Plan: multi ves dz; on asa/bb, continue to hold statin for now due to LFT elevation/ pulm toileting nebs ezpap acapella OOB, ambulate eval for HHC / will be staying at a friends house (4) Elevated LFTs Plan: indices improving / hep panel neg (5) NSTEMI (non-ST elevated myocardial infarction) (6) Atelectasis Plan: check sputum , add levaquin for now Milana Brush Mar 03, 2017 13:30
[2017-03-03] MEDS ORDERED: LEVOFLOXACIN 750 MG PREMIX INJ 150 ML IV ONE (14:00)
[2017-03-03] MEDS: SODIUM CHLORIDE 0.9% FLUSH 10 ML FLUSH IV FLUSH SCH ×2 (14:38→21:02)
[2017-03-03] MEDS: LISINOPRIL 5 MG TAB PO SCH (14:40)
[2017-03-03] MEDS: SENNOSIDES 8.6 MG TAB PO SCH (21:00)
[2017-03-04] VITALS (27 sets, daily range): BP systolic 122–145; BP diastolic 55–73; PULSE 58–82; RESP 16–20; TEMP 97.6–98.9; O2SAT 94–98
[2017-03-04] MEDS: oxyCODONE/ACETAMINOPHEN 5 MG/325 MG TAB PO PRN ×5 (03:22→22:14)
[2017-03-04] MEDS: AMIODARONE 200 MG TAB PO SCH ×3 (05:28→22:13)
[2017-03-04] MEDS: PANTOPRAZOLE SOD 40 MG DELAYED RELEASE TAB PO SCH (05:28)
[2017-03-04 06:23] LABS: AUTOMATED NEUTROPHIL # 8.9 TH/MM3 (1.8-7.7); BASOPHIL % 0.3 % (0.0-2.0); EOSINOPHIL # 0.3 TH/MM3 (0-0.4); EOSINOPHIL % 2.7 % (0.0-4.0); HEMATOCRIT 28.3 % (39.0-51.0); HEMO FLAGS DIFF FINAL; LYMPH % 9.9 % (9.0-44.0); LYMPHOCYTE # 1.2 TH/MM3 (1.0-4.8); MEAN CELL VOLUME 89.6 FL (80.0-100.0); MEAN CORPUSCULAR HEMOGLOBIN 30.9 PG (27.0-34.0); MEAN CORPUSCULAR HGB CONC 34.5 % (32.0-36.0); MONO % 11.7 % (0.0-8.0); NEUT % 75.4 % (16.0-70.0); PLATELET COUNT 142 TH/MM3 (150-450); RED BLOOD COUNT 3.16 MIL/MM3 (4.50-5.90); RED CELL DISTRIBUTION WIDTH 13.7 % (11.6-17.2); WHITE BLOOD COUNT 11.8 TH/MM3 (4.0-11.0)
[2017-03-04 06:26] LABS: ANION GAP 8 MEQ/L (5-15); AST (GOT) 37 U/L (15-37); BICARBONATE 25.7 MEQ/L (21.0-32.0); BLOOD UREA NITROGEN 33 MG/DL (7-18); CHLORIDE 103 MEQ/L (98-107); GLOMERULAR FILTRATION RATE 78 ML/MIN (>89); POTASSIUM 4.2 MEQ/L (3.5-5.1); SODIUM (NA) 137 MEQ/L (136-145)
[2017-03-04 06:27] LABS: ALT (GPT) 81 U/L (12-78)
[2017-03-04] MEDS: INSULIN ASPART SUPPLEMENTAL SCALE SQ SCH ×4 (06:28→21:00)
[2017-03-04 06:29] LABS: ALKALINE PHOSPHATASE 48 U/L (45-117); TOTAL BILIRUBIN ADULT 0.5 MG/DL (0.2-1.0)
--- NOTE | 2017-03-04 06:47 | RADRPT ---
EXAM DATE/TIME: 03/04/2017 06:02 [facility] COMPARISON: CHEST SINGLE AP, March 02, 2017, 4:07. INDICATIONS : Rule out pnuemonia, right side chest tube MEDICAL HISTORY : None. SURGICAL HISTORY : None. ENCOUNTER: Initial ACUITY: 1 day PAIN SCORE: 8/10 LOCATION: Bilateral chest FINDINGS: There has been interval removal of right neck central line. Chest tube and left thoracostomy tube remain in place. Mild left base parenchymal opacity is unchange d. Cardiac contour is grossly stable. CONCLUSION: Interval Central line removal. Mild persistent left base parenchymal opacity. Roger Thornton MD on March 04, 2017 at 6:45 Board Certified Radiologist. This report was verified electronically.
[2017-03-04] MEDS: ASPIRIN 81 MG CHEW TAB PO SCH (08:09)
[2017-03-04] MEDS: MAGNESIUM HYDROXIDE SUSP 30 ML CUP PO SCH (08:09)
[2017-03-04] MEDS: MULTIVITAMINS/MINERALS THERAPEUTIC TAB PO SCH (08:10)
[2017-03-04] MEDS: DOCUSATE SODIUM 100 MG CAP PO SCH ×2 (08:10→20:59)
[2017-03-04] MEDS: LEVOFLOXACIN 500 MG TAB PO SCH (08:10)
[2017-03-04] MEDS: POLYETHYLENE GLYCOL 17 GM PKG PO SCH (08:10)
[2017-03-04] MEDS: METOPROLOL TARTRATE 25 MG TAB PO SCH ×2 (08:10→22:13)
[2017-03-04] MEDS: LISINOPRIL 5 MG TAB PO SCH (08:10)
[2017-03-04] MEDS: KETOROLAC TROMETHAMINE 30 MG/ML (IVP) VIAL IV PUSH PRN (08:11)
[2017-03-04] MEDS: SODIUM CHLORIDE 0.9% FLUSH 10 ML FLUSH IV FLUSH SCH ×2 (08:15→22:15)
[2017-03-04] MEDS: RESP: ALBUTEROL 2.5 MG/IPRATROPIUM 0.5 MG NEB (SCH) NEB (08:44)
--- NOTE | 2017-03-04 11:08 | HHI.PR ---
Subjective Remarks Patient states he feels well. Pain is controlled. Denies any shortness, nausea or vomiting. He is pleased with his care here at [facility]. Wondering if he will get home health upon discharge. Discussed with RN, patient has a small wound in the intellectual cubicle area of the left arm which did drain some pus. They did send the pus for culture. Patient has been afebrile. No other concerns today. Chest tube drained 120 ml this morning. Objective Vitals Vital Signs Date Time Temp Pulse Resp B/P Pulse Ox O2 Delivery O2 Flow Rate FiO2 03/04/17 10:12 64 03/04/17 09:28 66 03/04/17 08:20 80 03/04/17 07:30 82 03/04/17 07:30 98.2 70 19 133/66 96 03/04/17 06:00 66 03/04/17 05:00 66 03/04/17 04:00 64 03/04/17 03:30 97.6 64 16 127/73 98 03/04/17 03:00 64 03/04/17 02:00 60 03/04/17 01:00 58 03/04/17 00:00 61 03/03/17 23:10 98.7 69 16 108/58 95 03/03/17 23:00 65 03/03/17 22:00 68 03/03/17 21:00 82 03/03/17 20:14 94 03/03/17 20:00 76 03/03/17 19:30 98.2 78 16 126/65 95 03/03/17 19:00 75 03/03/17 18:00 80 03/03/17 17:00 78 03/03/17 16:48 98.7 95 20 155/73 95 03/03/17 16:48 95 03/03/17 15:00 74 03/03/17 14:00 76 03/03/17 13:00 72 03/03/17 12:00 66 03/03/17 11:20 98.1 62 20 144/66 95 03/03/17 11:20 62 03/03/17 11:00 72 I/O 03/03/17 03/03/17 03/03/17 03/04/17 03/04/17 03/04/17 07:00 15:00 23:00 07:00 15:00 23:00 Intake Total 240 ml 1110 ml 720 ml Output Total 785 ml 830 ml 820 ml Balance -545 ml 280 ml -100 ml Intake Oral 240 ml 960 ml 720 ml IV Total 150 ml 0 ml Output Urine Total 525 ml 650 ml 700 ml Chest Tube Drainage Total 260 ml 180 ml 120 ml # Voids 2 # Bowel Movements 0 1 Result Diagram: 03/04/17 0520 03/04/17 0520 Imaging Last Impressions Chest X-Ray 03/04/17 0600 Signed Impressions: Service Date/Time: Saturday, March 04, 2017 06:02 - CONCLUSION: Interval Central line removal. Mild persistent left base parenchymal opacity. Roger Thornton MD Lower Extremity Ultrasound 02/26/17 0000 Signed Impressions: Service Date/Time: Sunday, February 26, 2017 18:49 - CONCLUSION: 1. No evidence of DVT. 2. Large well-defined Pack's cyst right popliteal fossa. Nish Nevarez MD Carotid Artery Ultrasound 02/26/17 0000 Signed Impressions: Service Date/Time: Sunday, February 26, 2017 18:25 - CONCLUSION: No evidence for hemodynamically significant stenosis. Willis Reid MD Liver Ultrasound 02/25/17 0000 Signed Impressions: Service Date/Time: Saturday, February 25, 2017 22:28 - CONCLUSION: 1. Increased echotexture of the liver parenchyma which is inhomogeneous and there is borderline hepatomegaly. This can be seen with hepatocellular disease or hepatic steatosis. 2. Mild gallbladder wall thickening is noted. No stones are identified. Yves Zepeda MD Objective Remarks General: No acute distress. Sitting up in a chair. Dressing over his chest present Eyes: Extraocular motion intact Heart: Regular rate and rhythm. No murmur. Chest wall: Tender to palpation bilaterally. Lungs: Clear to auscultation bilaterally. No wheezes, rales, or rhonchi. Breathing is nonlabored. Chest tube in place. Draining serosanguineous fluid Left antecubital area: Shows a small area of induration. Could not appreciate any fluctuance. Could not express any pus. There is an open wound there but is not currently draining. No surrounding erythema at this time Abdomen: Soft, nontender, nondistended. Extremities: No lower extremity edema. Moves all extremities well. Psych: Alert and oriented. Procedures 02/27/17 Cardiac catheterization 03/01/17 CABG x 3 vessels A/P Problem List: (1) Cardiac arrest ICD Code: I46.9 Status: Resolved (2) Chest pain ICD Code: R07.9 Status: Acute (3) Creatinine elevation ICD Code: R79.89 Status: Acute (4) Shock liver ICD Code: K72.00 Status: Acute (5) Leukocytosis ICD Code: D72.829 Status: Acute (6) Elevated LFTs ICD Code: R79.89 Status: Acute (7) Acute kidney injury ICD Code: N17.9 Status: Acute (8) Elevated troponin I level ICD Code: R74.8 Status: Acute (9) CAD (coronary artery disease) ICD Code: I25.10 Status: Acute (10) NSTEMI (non-ST elevated myocardial infarction) ICD Code: I21.4 Status: Acute Assessment and Plan 1. Cardiac arrest: [place] AED was applied and determined a shockable rhythm. One shock was delivered. He continues to report chest pain with movement, deep breaths, coughing but seems to be slowly improving. Today, pain better controlled.. Appreciate cardiology recommendations. Serial cardiac enzymes show increased troponin. Cardiac catheterization showed 80% blockage of the LAD and 90% of the circumflex. S/P CABG x 3 vessels. Postoperative management per cardiovascular surgery. Chest tube in place. Statin was on hold due to elevated LFTs however they are normalizing, will resume Lipitor tonight. 2. Elevated LFTs: Likely secondary to shock liver. LFTs are normalizing. Liver ultrasound noted. Hepatitis panel is negative. Continue to monitor repeat in the morning. 3. Acute kidney injury: Resolved 4. Leukocytosis: Likely stress reaction. . Patient was started on Levaquin by CT surgery. Chest x-ray is concerning for Mild persistent left base parenchymal opacity (early pneumonia versus atelectasis). Continue incentive spirometer and a cappella (Aggressive respiratory therapy). Left antecubital area has drained some pus after removing IV. There is a small area of induration, will order ultrasound of the antecubital fossa to rule out any small abscess. For now, add mupirocin cream to area. Apply warm compresses to area twice a day 5. DVT prophylaxis: Per CV surgery. Discharge Planning Plan for discharge with home health when cleared by CV surgery. Anticipating discharge on Monday We will wait for final recommendations from physical therapy. [id number] to be done at that time. Problem Qualifiers (1) Chest pain: Qualified Code: R07.89 - Other chest pain Rosanne Vargas MD Mar 04, 2017 11:08
[2017-03-04] MEDS: MUPIROCIN 2% CREAM 15 GM TOPICAL SCH ×2 (12:50→22:14)
[2017-03-04] MEDS: FUROSEMIDE 40 MG/4 ML VIAL IV PUSH SCH (13:54)
--- NOTE | 2017-03-04 13:55 | PD.CAR.PN ---
CVT Progress Note CVT: POD #: 3 Subjective/Hospital Course: 66/ male visiting from [place], [place], successfully resuscitated and ROSC after AED defib, underwent cardia cath by Dr Gaona : EF 60% prox LAD 80%, CX 90% eval for coronary artery bypass grafting, ECG q waves inferior leads PMH: HTN, chronic back pain , prior tobacco abuse, now uses vapor cigs, recovering alcoholic 02/28 pt denies chest pain last pm scheduled for surgery 03/01 carotid US : ok elevated LFT's ? post shock liver/ neg Hep panel / enzymes improving / no statin with elevated LFT 03/01 LFT's improving , for surgery today no statin 2/2 elevated LFT no chest pain during the night surgery : CABG x 3, LEYVA to LAD - good, SVG to OM1 - good, SVG to PDA - good, EVH 03/01/17 extubated after surgery , crystalloid 3000cc, 250 EBL, pump time 62min 03/02 up in chair , remains in NSR hold statin , recheck LFT if stable then start statin if still elevated , will need to hold remains in NSR, will transfer to stepdown 03/03 pt coughing up thick green sputum , sputum culture sent will start po levaquin, check CXR in am eval for dc on Monday add lisinopril for BP control, continue amiodarone for prophylaxis x 2 weeks gentle diuresis today leave chest tube in today 03/04/17 No complaints today, doing well Objective: Vital Signs Date Time Temp Pulse Resp B/P Pulse Ox O2 Delivery O2 Flow Rate FiO2 03/04/17 13:30 19 03/04/17 13:29 59 03/04/17 12:28 60 03/04/17 11:30 74 03/04/17 11:30 98.7 64 20 122/57 96 03/04/17 10:12 64 03/04/17 09:28 66 03/04/17 08:20 80 03/04/17 07:30 82 03/04/17 07:30 98.2 70 19 133/66 96 03/04/17 06:00 66 03/04/17 05:00 66 03/04/17 04:00 64 03/04/17 03:30 97.6 64 16 127/73 98 03/04/17 03:00 64 03/04/17 02:00 60 03/04/17 01:00 58 03/04/17 00:00 61 03/03/17 23:10 98.7 69 16 108/58 95 03/03/17 23:00 65 03/03/17 22:00 68 03/03/17 21:00 82 03/03/17 20:14 94 03/03/17 20:00 76 03/03/17 19:30 98.2 78 16 126/65 95 03/03/17 19:00 75 03/03/17 18:00 80 03/03/17 17:00 78 03/03/17 16:48 98.7 95 20 155/73 95 03/03/17 16:48 95 03/03/17 15:00 74 03/03/17 14:00 76 Labs: Laboratory Tests Test 03/04/17 05:20 White Blood Count 11.8 TH/MM3 (4.0-11.0) Red Blood Count 3.16 MIL/MM3 (4.50-5.90) Hemoglobin 9.8 GM/DL (13.0-17.0) Hematocrit 28.3 % (39.0-51.0) Mean Corpuscular Volume 89.6 FL (80.0-100.0) Mean Corpuscular Hemoglobin 30.9 PG (27.0-34.0) Mean Corpuscular Hemoglobin 34.5 % Concent (32.0-36.0) Red Cell Distribution Width 13.7 % (11.6-17.2) Platelet Count 142 TH/MM3 (150-450) Mean Platelet Volume 9.6 FL (7.0-11.0) Neutrophils (%) (Auto) 75.4 % (16.0-70.0) Lymphocytes (%) (Auto) 9.9 % (9.0-44.0) Monocytes (%) (Auto) 11.7 % (0.0-8.0) Eosinophils (%) (Auto) 2.7 % (0.0-4.0) Basophils (%) (Auto) 0.3 % (0.0-2.0) Neutrophils # (Auto) 8.9 TH/MM3 (1.8-7.7) Lymphocytes # (Auto) 1.2 TH/MM3 (1.0-4.8) Monocytes # (Auto) 1.4 TH/MM3 (0-0.9) Eosinophils # (Auto) 0.3 TH/MM3 (0-0.4) Basophils # (Auto) 0.0 TH/MM3 (0-0.2) CBC Comment DIFF FINAL Differential Comment Sodium Level 137 MEQ/L (136-145) Potassium Level 4.2 MEQ/L (3.5-5.1) Chloride Level 103 MEQ/L (98-107) Carbon Dioxide Level 25.7 MEQ/L (21.0-32.0) Anion Gap 8 MEQ/L (5-15) Blood Urea Nitrogen 33 MG/DL (7-18) Creatinine 0.96 MG/DL (0.60-1.30) Estimat Glomerular Filtration 78 ML/MIN (>89) Rate Random Glucose 99 MG/DL (74-106) Calcium Level 7.9 MG/DL (8.5-10.1) Total Bilirubin 0.5 MG/DL (0.2-1.0) Aspartate Amino Transf 37 U/L (15-37) (AST/SGOT) Alanine Aminotransferase 81 U/L (12-78) (ALT/SGPT) Alkaline Phosphatase 48 U/L (45-117) Total Protein 5.3 GM/DL (6.4-8.2) Albumin 2.3 GM/DL (3.4-5.0) Result Diagram: 03/04/1751903/04/17519 Imaging: Last 24 hours Impressions Chest X-Ray 03/04/17 0600 Signed Impressions: Service Date/Time: Saturday, March 04, 2017 06:02 - CONCLUSION: Interval Central line removal. Mild persistent left base parenchymal opacity. Roger Thornton MD Cardiovascular: RRR Telemetry: NSR Pulmonary: CTA GI/: NABS, NT Incision: dry and intact CT: 120ml/12 hrs Plan: Diurese Cont chest tubes one more day - on water seal Plan d/c tomorrow if tubes can be removed Continue BB, statin, ASA (1) Cardiac arrest (2) CAD (coronary artery disease) Plan: on ASA, BB no statin 2/2 elevated LFT (3) S/P CABG x 3 Plan: multi ves dz; on asa/bb, continue to hold statin for now due to LFT elevation/ pulm toileting nebs ezpap acapella OOB, ambulate eval for HHC / will be staying at a friends house (4) Elevated LFTs Plan: indices improving / hep panel neg (5) NSTEMI (non-ST elevated myocardial infarction) (6) Atelectasis Plan: check sputum , add levaquin for now Evelyn Barron MD Mar 04, 2017 13:55
--- NOTE | 2017-03-04 18:16 | RADRPT ---
EXAM DATE/TIME: 03/04/2017 17:25 [facility] COMPARISON: No previous studies available for comparison. INDICATIONS : Left arm palpable lump. MEDICAL HISTORY : Hypertension. Renal calculi. Syncope. SURGICAL HISTORY : Tonsillectomy. Hernia repair. Bilateral wrist repair. ENCOUNTER: Initial ACUITY: 1 day PAIN SCORE: 7/10 LOCATION: Left arm. AREA EVALUATED: Left antecubital fossa. FINDINGS: MASSES: None. FLUID COLLECTIONS: None. OTHER: Occlusive thrombus within the antecubital portion of the brachial vein. CONCLUSION: 1. Occlusive thrombus within the antecubital portion of the brachial vein Ghulam Chaudhry MD on March 04, 2017 at 18:14 Board Certified Radiologist. This report was verified electronically.
[2017-03-04] MEDS: SENNOSIDES 8.6 MG TAB PO SCH (20:59)
[2017-03-04] MEDS: ATORVASTATIN 40 MG TAB PO SCH (22:14)
[2017-03-05] VITALS (17 sets, daily range): BP systolic 123–136; BP diastolic 57–62; PULSE 55–93; RESP 14–21; TEMP 98.5–99; O2SAT 93–95
[2017-03-05] MEDS: oxyCODONE/ACETAMINOPHEN 5 MG/325 MG TAB PO PRN ×3 (04:35→11:42)
[2017-03-05] MEDS: PANTOPRAZOLE SOD 40 MG DELAYED RELEASE TAB PO SCH (04:35)
[2017-03-05] MEDS: AMIODARONE 200 MG TAB PO SCH ×2 (04:35→13:09)
[2017-03-05 05:46] LABS: AUTOMATED NEUTROPHIL # 8.8 TH/MM3 (1.8-7.7); BASOPHIL # 0.1 TH/MM3 (0-0.2); BASOPHIL % 0.4 % (0.0-2.0); EOSINOPHIL # 0.4 TH/MM3 (0-0.4); EOSINOPHIL % 3.8 % (0.0-4.0); HEMATOCRIT 31.3 % (39.0-51.0); HEMO FLAGS DIFF FINAL; LYMPH % 11.2 % (9.0-44.0); LYMPHOCYTE # 1.3 TH/MM3 (1.0-4.8); MEAN CELL VOLUME 91.3 FL (80.0-100.0); MEAN CORPUSCULAR HEMOGLOBIN 30.5 PG (27.0-34.0); MEAN CORPUSCULAR HGB CONC 33.4 % (32.0-36.0); MONO % 8.1 % (0.0-8.0); NEUT % 76.5 % (16.0-70.0); PLATELET COUNT 199 TH/MM3 (150-450); RED BLOOD COUNT 3.42 MIL/MM3 (4.50-5.90); RED CELL DISTRIBUTION WIDTH 13.7 % (11.6-17.2); WHITE BLOOD COUNT 11.4 TH/MM3 (4.0-11.0)
[2017-03-05 06:16] LABS: ANION GAP 7 MEQ/L (5-15); AST (GOT) 38 U/L (15-37); BICARBONATE 24.8 MEQ/L (21.0-32.0); BLOOD UREA NITROGEN 32 MG/DL (7-18); CHLORIDE 103 MEQ/L (98-107); GLOMERULAR FILTRATION RATE 71 ML/MIN (>89); POTASSIUM 4.1 MEQ/L (3.5-5.1); SODIUM (NA) 135 MEQ/L (136-145)
[2017-03-05 06:17] LABS: ALT (GPT) 76 U/L (12-78)
[2017-03-05] MEDS: INSULIN ASPART SUPPLEMENTAL SCALE SQ SCH ×2 (06:18→11:00)
[2017-03-05 06:19] LABS: ALKALINE PHOSPHATASE 49 U/L (45-117); TOTAL BILIRUBIN ADULT 0.5 MG/DL (0.2-1.0)
[2017-03-05] MEDS: LEVOFLOXACIN 500 MG TAB PO SCH (08:09)
[2017-03-05] MEDS: MULTIVITAMINS/MINERALS THERAPEUTIC TAB PO SCH (08:09)
[2017-03-05] MEDS: POLYETHYLENE GLYCOL 17 GM PKG PO SCH (08:09)
[2017-03-05] MEDS: MAGNESIUM HYDROXIDE SUSP 30 ML CUP PO SCH (08:09)
[2017-03-05] MEDS: LISINOPRIL 5 MG TAB PO SCH (08:09)
[2017-03-05] MEDS: DOCUSATE SODIUM 100 MG CAP PO SCH (08:09)
[2017-03-05] MEDS: FUROSEMIDE 40 MG/4 ML VIAL IV PUSH SCH (08:10)
[2017-03-05] MEDS: ASPIRIN 81 MG CHEW TAB PO SCH (08:10)
[2017-03-05] MEDS: MUPIROCIN 2% CREAM 15 GM TOPICAL SCH (08:10)
[2017-03-05] MEDS: METOPROLOL TARTRATE 25 MG TAB PO SCH (08:11)
[2017-03-05] MEDS: SODIUM CHLORIDE 0.9% FLUSH 10 ML FLUSH IV FLUSH SCH (08:14)
--- NOTE | 2017-03-05 10:29 | HHI.PR ---
Subjective Remarks No acute events overnight. Afebrile. VSS. Patient denies pain. Is sitting up in chair with no complaints at this time. CT/wound vac in place. Objective Vitals Vital Signs Date Time Temp Pulse Resp B/P Pulse Ox O2 Delivery O2 Flow Rate FiO2 03/05/17 10:05 60 03/05/17 09:30 20 03/05/17 09:12 59 03/05/17 08:30 61 03/05/17 07:57 98.5 62 20 129/62 94 03/05/17 07:57 57 03/05/17 06:13 60 03/05/17 05:36 62 03/05/17 04:23 99.0 64 14 129/60 94 03/05/17 04:21 60 03/05/17 03:00 62 03/05/17 02:09 61 03/05/17 01:53 72 03/05/17 01:07 03/05/17 00:10 69 03/05/17 00:00 98.7 60 14 136/57 93 03/04/17 23:25 65 03/04/17 23:00 68 03/04/17 22:00 68 03/04/17 21:00 66 03/04/17 20:00 72 03/04/17 19:15 98.9 73 16 145/58 94 03/04/17 19:00 66 03/04/17 18:37 67 03/04/17 17:17 69 03/04/17 16:09 67 03/04/17 15:08 69 03/04/17 15:05 98.7 65 19 123/55 97 03/04/17 13:29 59 03/04/17 12:28 60 03/04/17 11:30 74 03/04/17 11:30 98.7 64 20 122/57 96 I/O 03/04/17 03/04/17 03/04/17 03/05/17 03/05/17 03/05/17 07:00 15:00 23:00 07:00 15:00 23:00 Intake Total 720 ml 600 ml 360 ml Output Total 820 ml 1100 ml 860 ml Balance -100 ml -500 ml -500 ml Intake Oral 720 ml 360 ml IV Total 0 ml 600 ml Output Urine Total 700 ml 900 ml 800 ml Chest Tube Drainage Total 120 ml 200 ml 60 ml # Bowel Movements 1 3 1 Result Diagram: 03/05/17 0444 03/05/17 0444 Objective Remarks General: No acute distress. Sitting up in a chair. Dressing over his chest present Eyes: Extraocular motion intact Heart: Regular rate and rhythm. No murmur. Chest wall: Tender to palpation bilaterally. Lungs: Clear to auscultation bilaterally. No wheezes, rales, or rhonchi. Breathing is nonlabored. Chest tube in place. Draining serosanguineous fluid Left antecubital area: Shows a small area of induration. Could not appreciate any fluctuance. Could not express any pus. There is an open wound there but is not currently draining. No surrounding erythema at this time Abdomen: Soft, nontender, nondistended. Extremities: No lower extremity edema. Moves all extremities well. Psych: Alert and oriented. Procedures 02/27/17 Cardiac catheterization 03/01/17 CABG x 3 vessels A/P Problem List: (1) Cardiac arrest ICD Code: I46.9 Status: Resolved (2) Chest pain ICD Code: R07.9 Status: Acute (3) Creatinine elevation ICD Code: R79.89 Status: Acute (4) Shock liver ICD Code: K72.00 Status: Acute (5) Leukocytosis ICD Code: D72.829 Status: Acute (6) Elevated LFTs ICD Code: R79.89 Status: Acute (7) Acute kidney injury ICD Code: N17.9 Status: Acute (8) Elevated troponin I level ICD Code: R74.8 Status: Acute (9) CAD (coronary artery disease) ICD Code: I25.10 Status: Acute (10) NSTEMI (non-ST elevated myocardial infarction) ICD Code: I21.4 Status: Acute Assessment and Plan 1. Cardiac arrest: [place] An AED was applied and determined a shockable rhythm. One shock was delivered. Serial cardiac enzymes show increased troponin. Cardiac catheterization showed 80% blockage of the LAD and 90% of the circum1. S/P CABG x 3 vessels. Postoperative management per cardiovascular surgery. Chest tube in place. Statin was on hold due to elevated LFTs however they are normalizing, Lipitor resumed. 2. Elevated LFTs: Likely secondary to shock liver. LFTs are normalizing. Liver ultrasound noted. Hepatitis panel is negative. 3. Acute kidney injury: Resolved 4. Leukocytosis: Likely stress reaction. Patient was started on Levaquin by CT surgery. Chest x-ray is concerning for Mild persistent left base parenchymal opacity (early pneumonia versus atelectasis). Continue incentive spirometer and a cappella (Aggressive respiratory therapy). Left antecubital area had drained some pus after removing IV. There is a small area of induration, US shoed occlusive thrombus of the branchial vein. No abscess. Mupirocin cream to area. Apply warm compresses to area twice a day 5. DVT prophylaxis: Per CV surgery Discharge Planning To home once cleared by CT surgery Problem Qualifiers (1) Chest pain: Qualified Code: R07.89 - Other chest pain Dona Mullen MD R3 Mar 05, 2017 10:29
--- NOTE | 2017-03-05 11:34 | HHI.DS ---
Discharge Summary Admission Date Feb 25, 2017 at 16:37 Admitting Diagnosis dysrhythmia/chest pain/syncope cardiac arrest NSTEMI (1) Cardiac arrest (2) Chest pain Diagnosis: Principal (3) Creatinine elevation Diagnosis: Secondary (4) Shock liver Diagnosis: Secondary (5) Leukocytosis Diagnosis: Secondary (6) Elevated LFTs Diagnosis: Secondary (7) Acute kidney injury Diagnosis: Secondary (8) Elevated troponin I level Diagnosis: Principal (9) CAD (coronary artery disease) Diagnosis: Principal (10) NSTEMI (non-ST elevated myocardial infarction) Diagnosis: Principal Procedures CABG Left heart cath Echo Brief History Subjective/Hospital Course: 66/ male visiting from [place], s/p vfib arrest while at [place], successfully resuscitated and ROSC after AED defib, underwent cardia cath by Dr Gaona : EF 60% prox LAD 80%, CX 90% eval for coronary artery bypass grafting, ECG q waves inferior leads PMH: HTN, chronic back pain , prior tobacco abuse, now uses vapor cigs, recovering alcoholic CBC/BMP: 03/05/17 0444 03/05/17 0444 Significant Findings Laboratory Tests Test 03/03/17 03/04/17 03/05/17 06:15 05:20 04:44 White Blood Count 12.0 TH/MM3 11.8 TH/MM3 11.4 TH/MM3 (4.0-11.0) (4.0-11.0) (4.0-11.0) Red Blood Count 3.38 MIL/MM3 3.16 MIL/MM3 3.42 MIL/MM3 (4.50-5.90) (4.50-5.90) (4.50-5.90) Hemoglobin 10.5 GM/DL 9.8 GM/DL 10.4 GM/DL (13.0-17.0) (13.0-17.0) (13.0-17.0) Hematocrit 30.3 % 28.3 % 31.3 % (39.0-51.0) (39.0-51.0) (39.0-51.0) Platelet Count 139 TH/MM3 142 TH/MM3 (150-450) (150-450) Neutrophils (%) (Auto) 75.0 % 75.4 % 76.5 % (16.0-70.0) (16.0-70.0) (16.0-70.0) Monocytes (%) (Auto) 13.7 % 11.7 % 8.1 % (0.0-8.0) (0.0-8.0) (0.0-8.0) Neutrophils # (Auto) 9.0 TH/MM3 8.9 TH/MM3 8.8 TH/MM3 (1.8-7.7) (1.8-7.7) (1.8-7.7) Monocytes # (Auto) 1.6 TH/MM3 1.4 TH/MM3 (0-0.9) (0-0.9) Blood Urea Nitrogen 28 MG/DL (7-18) 33 MG/DL (7-18) 32 MG/DL (7-18) Random Glucose 114 MG/DL 122 MG/DL (74-106) (74-106) Calcium Level 7.9 MG/DL 7.9 MG/DL 8.2 MG/DL (8.5-10.1) (8.5-10.1) (8.5-10.1) Aspartate Amino Transf 44 U/L (15-37) 38 U/L (15-37) (AST/SGOT) Alanine Aminotransferase 105 U/L (12-78) 81 U/L (12-78) (ALT/SGPT) Alkaline Phosphatase 40 U/L (45-117) Total Protein 5.2 GM/DL 5.3 GM/DL 5.7 GM/DL (6.4-8.2) (6.4-8.2) (6.4-8.2) Albumin 2.4 GM/DL 2.3 GM/DL 2.2 GM/DL (3.4-5.0) (3.4-5.0) (3.4-5.0) Estimat Glomerular Filtration 78 ML/MIN (>89) 71 ML/MIN (>89) Rate Sodium Level 135 MEQ/L (136-145) Imaging Last Impressions Chest X-Ray 03/04/17 0600 Signed Impressions: Service Date/Time: Saturday, March 04, 2017 06:02 - CONCLUSION: Interval Central line removal. Mild persistent left base parenchymal opacity. Roger Thornton MD Upper Extremity Ultrasound 03/04/17 0000 Signed Impressions: Service Date/Time: Saturday, March 04, 2017 17:25 - CONCLUSION: 1. Occlusive thrombus within the antecubital portion of the brachial vein Ghulam Chaudhry MD Lower Extremity Ultrasound 02/26/17 0000 Signed Impressions: Service Date/Time: Sunday, February 26, 2017 18:49 - CONCLUSION: 1. No evidence of DVT. 2. Large well-defined Pack's cyst right popliteal fossa. Nish Nevarez MD Carotid Artery Ultrasound 02/26/17 0000 Signed Impressions: Service Date/Time: Sunday, February 26, 2017 18:25 - CONCLUSION: No evidence for hemodynamically significant stenosis. Willis Reid MD Liver Ultrasound 02/25/17 0000 Signed Impressions: Service Date/Time: Saturday, February 25, 2017 22:28 - CONCLUSION: 1. Increased echotexture of the liver parenchyma which is inhomogeneous and there is borderline hepatomegaly. This can be seen with hepatocellular disease or hepatic steatosis. 2. Mild gallbladder wall thickening is noted. No stones are identified. Yves Zepeda MD PE at Discharge chest - CTA COR - RRR ABD - soft, NT Wound - dry and intact Hospital Course 02/28 pt denies chest pain last pm scheduled for surgery 03/01 carotid US : ok elevated LFT's ? post shock liver/ neg Hep panel / enzymes improving / no statin with elevated LFT 03/01 LFT's improving , for surgery today no statin 2/2 elevated LFT no chest pain during the night surgery : CABG x 3, LEYVA to LAD - good, SVG to OM1 - good, SVG to PDA - good, EVH 03/01/17 extubated after surgery , crystalloid 3000cc, 250 EBL, pump time 62min 03/02 up in chair , remains in NSR hold statin , recheck LFT if stable then start statin if still elevated , will need to hold remains in NSR, will transfer to stepdown 03/03 pt coughing up thick green sputum , sputum culture sent will start po levaquin, check CXR in am eval for dc on Monday add lisinopril for BP control, continue amiodarone for prophylaxis x 2 weeks gentle diuresis today leave chest tube in today 03/04/17 No complaints today, doing well Pt Condition on Discharge: Good Discharge Disposition: Disch w/ Home Health Serv Discharge Instructions DIET: Follow Instructions for: Heart Healthy Diet Activities you can perform: Full Weight Bearing, Shower Only-No Bath Activities to avoid: Driving Additional Activity Instructio: no liftting > 8 lbs or gallon of milk Follow up Referrals: Cardiology with Aris Henriquez MD PCP Follow-up with DR VAZQUEZ Surgical with Evelyn Barron MD New Orders: BASIC METABOLIC PROF - 2 Weeks CBC NO DIFF - 2 Weeks X-RAY CHEST PA & LAT - 2 Weeks New Medications: Levofloxacin (Levaquin) 500 Mg Tablet 500 MG PO DAILY bronchitis #5 Ref 0 TAB Lisinopril (Lisinopril) 5 Mg Tab 5 MG PO DAILY Blood Pressure Management #30 Ref 2 TAB Amiodarone (Amiodarone) 200 Mg Tab 200 MG PO BID prevent irregular heart rhythm, no refill heart rhythm #28 Ref 0 TAB Aspirin (Aspirin Low Strength) 81 Mg Chew 81 MG PO DAILY Blood Clot Prevention #100 Ref 2 EA Docusate Sodium (Dok) 100 Mg Cap 100 MG PO BID Constipation #60 Ref 0 CAP Metoprolol Tartrate (Metoprolol Tartrate) 25 Mg Tab 25 MG PO BID Blood Pressure Management #60 Ref 2 TAB Multiple Vitamins W/ Minerals (Thera M Plus) 1 Tab 1 TAB PO DAILY multi vitamin #30 Ref 2 TAB Oxycodone-Acetaminophen (Oxycodone-Acetaminophen) 5-325 mg Tab 1 TAB PO Q6HR PRN PAIN SCALE 1 TO 5 #40 Ref 0 TAB Continued Medications: Ascorbic Acid (Ascorbic Acid) 500 Mg Tab 500 MG PO DAILY TAB B-Complex Vitamins (B Complex) 1 Cap 1 CAP PO DAILY Nutritional Supplement #30 Ref 0 CAP Cholecalciferol (Vitamin D3) 1,000 Unit Tab 1000 UNITS PO DAILY Nutritional Supplement #1 Ref 0 BOTTLE Ginkgo Biloba [place] Extract (Ginkgo Biloba) 60 Mg Tablet Unknown Dose PO DAILY Turmeric (Curcuma Longa) (Turmeric) 500 Mg Cap 500 MG PO DAILY Vitamin E Acetate (Vitamin E) 400 Unit Capsule 400 UNITS PO DAILY Discontinued Medications: Oxycodone (Oxycodone) 10 Mg Tab 10 MG PO Q6H PRN PAIN Ref 0 TAB Evelyn Barron MD Mar 05, 2017 11:33
== END 2017-03-05 14:15 | disposition home health service (06) | DRG 233 ==
LOC: NEPC 14:01 → NEDA 16:37 → HCIS 18:40 → HCVR 02-26 16:06 → HCIN 02-28 14:05 → HCIS 03-01 13:22 → HCVR 03-01 18:29 → HCIN 03-02 10:38
PROVIDERS: ADMIT Family Medicine; ATTEND Hospitalist
PROC: 4A023N7 Measurement of Cardiac Sampling and Pressure, Left Heart, Percutaneous Approach (ICD-10-PCS; 2017-02-26)
PROC: B2111ZZ Fluoroscopy of Multiple Coronary Arteries using Low Osmolar Contrast (ICD-10-PCS; 2017-02-26)
PROC: B2151ZZ Fluoroscopy of Left Heart using Low Osmolar Contrast (ICD-10-PCS; 2017-02-26)
PROC: 021109W Bypass Coronary Artery, Two Arteries from Aorta with Autologous Venous Tissue, Open Approach (ICD-10-PCS; 2017-03-01)
PROC: 06BQ4ZZ Excision of Left Saphenous Vein, Percutaneous Endoscopic Approach (ICD-10-PCS; 2017-03-01)
PROC: 5A1221Z Performance of Cardiac Output, Continuous (ICD-10-PCS; 2017-03-01)
PROC: 02100Z9 Bypass Coronary Artery, One Artery from Left Internal Mammary, Open Approach (ICD-10-PCS; principal; 2017-03-01 13:22)
DX: I21.4 Non-ST elevation (NSTEMI) myocardial infarction (principal); I49.01 Ventricular fibrillation; K72.00 Acute and subacute hepatic failure without coma; I46.2 Cardiac arrest due to underlying cardiac condition; N17.9 Acute kidney failure, unspecified; J98.11 Atelectasis; I82.622 Acute embolism and thrombosis of deep veins of left upper extremity; I10 Essential (primary) hypertension; I25.10 Atherosclerotic heart disease of native coronary artery without angina pectoris; D72.829 Elevated white blood cell count, unspecified; R55 Syncope and collapse; M54.9 Dorsalgia, unspecified; G89.29 Other chronic pain; F17.290 Nicotine dependence, other tobacco product, uncomplicated; Z88.0 Allergy status to penicillin
CPT/HCPCS: 36430; 36600; 71010; 76705; 76882; 76937; 80048; 80053; 80074; 81001; 82272; 82550; 82552; 82805; 82948; 83036; 83735; 84484; 85002; 85025; 85027; 85610; 85730; 86850; 86900; 86901; 86920; 87070; 87071; 87185; 87205; 87640; 87641; 93005; 93454; 93880; 93970; 93998; 94002; 94010; 94150; 94640; 94664; 94667; 94668; 96374; C1725; C1760; C1769; C1887; C1893; G0269; J0131; J0171; J1644; J1815; J1885; J1940; J1956; J2150; J2250; J2270; J2370; J2710; J2720; J2765; J2930; J3010; J3370; J3475; J3480; J7030; J7050; P9016; P9047; Q9967